=== PATIENT | male | born 1950 ===

== ENCOUNTER 2018-04-14 23:13 | Inpatient (IN) | payer MEDICARE ==
[2018-04-15] MEDS ORDERED: Sodium Chloride 0.9% 1,000 ML IV STA (00:44)
[2018-04-15 00:57] LABS: BASO # 0.1 K/uL (0.0-0.2); BASO % 0.6 % (0.0-2.0); EOS % 0.1 % (0.0-4.0); HEMOGLOBIN 12.1 g/dL (12.0-18.0); LYMPH # 2.8 K/uL (1.0-4.3); LYMPH % 25.8 % (20.0-40.0); MEAN CELL VOLUME 93.1 fl (80.0-94.0); MEAN CORPUSCULAR HEMOGLOBIN 31.6 pg (27.0-31.0); MEAN CORPUSCULAR HGB CONC 33.9 g/dL (33.0-37.0); MEAN PLATELET VOLUME 7.2 fl (7.2-11.7); MONO # 1.4 K/uL (0.0-0.8); MONO % 12.9 % (0.0-10.0); NEUT # 6.6 K/uL (1.8-7.0); NEUT % 60.6 % (50.0-75.0); NRBC % 0.1 % (0.0-0.0); RBC 3.84 Mil/uL (4.40-5.90); WHITE BLOOD COUNT 10.8 K/uL (4.8-10.8)
--- NOTE | 2018-04-15 00:58 | ED PDOC ---
HPI: General Adult Time Seen by Provider: 04/14/18 23:46 Chief Complaint (Nursing): Fever Chief Complaint (Provider): Fever History Per: Patient History/Exam Limitations: no limitations Onset/Duration Of Symptoms: Days (x2) Current Symptoms Are (Timing): Still Present Additional Complaint(s): 67 year old male presents to ED with complaints of fever, chills, and weakness x2 days and has a past medical history of HTN, BPH, and depression. Patient states he was recently admitted at [facility] for 1 week with a diagnosis of PNA. States he subsequently went to [facility] rehab facility and was discharged with an indwelling [place] catheter. Notes onset of symptoms after return home. (+) weight loss. (-) vomiting or diarrhea. Of note, patient is on a course of Bactrim currently and confirms that he is compliant with all prescribed medications. PCP: Alex Flores Past Medical History Reviewed: Historical Data, Nursing Documentation, Vital Signs Vital Signs: Last Vital Signs Temp 97.4 F L 04/15/18 03:59 Pulse 81 04/15/18 03:59 Resp 20 04/15/18 03:59 BP 104/69 04/15/18 03:59 Pulse Ox 97 04/15/18 03:59 - Medical History PMH: Anxiety, COPD, Depression, HIV, HTN, Pneumonia Denies: No Chronic Diseases - Family History Family History: States: No Known Family Hx - Living Arrangements Living Arrangements: With Family - Home Medications Home Medications: Ambulatory Orders Medication Instructions Recorded Carvedilol [Coreg] 1 tab PO DAILY 04/15/18 Clopidogrel [Plavix] 75 mg PO DAILY 04/15/18 Pantoprazole [Protonix EC Tab] 40 mg PO DAILY 04/15/18 Sertraline [Zoloft] 100 mg PO DAILY 04/15/18 Sulfamethoxazole/Trimethoprim 160 - 800 mg PO DAILY 04/15/18 [Bactrim 400-80 mg Tablet] - Allergies Allergies/Adverse Reactions: Allergies Allergy/AdvReac Type Severity Reaction Status Date / Time No Known Allergies Allergy Verified 04/14/18 23:19 Review of Systems ROS Statement: Except As Marked, All Systems Reviewed And Found Negative Constitutional: Positive for: Fever, Chills, Weakness, Weight loss Gastrointestinal: Negative for: Vomiting, Diarrhea Physical Exam - Reviewed Nursing Documentation Reviewed: Yes Vital Signs Reviewed: Yes - Physical Exam Appears: Positive for: Non-toxic, No Acute Distress (Febrile). Negative for: Well ([place] in appearance) Skin: Positive for: Normal Color, Warm, Dry ENT: Negative for: Normal ENT Inspection (dry mucous membranes) Cardiovascular/Chest: Positive for: Regular Rate, Rhythm, Tachycardia Respiratory: Positive for: Normal Breath Sounds. Negative for: Respiratory Distress Gastrointestinal/Abdominal: Positive for: Soft. Negative for: Tenderness Extremity: Positive for: Normal ROM. Negative for: Deformity Neurologic/Psych: Positive for: Alert, Oriented. Negative for: Motor/Sensory Deficits - Laboratory Results Result Diagrams: 04/15/18 00:05 04/15/18 00:05 - ECG ECG: Positive for: Interpreted By Me, Viewed By Me ECG Rhythm: Positive for: Normal QRS, Sinus Tachycardia. Negative for: Normal ST Segment (non-specific ST segments) Rate: 112 (23:40 04/14/18) O2 Sat by Pulse Oximetry: 95 (RA) Pulse Ox Interpretation: Normal Medical Decision Making Medical Decision Makin Initial impression: 67 year old with a febrile illness in setting of recent hospitalization and indwelling [place] Initial plan: * EKG * Labs * Lact acid * CXR * NS IV * Acetaminophen 650mg PO * BCx * UCs * Influenza A B * UA * Re-eval 0110 CXR: bilateral infiltrates, more prominent in the left lower lobe. * CTA CHEST * Rocephin 1gm IVPB * Azithromycin 500mg IVPB 0129 Labs reviewed: no clinically significant abnormalities with the exception of large hematuria and WBC - indicative of UTI. Discussed case with Dr. Dickinson who covers Dr. Flores and accepts patient under his service (INPATIENT MED/SURG) Condition: fair 0230 CTA CHEST FINDINGS: Lungs: Extensive interstitial and patchy consolidation in both lungs most significant in the periphery of the left lower lobe and lingula. Scattered mild bronchiectasis and tree in bud opacities. Left lower lobe calcified granuloma. Pleural space: Trace left pleural effusion. No pneumothorax. Heart: No cardiomegaly or pericardial effusion. Bones/joints: No acute osseous abnormality. Soft tissues: No soft tissue swelling. Vasculature: Cardiac motion limits assessment of the ascending aorta. The aorta is otherwise unremarkable. No central pulmonary malignancy. Lymph nodes: No adenopathy. Kidneys and ureters: Partially visualized left hydronephrosis. 4 cm left renal cyst. IMPRESSION: 1. Extensive interstitial and patchy consolidation in both lungs most significant in the periphery of the left lower lobe and lingula. Scattered mild bronchiectasis and tree in bud opacities. Leading considerations include bronchopneumonia, chronic airways disease, interstitial lung disease and pneumoconiosis. 2. Partially visualized left hydronephrosis. Correlate with dedicated renal imaging if needed. Scribe Attestation: Documented by Melissa Tate acting as a scribe for Ritesh Tamayo MD. Scribe Attestation: All medical record entries made by the Scribe were at my direction and personally dictated by me. I have reviewed the chart and agree that the record accurately reflects my personal performance of the history, physical exam, medical decision making, and the department course for this patient. I have also personally directed, reviewed, and agree with the discharge instructions and disposition. Disposition - Clinical Impression Clinical Impression: Pneumonia - Patient ED Disposition Is Patient to be Admitted: Yes - Disposition Disposition Time: 01:18 Condition: FAIR - Pt Status Changed To: Hospital Disposition Of: Inpatient (MED/SURG) - Admit Certification Admit to Inpatient:: After my assessment, the patient will require hospitalization for at least two midnights. This is because of the severity of symptoms shown, intensity of services needed, and/or the medical risk in this patient being treated as an outpatient.
[2018-04-15 01:02] LABS: URINE BACTERIA OCC (<OCC); URINE BILIRUBIN NEGATIVE (NEGATIVE); URINE BLOOD LARGE (NEGATIVE); URINE CALCIUM OXALATE CRYSTALS FEW /hpf (<OCC); URINE CLARITY CLOUDY (Clear); URINE COLOR YELLOW (YELLOW); URINE GLUCOSE (UA) NEG (Normal); URINE LEUKOCYTE ESTERASE MOD Leu/uL (Negative); URINE PROTEIN 100 mg/dL (NEGATIVE); URINE UROBILINOGEN 0.2-1.0 mg/dL (0.2-1.0)
[2018-04-15] MEDS ORDERED: Azithromycin 500 MG in Sodium Chloride 0.9% 250 ML IVPB STA (01:09)
[2018-04-15 01:13] LABS: CALCIUM 8.8 mg/dL (8.4-10.2); GFR AFRICAN-AMERICAN > 60; GFR NON-AFRICAN AMERICAN > 60
[2018-04-15 01:16] LABS: ALB/GLOB RATIO 0.7 (1.0-2.1); ALBUMIN 3.4 g/dL (3.5-5.0); ALT/SGPT 26 U/L (21-72); AST/SGOT 71 U/L (17-59); BLOOD UREA NITROGEN 28 mg/dl (9-20)
[2018-04-15] MEDS ORDERED: Sodium Chloride 0.9% 50 ML IV ONE (01:28)
[2018-04-15] MEDS ORDERED: Iohexol 300 100 ML IJ ONE (01:28)
[2018-04-15] MEDS ORDERED: cefTRIAXone (Rocephin) 1 gm Inj ONE (01:45)
[2018-04-15] MEDS ORDERED: Sodium Chloride 3% for Inhalation 4 ML VIAL.NEB IH PRN (06:38)
[2018-04-15 07:55] LABS: BASO % 0.4 % (0.0-2.0); HEMOGLOBIN 10.3 g/dL (12.0-18.0); LYMPH # 2.1 K/uL (1.0-4.3); MEAN CELL VOLUME 92.9 fl (80.0-94.0); MEAN CORPUSCULAR HEMOGLOBIN 31.7 pg (27.0-31.0); MEAN CORPUSCULAR HGB CONC 34.1 g/dL (33.0-37.0); MEAN PLATELET VOLUME 6.7 fl (7.2-11.7); MONO # 1.1 K/uL (0.0-0.8); MONO % 12.5 % (0.0-10.0); NEUT # 5.3 K/uL (1.8-7.0); NEUT % 62.1 % (50.0-75.0); RBC 3.25 Mil/uL (4.40-5.90); RED CELL DISTRIBUTION WIDTH 17.8 % (11.5-14.5); WHITE BLOOD COUNT 8.6 K/uL (4.8-10.8)
[2018-04-15 08:21] LABS: LDL CHOLESTEROL 76 mg/dL (0-129)
[2018-04-15 08:26] LABS: T4 3.73 ug/dl (5.5-11.0)
[2018-04-15 08:55] LABS: ALB/GLOB RATIO 0.7 (1.0-2.1); ALBUMIN 2.6 g/dL (3.5-5.0); ALT/SGPT 35 U/L (21-72); AST/SGOT 47 U/L (17-59); BLOOD UREA NITROGEN 23 mg/dl (9-20); CALCIUM 8.1 mg/dL (8.4-10.2); GFR AFRICAN-AMERICAN > 60; GFR NON-AFRICAN AMERICAN > 60; HDL CHOLESTEROL 19 MG/DL (30-70)
--- NOTE | 2018-04-15 09:29 | IP.NPCORE ---
Pneumonia Progress Notes - Oxygenation Assessment (REQUIRED) Documented 02: Yes O2 Saturation: 97 Oxygen Delivery Method: Room Air - Blood Cultures (REQUIRED) Culture drawn: Yes - Initial Antibiotic Initial Antibiotic given within Four Hours:: Yes - Appropriate Antibiotic Appropriate Antibiotic within 24 hours of Admission:: Yes Current Antibiotic: Rocephin/Zithromax - Pneumonia Vaccine Pneumonia Vaccine: Yes (After age 65)
[2018-04-15] MEDS ORDERED: Azithromycin 500 MG in Sodium Chloride 0.9% 250 ML IVPB SCH (09:45)
--- NOTE | 2018-04-15 09:46 | CT ---
PROCEDURE: CT Chest with contrast HISTORY: B/L infiltrates COMPARISON: None. TECHNIQUE: Contiguous axial images were obtained through the chest with intravenous contrast enhancement. Sagittal and coronal reconstructions were performed. IV contrast: 85 mL Omnipaque 300 Radiation dose (DLP): 178 mGy-cm. This CT exam was performed using one or more of the following dose reduction techniques: Automated exposure control, adjustment of the mA and/or kV according to patient size, and/or use of iterative reconstruction technique. FINDINGS: LUNGS: Bilateral hyperaeration and bilateral scattered prominent interstitial lung markings suggestive of interstitial lung disease. Scattered multi focal bilateral bronchiectasis and bilateral scattered tree in bud inflammatory like changes present. Patchy bilateral areas of consolidation blend with traction bronchiectasis most pronounced in the left mid to lower lung zone ; here the left consolidation blends with left pleural thickening. Several of the small amorphous areas of scattered bilateral lung opacities have some nodular configuration to them. This is nonspecific. Without prior studies to establish stability, follow-up CT chest with 6 months is recommended MEDIASTINUM: Unremarkable thoracic aorta. No aneurysm or dissection. Normal sized heart. Main pulmonary artery unremarkable. No vascular congestion. No lymphadenopathy. PLEURA: No pleural fluid. No pneumothorax. Pleural thickening most extensive mid to lower lung zone contiguous with the left lung consolidation and blending left traction bronchiectasis BONES: No fracture. No destructive lesion. UPPER ABDOMEN: A 3.5 cm exophytic left renal cyst is suggested. A smaller prior 1.6 cm hypodensity in the left intrarenal pelvis is noted the left kidney is not fully visualized-this may represent a left parapelvic cyst. Left hydronephrosis is not excluded. Follow-up recommended. Consider renal ultrasound to further evaluate OTHER FINDINGS: . IMPRESSION: Nonspecific bilateral patchy interstitial lung disease -with a reticular nodular component. There are small cystic emphysematous changes seen peripherally. There are left traction bronchiectasis changes that blend with coalescing left lung consolidation and also blend with left pleural reaction. These latter findings are in the left mid to lower lung zone. Mixed pathologies are suspect -for example chronic interstitial lung disease, bronchopneumonia. Underlying neoplasm not excluded. Consider follow-up CT chest with 6 months is recommended Left exophytic renal cyst. Possible left parapelvic renal cyst -left intrarenal pelviectasis not excluded. Consider renal ultrasound. Concordant results (preliminary interpretation) provided by [employer].
[2018-04-15] MEDS: Pantoprazole 40 mg EC Tab PO SCH (09:56)
--- NOTE | 2018-04-15 10:26 | RAD ---
HISTORY: Fever COMPARISON: No prior. FINDINGS: LUNGS: Lungs appear mildly hyperinflated. Coarsened interstitial the changes (reticulonodular appearance) suggest underlying interstitial fibrosis. There is patchy somewhat lobular pleural-based masslike opacity in the left lateral mid to lower lung zone with questionable associated on scarring fibrosis and possibly bronchiectasis. . PLEURA: No significant pleural effusion identified, no pneumothorax apparent. CARDIOVASCULAR: Normal. OSSEOUS STRUCTURES: No significant abnormalities. VISUALIZED UPPER ABDOMEN: Normal. OTHER FINDINGS: None. IMPRESSION: Lungs appear mildly hyperinflated. Coarsened interstitial the changes (reticulonodular appearance) suggest underlying interstitial fibrosis. There is patchy somewhat lobular pleural-based masslike opacity in the left lateral mid to lower lung zone with questionable associated on scarring fibrosis and possibly bronchiectasis. .
[2018-04-15] MEDS: Clindamycin 600mg/50ml NS 600 MG/50 ML BAG IVPB SCH ×2 (10:34→17:00)
[2018-04-15] MEDS: Enoxaparin 40 mg Syringe SC SCH (10:35)
[2018-04-15] MEDS: Piperacillin/Tazobact 3.375 GM in Sodium Chloride 0.9% 100 ML IVPB SCH ×3 (10:35→21:04)
--- NOTE | 2018-04-15 11:05 | CARD ---
APPROVED REPORT EKG Measurement Heart [id number] <Conclusion> Sinus tachycardia Anterior infarct, age undetermined Abnormal ECG
--- NOTE | 2018-04-15 12:09 | CP.PCM.HP ---
History of Present Illness - History of Present Illness History of Present Illness: CC: Fever. 67 y/o M, PMHx COPD, PNA, HIV +, HTN, [facility], while in the ER TMAx 101.2, that began 2 days [employer], increased at home to 102 F, on DOA, associated to chills, generalized weakness and dry cough with no relief. Hx of been discharged recently from [facility] with a indwelling [place] Cath after treated for PNA. Worsening symptoms: Weight loss, not eating well. Aggravated factor: movements/exercise. CT Chest showed: Nonspecific b/l patches interstitial lung disease with a reticular nodular component. There are small cystic emphysematous changes seen peripherally. There are L traction bronchiectasis changes that blend with coalescing left lung consolidation and also blend with left pleural effusion. These latter findings are in the left mid to lower lung zone. Mixed pathologies are suspect for example chronic interstitial lung disease, bronchopneumonia. Underlying neoplasm not excluded. Left exophytic renal cyst. Possible Left parapelvic renal cyst-left intrarenal pelviectasis not excluded. EKG: Sinus tachycardia. Anterior infarct age undetermined. Present on Admission - Present on Admission Any Indicators Present on Admission: No Review of Systems - Constitutional Constitutional: Chills, Fever, Weakness, Other (decreased appetite.) - EENT Eyes: Other (negative) Ears: Other (negative) Nose/Mouth/Throat: Other (negative) - Cardiovascular Cardiovascular: Rapid Heart Rate - Respiratory Respiratory: Cough (dry occasional.) - Gastrointestinal Gastrointestinal: Other (negative) - Genitourinary Genitourinary: Other (negative) - Musculoskeletal Musculoskeletal: Muscle Weakness - Integumentary Integumentary: Other (negative) - Neurological Neurological: Other (negative) - Psychiatric Psychiatric: Anxiety, Depression - Endocrine Endocrine: Change in Body Appearance - Hematologic/Lymphatic Hematologic: Other (negative) Past Patient History - Past Medical History & Family History Past Medical History?: Yes Pertinent Family History: Unknown - Past Social History Smoking Status: Former Smoker Alcohol: None Drugs: Denies Home Situation {Lives}: With Family - CARDIAC Hx Cardiac Disorders: Yes Hx Hypertension: Yes - PULMONARY Hx Respiratory Disorders: Yes Hx Chronic Obstructive Pulmonary Disease (COPD): Yes Hx Pneumonia: Yes - NEUROLOGICAL Hx Neurological Disorder: No - HEENT Hx HEENT Problems: No - RENAL Hx Chronic Kidney Disease: No - ENDOCRINE/METABOLIC Hx Endocrine Disorders: No - HEMATOLOGICAL/ONCOLOGICAL Hx Blood Disorders: Yes Hx Human Immunodeficiency Virus (HIV): Yes - INTEGUMENTARY Hx Dermatological Problems: No - MUSCULOSKELETAL/RHEUMATOLOGICAL Hx Musculoskeletal Disorders: Yes (generalized muscle weakness) Hx Falls: No - GENITOURINARY/GYNECOLOGICAL Hx Genitourinary Disorders: Yes (urinary retention) Hx Prostate Problems: Yes (Enlargement) Hx Urinary Tract Infection: Yes Other/Comment: Suprapubic cathether - PSYCHIATRIC Hx Psychophysiologic Disorder: Yes Hx Anxiety: Yes Hx Depression: Yes Hx Substance Use: No - SURGICAL HISTORY Hx Surgeries: Yes - ANESTHESIA Hx Anesthesia: Yes Hx Anesthesia Reactions: No Meds Allergies/Adverse Reactions: Allergies Allergy/AdvReac Type Severity Reaction Status Date / Time No Known Allergies Allergy Verified 04/14/18 23:19 Physical Exam - Constitutional Appears: No Acute Distress - Head Exam Head Exam: NORMAL INSPECTION - Eye Exam Eye Exam: PERRL - ENT Exam ENT Exam: Normal Exam - Neck Exam Neck exam: Positive for: Normal Inspection - Respiratory Exam Respiratory Exam: NORMAL BREATHING PATTERN - Cardiovascular Exam Cardiovascular Exam: REGULAR RHYTHM - GI/Abdominal Exam GI & Abdominal Exam: Normal Bowel Sounds, Soft Additional comments: Suprapubic catheter - Extremities Exam Extremities exam: Positive for: normal inspection - Neurological Exam Neurological exam: Alert, Oriented x3 Additional comments: Generalized weakness. No motor/sensory deficit. - Psychiatric Exam Psychiatric exam: Anxious, Depressed - Skin Skin Exam: Warm Results - Vital Signs Recent Vital Signs: Last Vital Signs Temp 97.6 F 04/15/18 08:00 Pulse 91 H 04/15/18 09:56 Resp 18 04/15/18 08:00 BP 127/77 04/15/18 09:56 Pulse Ox 97 04/15/18 09:29 reviewed Elias - Labs Result Diagrams: 04/15/18 07:49 04/15/18 07:49 Labs: Laboratory Results - last 24 hr 04/15/18 04/15/18 04/15/18 00:05 00:05 00:05 WBC 10.8 RBC 3.84 L Hgb 12.1 Hct 35.7 MCV 93.1 MCH 31.6 H MCHC 33.9 RDW 18.0 H Plt Count 564 H MPV 7.2 Neut % (Auto) 60.6 Lymph % (Auto) 25.8 [place] % (Auto) 12.9 H Eos % (Auto) 0.1 Baso % (Auto) 0.6 Neut # (Auto) 6.6 Lymph # (Auto) 2.8 [place] # (Auto) 1.4 H Eos # (Auto) 0.0 Baso # (Auto) 0.1 Sodium 132 Potassium 5.4 H Chloride 97 L Carbon Dioxide 25 Anion Gap 15 BUN 28 H Creatinine 1.2 Est GFR ( Amer) > 60 Est GFR (Non-Af Amer) > 60 Random Glucose 103 Lactic Acid 1.1 Calcium 8.8 Total Bilirubin 1.1 AST 71 H ALT 26 Alkaline Phosphatase 84 Total Protein 8.1 Albumin 3.4 L Globulin 4.7 H Albumin/Globulin Ratio 0.7 L Triglycerides Cholesterol LDL Cholesterol Direct HDL Cholesterol Thyroxine (T4) TSH 3rd Generation Urine Color Urine Clarity Urine pH Ur Specific [place] Urine Protein Urine Glucose (UA) Urine Ketones Urine Blood Urine Nitrate Urine Bilirubin Urine Urobilinogen Ur Leukocyte Esterase Urine RBC (Auto) Urine Microscopic WBC Calcium Oxalate Crystal Urine Bacteria Influenza Typ A,B (EIA) 04/15/18 04/15/18 04/15/18 00:05 00:30 07:49 WBC 8.6 RBC 3.25 L Hgb 10.3 L Hct 30.2 L MCV 92.9 MCH 31.7 H MCHC 34.1 RDW 17.8 H Plt Count 463 H D MPV 6.7 L Neut % (Auto) 62.1 Lymph % (Auto) 25.0 [place] % (Auto) 12.5 H Eos % (Auto) 0.0 Baso % (Auto) 0.4 Neut # (Auto) 5.3 Lymph # (Auto) 2.1 [place] # (Auto) 1.1 H Eos # (Auto) 0.0 Baso # (Auto) 0.0 Sodium Potassium Chloride Carbon Dioxide Anion Gap BUN Creatinine Est GFR ( Amer) Est GFR (Non-Af Amer) Random Glucose Lactic Acid Calcium Total Bilirubin AST ALT Alkaline Phosphatase Total Protein Albumin Globulin Albumin/Globulin Ratio Triglycerides Cholesterol LDL Cholesterol Direct HDL Cholesterol Thyroxine (T4) TSH 3rd Generation Urine Color Yellow Urine Clarity Cloudy Urine pH 7.0 Ur Specific [place] 1.019 Urine Protein 100 Urine Glucose (UA) Neg Urine Ketones Negative Urine Blood Large Urine Nitrate Negative Urine Bilirubin Negative Urine Urobilinogen 0.2-1.0 Ur Leukocyte Esterase Mod Urine RBC (Auto) 1234 H Urine Microscopic WBC 72 H Calcium Oxalate Crystal Few H Urine Bacteria Occ H Influenza Typ A,B (EIA) Negative for flu a/b 04/15/18 07:49 WBC RBC Hgb Hct MCV MCH MCHC RDW Plt Count MPV Neut % (Auto) Lymph % (Auto) [place] % (Auto) Eos % (Auto) Baso % (Auto) Neut # (Auto) Lymph # (Auto) [place] # (Auto) Eos # (Auto) Baso # (Auto) Sodium 134 Potassium 4.8 Chloride 99 Carbon Dioxide 27 Anion Gap 13 BUN 23 H Creatinine 1.2 Est GFR ( Amer) > 60 Est GFR (Non-Af Amer) > 60 Random Glucose 101 Lactic Acid Calcium 8.1 L Total Bilirubin 0.5 AST 47 ALT 35 Alkaline Phosphatase 74 Total Protein 6.3 Albumin 2.6 L D Globulin 3.6 Albumin/Globulin Ratio 0.7 L Triglycerides 99 Cholesterol 127 LDL Cholesterol Direct 76 HDL Cholesterol 19 L Thyroxine (T4) 3.73 L TSH 3rd Generation 3.42 Urine Color Urine Clarity Urine pH Ur Specific [place] Urine Protein Urine Glucose (UA) Urine Ketones Urine Blood Urine Nitrate Urine Bilirubin Urine Urobilinogen Ur Leukocyte Esterase Urine RBC (Auto) Urine Microscopic WBC Calcium Oxalate Crystal Urine Bacteria Influenza Typ A,B (EIA) reviewed J.P. - EKG Data EKG comments: reviewed J.P. - Imaging and Cardiology CT scan - chest Status: Report reviewed by me ([email or web address].) Chest x-ray Status: Report reviewed by me (J.P.) Assessment & Plan (1) Pneumonia Status: Acute Priority: High (2) HIV (human immunodeficiency virus infection) Status: Acute Priority: High - Assessment and Plan (Free Text) Plan: F/U Echo, Blood C-S, U C-S, Sputum C-S, Culture Legionella, Contiue Vanco, Clinda, Lovenox, Coreg, Plavix and rest of Tx. Pt may need Bronchoscopy. F/U abx coverage as per ID [employer] plm consultant. F/U ID consult. - Date & Time Date: 04/15/18 Time: 11:30
--- NOTE | 2018-04-15 15:11 | CP.PCM.PN ---
Subjective - Date & Time of Evaluation Date of Evaluation: 04/15/18 Time of Evaluation: 15:00 - Subjective Subjective: I D NOTE PATIENT EXAMINED,CHART REVIEWED ORDERS DISCUSSED,FULL CONSULT DICTATED WILL LIKELY NEED BRONCHOSCOPY Objective - Vital Signs/Intake and Output Vital Signs (last 24 hours): Temp Pulse Resp BP Pulse Ox 97.6 F 91 H 18 127/77 97 04/15/18 08:00 04/15/18 09:56 04/15/18 08:00 04/15/18 09:56 04/15/18 09:29 - Medications Medications: Current Medications Carvedilol (Coreg) 6.25 mg PO DAILY [facility] Last Admin: 04/15/18 09:56 Dose: 6.25 mg Clopidogrel Bisulfate (Plavix) 75 mg PO DAILY [facility] Last Admin: 04/15/18 09:56 Dose: 75 mg Enoxaparin Sodium (Lovenox) 40 mg SC DAILY AMINA PRN Reason: Protocol Last Admin: 04/15/18 10:35 Dose: 40 mg Piperacillin Sod/Tazobactam (Sod 3.375 gm/ Sodium Chloride) 100 mls @ 100 mls/ hr IVPB Q6 AMINA PRN Reason: Protocol Last Admin: 04/15/18 10:35 Dose: 100 mls/hr Clindamycin Phosphate (Cleocin In Normal Saline) 600 mg in 50 mls @ 50 mls/hr IVPB Q8 AMINA PRN Reason: Protocol Last Admin: 04/15/18 10:34 Dose: 50 mls/hr Ondansetron HCl (Zofran Inj) 4 mg IVP Q6 PRN PRN Reason: Nausea/Vomiting Pantoprazole Sodium (Protonix Ec Tab) 40 mg PO DAILY [facility] Last Admin: 04/15/18 09:56 Dose: 40 mg Sertraline HCl (Zoloft) 100 mg PO DAILY [facility] Last Admin: 04/15/18 09:44 Dose: 100 mg Trimethoprim/Sulfamethoxazole (Bactrim Ds Tab) 1 tab PO Q12 AMINA PRN Reason: Protocol - Labs Labs: 04/15/18 07:49 04/15/18 07:49
--- NOTE | 2018-04-15 15:53 | CARD ---
APPROVED REPORT EXAM: Two-dimensional and M-mode echocardiogram with Doppler and color Doppler. Other Information Quality : AverageRhythm : INDICATION PNA 2D DIMENSIONS IVSd1.13 (0.7-1.1cm)LVDd4.61 (3.9-5.9cm) LVOT Diameter1.99 (1.8-2.4cm)PWd1.04 (0.7-1.1cm) IVSs1.57 (0.8-1.2cm)LVDs3.64 (2.5-4.0cm) FS (%) 21.1 %PWs1.14 (0.8-1.2cm) M-Mode DIMENSIONS Left Atrium (MM)2.87 (2.5-4.0cm)Aortic Root3.50 (2.2-3.7cm) Aortic Cusp Exc.1.38 (1.5-2.0cm) Mitral Valve MV E Hxgvujip28.3cm/sMV DECEL [id number] A Lhywnrri39.4cm/s MV [id number]/A ratio1.0MVA (PHT)4.82cm2 TDI Lateral E' Peak V10.76cm/sMedial E' Peak V7.58cm/sE/Lateral E'5.8 E/Medial E'8.2 Pulmonary Valve PV Peak Gqdpciqr288.5cm/s LEFT VENTRICLE The left ventricle is normal size. The left ventricular function is normal. The left ventricular ejection fraction is within the normal range. The Ejection Fraction is 55-60%. There is normal LV segmental wall motion. The left ventricular diastolic function is normal. RIGHT VENTRICLE The right ventricle is normal size. The right ventricular systolic function is normal. ATRIA The left atrium size is normal. The right atrium size is normal. AORTIC VALVE The aortic valve is normal in structure. No aortic regurgitation is present. There is no aortic valvular stenosis. MITRAL VALVE The mitral valve is normal in structure. There is no mitral valve stenosis. There is no mitral valve regurgitation noted. TRICUSPID VALVE The tricuspid valve is normal in structure. There is no tricuspid valve regurgitation noted. PULMONIC VALVE The pulmonary valve is normal in structure. There is no pulmonic valvular regurgitation. GREAT VESSELS The aortic root is normal in size. The IVC is normal in size and collapses >50% with inspiration. PERICARDIAL EFFUSION The pericardium appears normal. <Conclusion> The left ventricle is normal size. The left ventricular function is normal. The left ventricular ejection fraction is within the normal range. The Ejection Fraction is 55-60%.
[2018-04-15] MEDS: Tmp-Smz 800 mg-160 mg DS Tab PO SCH ×2 (16:45→21:04)
[2018-04-15 20:42] LABS: HEPATITIS B SURFACE AG Negative (NEGATIVE)
[2018-04-15 20:48] LABS: HEPATITIS A IGM NEGATIVE (NEGATIVE); HEPATITIS B CORE AB NEGATIVE (NEGATIVE)
[2018-04-15 21:00] LABS: HEPATITIS C ANTIBODY NEGATIVE (NEGATIVE)
[2018-04-16] MEDS: Clindamycin 600mg/50ml NS 600 MG/50 ML BAG IVPB SCH ×3 (01:07→16:19)
--- NOTE | 2018-04-16 01:41 | CON ---
DATE: 04/15/2018 INFECTIOUS DISEASE CONSULT HISTORY OF PRESENT ILLNESS: Quite an unusual clinical situation. Apparently according to the patient, recently diagnosed with HIV disease at [facility]. I am not sure of the time hospitalized, but he also was at [facility] which is a [facility] and subacute rehab, unsure of that situation. He came to the [facility] apparently one day after being discharged and is quite cachectic and the CT scan has a significant bilateral pneumonia .He is clinically dehydrated. The patient states that he has fever and chills and has nonproductive cough. We were unable to obtain any HIV labs other than the verbal report.His white count is 8.6, hemoglobin 10.3. His platelet count is 463. He has 62% polys. His BUN is 28 on admission, today is 23; creatinine 1.2. GFR is greater than 60. AST is 71 and ALT is 26. His HDL cholesterol was 19, LDL was 76, and his cholesterol was 126. His chest x-ray show lungs appear mildly hyperinflated, coarsened interstitial changes, reticulonodular appearance suggesting underlying interstitial fibrosis. There is a patchy somewhat lobular pleural based mass like opacity in the left mid to low lung zone with questionable associated scarring fibrosis and possible bronchiectasis. CT scan of the chest was reviewed and has some marked changes bilaterally. PHYSICAL EXAMINATION: GENERAL: The patient is alert, but when speaking with him has the feel of an early dementia although he can say where he was last week and knows a lot of issues. HEENT: The patient is quite cachectic. He has significant facial wasting. NECK: Supple. LUNGS: Has decreased breath sounds actually bilaterally in all lung neumann and scattered coarse rhonchi. HEART: Regular sinus rhythm. ABDOMEN: Soft, has hepatomegaly. EXTREMITIES: No CCE, but there is actually peripheral wasting. At present time, awaiting his HIV labs. Apparently, he is not on any antiretrovirals. I have discussed with nurse practitioner early in the day. At present time, we will treat him with clindamycin which will give some PCP coverage, Zosyn and also with p.o. Bactrim. Again awaiting of the labs to decide what antiretroviral to place him on. Mark Anthony Vital MD MTDD
[2018-04-16] MEDS: Piperacillin/Tazobact 3.375 GM in Sodium Chloride 0.9% 100 ML IVPB SCH ×4 (03:20→21:16)
[2018-04-16] MEDS ORDERED: Azithromycin 500 MG in Sodium Chloride 0.9% 250 ML IVPB SCH (06:00)
[2018-04-16] MEDS: Tmp-Smz 800 mg-160 mg DS Tab PO SCH ×2 (09:49→21:04)
[2018-04-16] MEDS: Pantoprazole 40 mg EC Tab PO SCH (09:50)
[2018-04-16] MEDS: Enoxaparin 40 mg Syringe SC SCH (09:50)
--- NOTE | 2018-04-16 10:04 | CT ---
PROCEDURE: CT Abdomen and Pelvis without intravenous contrast HISTORY: Hydronephrosis COMPARISON: None. TECHNIQUE: Contiguous helical/transaxial sections of the abdomen pelvis performed before and following intravenous injection of contrast material Contrast dose: Radiation dose: Total exam DLP = 221.06 mGy-cm. This CT exam was performed using one or more of the following dose reduction techniques: Automated exposure control, adjustment of the mA and/or kV according to patient size, and/or use of iterative reconstruction technique. FINDINGS: LOWER THORAX: Chronic interstitial changes and areas of scarring both lung bases. LIVER: Liver is enlarged measuring just over 20 cm in CC dimension. No obvious hepatic mass or collection seen on this limited noncontrast exam. GALLBLADDER AND BILE DUCTS: Unremarkable. PANCREAS: Unremarkable. No gross lesion or ductal dilatation. SPLEEN: . Unremarkable. ADRENALS: No adrenal lesions. KIDNEYS AND URETERS: Delayed pyelogram related to injection of contrast material during CT scan chest earlier same day. Moderate left-sided hydronephrosis. No evidence of obstructing calculi Bilateral renal cysts. . There is mild columnization of the right ureter. VASCULATURE: Unremarkable. No aortic aneurysm. BOWEL: Evaluation of the bowel is limited due to lack of oral contrast material. The stomach is collapsed. Visualized loops of small bowel exhibit normal contour and caliber. No evidence acute mechanical small bowel obstruction. There is a large amount of stool seen throughout the colon consistent with fecal retention/ constipation. APPENDIX: Appendix is not seen with complete certainty however no evidence of appendicitis. PERITONEUM: There is a small amount of free fluid seen within the pelvis of uncertain etiology. . Mild infiltration changes within the mesenteries also noted nonspecific. LYMPH NODES: Unremarkable. No enlarged lymph nodes. BLADDER: In situ Fulton catheter within the suprapubic cystostomy. Small amount of air is present within the urinary bladder likely due to the presence of a Fulton catheter itself. . REPRODUCTIVE: Enlarged prostate gland. Note made of a small amount of air within the penis of uncertain etiology BONES: Mild multilevel degenerative spondylosis of the thoracic and lumbar spine. OTHER FINDINGS: None. IMPRESSION: Hepatomegaly. Delayed pyelogram with mild left-sided hydronephrosis as above. In situ Fulton catheter within a suprapubic cystostomy. Small amount of air is present within the urinary bladder likely due to the presence of the Fulton catheter itself. Enlarged prostate gland. Small bubble of air seen within the penis of uncertain etiology. Small amount of pelvic fluid of uncertain etiology.
--- NOTE | 2018-04-16 11:40 | CP.PCM.PN ---
Subjective - Date & Time of Evaluation Date of Evaluation: 04/16/18 Time of Evaluation: 09:15 - Subjective Subjective: F/U PNA no SOB , no RODRIGUEZ, no cough Objective - Vital Signs/Intake and Output Vital Signs (last 24 hours): Temp Pulse Resp BP Pulse Ox 98.2 F 84 18 120/71 95 04/16/18 07:44 04/16/18 09:50 04/16/18 07:44 04/16/18 09:50 04/16/18 07:44 - Medications Medications: Current Medications Carvedilol (Coreg) 6.25 mg PO DAILY [facility] Last Admin: 04/16/18 09:50 Dose: 6.25 mg Clopidogrel Bisulfate (Plavix) 75 mg PO DAILY [facility] Last Admin: 04/16/18 09:50 Dose: 75 mg Enoxaparin Sodium (Lovenox) 40 mg SC DAILY [facility] PRN Reason: Protocol Last Admin: 04/16/18 09:50 Dose: 40 mg Piperacillin Sod/Tazobactam (Sod 3.375 gm/ Sodium Chloride) 100 mls @ 100 mls/ hr IVPB Q6 [facility] PRN Reason: Protocol Last Admin: 04/16/18 09:51 Dose: 100 mls/hr Clindamycin Phosphate (Cleocin In Normal Saline) 600 mg in 50 mls @ 50 mls/hr IVPB Q8 [facility] PRN Reason: Protocol Last Admin: 04/16/18 09:49 Dose: 50 mls/hr Ondansetron HCl (Zofran Inj) 4 mg IVP Q6 [facility] PRN Reason: Nausea/Vomiting Pantoprazole Sodium (Protonix Ec Tab) 40 mg PO DAILY [facility] Last Admin: 04/16/18 09:50 Dose: 40 mg Sertraline HCl (Zoloft) 100 mg PO DAILY [facility] Last Admin: 04/16/18 09:50 Dose: 100 mg Trimethoprim/Sulfamethoxazole (Bactrim Ds Tab) 1 tab PO Q12 [facility] PRN Reason: Protocol Last Admin: 04/16/18 09:49 Dose: 1 tab - Labs Labs: 04/15/18 07:49 04/15/18 07:49 - Constitutional Appears: Chronically Ill - Head Exam Head Exam: NORMAL INSPECTION - Eye Exam Eye Exam: PERRL - ENT Exam ENT Exam: Normal Exam - Neck Exam Neck Exam: Normal Inspection - Respiratory Exam Respiratory Exam: Clear to Ausculation Bilateral - Cardiovascular Exam Cardiovascular Exam: REGULAR RHYTHM - GI/Abdominal Exam GI & Abdominal Exam: Hyperactive Bowel Sounds, Normal Bowel Sounds - Exam Additional comments: suprapubic catheter - Extremities Exam Extremities Exam: Normal Inspection - Back Exam Back Exam: NORMAL INSPECTION - Neurological Exam Neurological Exam: Alert, Oriented x3 Additional comments: no focal motor/sensory deficit - Psychiatric Exam Psychiatric exam: Anxious - Skin Skin Exam: Warm Assessment and Plan (1) Pneumonia Status: Acute (2) HIV (human immunodeficiency virus infection) Status: Chronic - Assessment and Plan (Free Text) Plan: Atb treatment as per ID, f/u Urology consult , U C-S yeast , f/u ID
[2018-04-16] MEDS: Nystatin 100,000 Units/ml Oral Susp 5 ml UD PO SCH (21:04)
[2018-04-17] MEDS: Clindamycin 600mg/50ml NS 600 MG/50 ML BAG IVPB SCH ×3 (01:00→17:52)
[2018-04-17] MEDS: Piperacillin/Tazobact 3.375 GM in Sodium Chloride 0.9% 100 ML IVPB SCH ×4 (04:53→21:51)
[2018-04-17 07:18] LABS: % CD4 (T HELPER CELL) 12 Percent (30-61); % CD8 (SUPPRESSOR T CELL) 63 Percent (12-42); ABSOLUTE CD4 CELLS 184 Cells/mcL (490-1740); ABSOLUTE CD8 CELLS 933 Cells/mcL (180-1170); ABSOLUTE LYMPHOCYTES 1481 Cells/mcL (850-3900)
--- NOTE | 2018-04-17 09:06 | CP.PCM.PN ---
Subjective - Date & Time of Evaluation Date of Evaluation: 04/17/18 Time of Evaluation: 09:00 - Subjective Subjective: I D NOTE POSITIVE BLOOD CULTURE FOR YEAST HAVE ORDERED SERUM CRYPTANTIGEN START DIFLUCAN 400MG IVPB Q24H REMOVE ANY PRESENT CATHETERS CD4 IS 12,VL IS PENDING START TRUVADA AND ISENTRESS 400MG PO BID CHECK [id number] ,GENOYYPE CT OF HEAD ORDERED ALSO Objective - Vital Signs/Intake and Output Vital Signs (last 24 hours): Temp Pulse Resp BP Pulse Ox 98.4 F 97 H 20 136/81 97 04/16/18 23:59 04/16/18 23:59 04/16/18 23:59 04/16/18 23:59 04/16/18 23:59 Intake and Output: 04/17/18 04/17/18 06:59 18:59 Intake Total 250 Output Total 500 Balance -250 - Medications Medications: Current Medications Carvedilol (Coreg) 6.25 mg PO DAILY [facility] Last Admin: 04/16/18 09:50 Dose: 6.25 mg Clopidogrel Bisulfate (Plavix) 75 mg PO DAILY [facility] Last Admin: 04/16/18 09:50 Dose: 75 mg Enoxaparin Sodium (Lovenox) 40 mg SC DAILY [facility] PRN Reason: Protocol Last Admin: 04/16/18 09:50 Dose: 40 mg Piperacillin Sod/Tazobactam (Sod 3.375 gm/ Sodium Chloride) 100 mls @ 100 mls/ hr IVPB Q6 [facility] PRN Reason: Protocol Last Admin: 04/17/18 04:53 Dose: 100 mls/hr Clindamycin Phosphate (Cleocin In Normal Saline) 600 mg in 50 mls @ 50 mls/hr IVPB Q8 [facility] PRN Reason: Protocol Last Admin: 04/17/18 01:00 Dose: 50 mls/hr Fluconazole (Diflucan Iv 400mg/200ml Ns) 200 mls @ 100 mls/hr IVPB DAILY [facility] PRN Reason: Protocol Nystatin (Nystatin Oral Susp) 5 ml PO QID [facility] Last Admin: 04/16/18 21:04 Dose: 5 ml Pantoprazole Sodium (Protonix Ec Tab) 40 mg PO DAILY [facility] Last Admin: 04/16/18 09:50 Dose: 40 mg Sertraline HCl (Zoloft) 100 mg PO DAILY [facility] Last Admin: 04/16/18 09:50 Dose: 100 mg Trimethoprim/Sulfamethoxazole (Bactrim Ds Tab) 1 tab PO Q12 [facility] PRN Reason: Protocol Last Admin: 04/16/18 21:04 Dose: 1 tab - Labs Labs: 04/15/18 07:49 04/15/18 07:49
[2018-04-17] MEDS: Pantoprazole 40 mg EC Tab PO SCH (09:08)
[2018-04-17] MEDS: Enoxaparin 40 mg Syringe SC SCH (09:08)
[2018-04-17] MEDS: Tmp-Smz 800 mg-160 mg DS Tab PO SCH ×2 (09:08→21:51)
[2018-04-17] MEDS: Nystatin 100,000 Units/ml Oral Susp 5 ml UD PO SCH ×4 (09:09→21:51)
[2018-04-17 10:15] LABS: HEMOGLOBIN 10.1 g/dL (12.0-18.0); MEAN CORPUSCULAR HEMOGLOBIN 30.8 pg (27.0-31.0); MEAN CORPUSCULAR HGB CONC 33.1 g/dL (33.0-37.0); RBC 3.27 Mil/uL (4.40-5.90); RED CELL DISTRIBUTION WIDTH 17.5 % (11.5-14.5); WHITE BLOOD COUNT 7.3 K/uL (4.8-10.8)
[2018-04-17 11:08] LABS: ALB/GLOB RATIO 0.8 (1.0-2.1); ALBUMIN 2.5 g/dL (3.5-5.0); ALT/SGPT 34 U/L (21-72); AST/SGOT 35 U/L (17-59); BLOOD UREA NITROGEN 17 mg/dl (9-20); CALCIUM 7.8 mg/dL (8.4-10.2); GFR AFRICAN-AMERICAN > 60; GFR NON-AFRICAN AMERICAN > 60
[2018-04-17] MEDS: Emtricitabine-Tenofovir 200 mg-300 mg Tab PO SCH (11:14)
--- NOTE | 2018-04-17 11:23 | CT ---
PROCEDURE: CT HEAD WITHOUT CONTRAST. HISTORY: r/o encephalopathy COMPARISON: None available. TECHNIQUE: Axial computed tomography images were obtained through the head/brain without intravenous contrast. Radiation dose: Total exam DLP = 871.87 mGy-cm. This CT exam was performed using one or more of the following dose reduction techniques: Automated exposure control, adjustment of the mA and/or kV according to patient size, and/or use of iterative reconstruction technique. FINDINGS: HEMORRHAGE: No intracranial hemorrhage. BRAIN: There are mild chronic microangiopathic changes. There is no mass, mass effect or abnormal extra-axial fluid collection. VENTRICLES: There is moderate age-related global parenchymal volume loss and proportionate enlargement of the ventricles and cortical sulci. CALVARIUM: The skull base and calvarium are normal. PARANASAL SINUSES: Predominantly clear. MASTOID AIR CELLS: Predominantly clear. OTHER FINDINGS: None. IMPRESSION: No acute intracranial abnormality. Mild age-related involutional changes. Mild chronic microangiopathic changes and moderate age-related global parenchymal volume loss.
[2018-04-17] MEDS: Fluconazole IV 400mg/200ml NS 200 ML IVPB SCH (12:53)
--- NOTE | 2018-04-17 13:37 | CP.PCM.PN ---
Subjective - Date & Time of Evaluation Date of Evaluation: 04/17/18 Time of Evaluation: 12:40 - Subjective Subjective: F/U PNA no SOB , no cough , no RODRIGUEZ Objective - Vital Signs/Intake and Output Vital Signs (last 24 hours): Temp Pulse Resp BP Pulse Ox 97.7 F 97 H 18 136/81 93 L 04/17/18 09:00 04/17/18 09:08 04/17/18 09:00 04/17/18 09:08 04/17/18 09:00 Intake and Output: 04/17/18 04/17/18 06:59 18:59 Intake Total 250 Output Total 500 Balance -250 - Medications Medications: Current Medications Carvedilol (Coreg) 6.25 mg PO DAILY [facility] Last Admin: 04/17/18 09:08 Dose: 6.25 mg Clopidogrel Bisulfate (Plavix) 75 mg PO DAILY [facility] Last Admin: 04/17/18 09:08 Dose: 75 mg Emtricitabine/Tenofovir (Truvada 200 Mg-300 Mg) 1 tab PO 1000 [facility] Last Admin: 04/17/18 11:14 Dose: 1 tab Enoxaparin Sodium (Lovenox) 40 mg SC DAILY [facility] PRN Reason: Protocol Last Admin: 04/17/18 09:08 Dose: 40 mg Piperacillin Sod/Tazobactam (Sod 3.375 gm/ Sodium Chloride) 100 mls @ 100 mls/ hr IVPB Q6 [facility] PRN Reason: Protocol Last Admin: 04/17/18 11:13 Dose: 100 mls/hr Clindamycin Phosphate (Cleocin In Normal Saline) 600 mg in 50 mls @ 50 mls/hr IVPB Q8 [facility] PRN Reason: Protocol Last Admin: 04/17/18 09:07 Dose: 50 mls/hr Fluconazole (Diflucan Iv 400mg/200ml Ns) 200 mls @ 100 mls/hr IVPB DAILY [facility] PRN Reason: Protocol Last Admin: 04/17/18 12:53 Dose: 100 mls/hr Lactobacillus Acidophilus (Bacid Acidophilus) 1 cap PO BID [facility] Nystatin (Nystatin Oral Susp) 5 ml PO QID [facility] Last Admin: 04/17/18 12:56 Dose: 5 ml Pantoprazole Sodium (Protonix Ec Tab) 40 mg PO DAILY [facility] Last Admin: 04/17/18 09:08 Dose: 40 mg Raltegravir (Isentress) 400 mg PO 1000,1800 [facility] Last Admin: 04/17/18 11:14 Dose: 400 mg Sertraline HCl (Zoloft) 100 mg PO DAILY [facility] Last Admin: 04/17/18 09:08 Dose: 100 mg Trimethoprim/Sulfamethoxazole (Bactrim Ds Tab) 1 tab PO Q12 [facility] PRN Reason: Protocol Last Admin: 04/17/18 09:08 Dose: 1 tab - Labs Labs: 04/17/18 10:07 04/17/18 10:07 - Constitutional Appears: Chronically Ill - Head Exam Head Exam: NORMAL INSPECTION - Eye Exam Eye Exam: PERRL - ENT Exam ENT Exam: Normal Exam - Neck Exam Neck Exam: Normal Inspection - Respiratory Exam Respiratory Exam: Clear to Ausculation Bilateral - Cardiovascular Exam Cardiovascular Exam: REGULAR RHYTHM - GI/Abdominal Exam GI & Abdominal Exam: Soft, Normal Bowel Sounds - Exam Additional comments: suprapubic catheter - Extremities Exam Extremities Exam: Normal Inspection - Back Exam Back Exam: NORMAL INSPECTION - Neurological Exam Neurological Exam: Alert, Oriented x3 Additional comments: no focal motor/sensory deficit - Psychiatric Exam Psychiatric exam: Anxious - Skin Skin Exam: Warm Assessment and Plan (1) Pneumonia Status: Acute (2) HIV (human immunodeficiency virus infection) Status: Chronic - Assessment and Plan (Free Text) Plan: continue Atb as per Robbie GUEVARA added ,f/u Urology consult
[2018-04-17] MEDS: Lactobacillus Acidophilus 500 MU Cap PO SCH (16:52)
[2018-04-18] MEDS: Clindamycin 600mg/50ml NS 600 MG/50 ML BAG IVPB SCH ×3 (00:27→16:25)
[2018-04-18] MEDS: Piperacillin/Tazobact 3.375 GM in Sodium Chloride 0.9% 100 ML IVPB SCH ×2 (04:35→09:09)
[2018-04-18 07:53] LABS: HEMOGLOBIN 10.1 g/dL (12.0-18.0); MEAN CELL VOLUME 92.7 fl (80.0-94.0); MEAN CORPUSCULAR HEMOGLOBIN 31.2 pg (27.0-31.0); MEAN CORPUSCULAR HGB CONC 33.7 g/dL (33.0-37.0); RBC 3.22 Mil/uL (4.40-5.90); RED CELL DISTRIBUTION WIDTH 17.3 % (11.5-14.5); WHITE BLOOD COUNT 7.5 K/uL (4.8-10.8)
[2018-04-18 08:09] LABS: BLOOD UREA NITROGEN 14 mg/dl (9-20); CALCIUM 7.8 mg/dL (8.4-10.2); GFR AFRICAN-AMERICAN > 60; GFR NON-AFRICAN AMERICAN > 60
[2018-04-18] MEDS: Lactobacillus Acidophilus 500 MU Cap PO SCH ×2 (09:05→16:20)
[2018-04-18] MEDS: Nystatin 100,000 Units/ml Oral Susp 5 ml UD PO SCH ×4 (09:05→21:17)
[2018-04-18] MEDS: Tmp-Smz 800 mg-160 mg DS Tab PO SCH (09:05)
[2018-04-18] MEDS: Emtricitabine-Tenofovir 200 mg-300 mg Tab PO SCH (09:05)
[2018-04-18] MEDS: Pantoprazole 40 mg EC Tab PO SCH (09:06)
[2018-04-18] MEDS: Enoxaparin 40 mg Syringe SC SCH (09:07)
[2018-04-18] MEDS: Fluconazole IV 400mg/200ml NS 200 ML IVPB SCH ×2 (09:07→09:12)
[2018-04-18] MEDS ORDERED: Chlorhexidine Gluconate 1 APPL/PKT TP ONE (14:51)
--- NOTE | 2018-04-18 17:36 | CP.PCM.PN ---
Subjective - Date & Time of Evaluation Date of Evaluation: 04/18/18 Time of Evaluation: 11:00 - Subjective Subjective: F/U PNA no AD ,smiling , no SOB , no RODRIGUEZ Objective - Vital Signs/Intake and Output Vital Signs (last 24 hours): Temp Pulse Resp BP Pulse Ox 98.4 F 88 20 121/69 95 04/18/18 16:03 04/18/18 16:03 04/18/18 16:03 04/18/18 16:03 04/18/18 16:03 Intake and Output: 04/18/18 04/18/18 06:59 18:59 Intake Total 530 Output Total 750 Balance -220 - Medications Medications: Current Medications Carvedilol (Coreg) 6.25 mg PO DAILY [facility] Last Admin: 04/18/18 09:06 Dose: 6.25 mg Clopidogrel Bisulfate (Plavix) 75 mg PO DAILY [facility] Last Admin: 04/18/18 09:05 Dose: 75 mg Emtricitabine/Tenofovir (Truvada 200 Mg-300 Mg) 1 tab PO 1000 [facility] Last Admin: 04/18/18 09:05 Dose: 1 tab Clindamycin Phosphate (Cleocin In Normal Saline) 600 mg in 50 mls @ 50 mls/hr IVPB Q8 [facility] PRN Reason: Protocol Last Admin: 04/18/18 16:25 Dose: 50 mls/hr Fluconazole (Diflucan Iv 400mg/200ml Ns) 200 mls @ 100 mls/hr IVPB DAILY [facility] PRN Reason: Protocol Last Admin: 04/18/18 09:12 Dose: 100 mls/hr Lactobacillus Acidophilus (Bacid Acidophilus) 1 cap PO BID [facility] Last Admin: 04/18/18 16:20 Dose: 1 cap Nystatin (Nystatin Oral Susp) 5 ml PO QID [facility] Last Admin: 04/18/18 16:20 Dose: 5 ml Pantoprazole Sodium (Protonix Ec Tab) 40 mg PO DAILY [facility] Last Admin: 04/18/18 09:06 Dose: 40 mg Raltegravir (Isentress) 400 mg PO 1000,1800 [facility] Last Admin: 04/18/18 09:05 Dose: 400 mg Sertraline HCl (Zoloft) 100 mg PO DAILY [facility] Last Admin: 04/18/18 09:06 Dose: 100 mg - Labs Labs: 04/18/18 05:30 04/18/18 05:30 - Constitutional Appears: Chronically Ill - Head Exam Head Exam: NORMAL INSPECTION - Eye Exam Eye Exam: PERRL - ENT Exam ENT Exam: Normal Exam - Neck Exam Neck Exam: Normal Inspection - Respiratory Exam Respiratory Exam: Clear to Ausculation Bilateral - Cardiovascular Exam Cardiovascular Exam: REGULAR RHYTHM - GI/Abdominal Exam GI & Abdominal Exam: Soft, Normal Bowel Sounds - Exam Additional comments: suprapubic catheter - Extremities Exam Extremities Exam: Normal Inspection - Back Exam Back Exam: NORMAL INSPECTION - Neurological Exam Neurological Exam: Alert, Oriented x3 Additional comments: no focal motor/sensory deficit - Psychiatric Exam Psychiatric exam: Anxious Assessment and Plan (1) Pneumonia Status: Acute (2) HIV (human immunodeficiency virus infection) Status: Chronic (3) BPH (benign prostatic hyperplasia) Status: Chronic (4) Urinary retention Status: Chronic (5) Suprapubic catheter Status: Chronic (6) Yeast UTI Status: Acute - Assessment and Plan (Free Text) Plan: AIDS,PNA , UTI Tx as per ID , Franciaan added , Urology consult appreciated
[2018-04-19] MEDS: Clindamycin 600mg/50ml NS 600 MG/50 ML BAG IVPB SCH ×3 (00:33→16:32)
--- NOTE | 2018-04-19 02:23 | CON ---
DATE: 04/18/2018 COMPREHENSIVE UROLOGIC CONSULTATION TIME OF CONSULTATION: 3:20 p.m. BRIEF HISTORY: The patient is a 67-year-old male from [place] with a recent history of acute urinary retention, requiring Fulton catheter which was eventually changed to a suprapubic tube which was placed by Dr. Gera Duval at [facility] approximately one month ago. The patient describes a prior history of an enlarged prostate. The patient also had a prostate needle biopsy done by Dr. Duval in the office also around one month ago which was reported to the patient as negative for prostate malignancy. The patient very recently over the last few days developed a high fever of 102 and was brought to [facility] ER and was found to have a pneumonia and was admitted for treatment. The patient recently started complaining of some leakage of urine from the penis, and the suprapubic tube was draining well, and the dressing is dry and intact at this hour. The patient also says over the last day or two he sees some improvement in the leakage of urine from his penis possibly indicating improved drainage of the suprapubic tube which is now draining well. The patient's urine culture was positive for yeast. The patient denies any other surgical history. He does have a past history of COPD, pneumonia, hypertension and is HIV positive. SOCIAL HISTORY: He stopped smoking eight years ago. He does not consume any alcohol at this time. ALLERGIES: HE HAS NO KNOWN ALLERGIES TO ANY MEDICATIONS. The patient is currently being treated for his pneumonia. PHYSICAL EXAMINATION: GENERAL: The patient is a well-developed, well-nourished male. He is alert. He is oriented. HEENT: Grossly within normal limits. NECK: Supple. Thyroid nonpalpable. ABDOMEN: Soft, nondistended, nontender. No CVA tenderness and no suprapubic tenderness. Suprapubic tube is draining chau urine well. GENITALIA: He is not circumcised with a normal glanular meatus without any rashes or lesions visualized. Testes are down bilaterally, nontender without any masses. RECTAL EXAMINATION: Shows enlarged prostate, smooth, symmetrical, nontender without any nodules or indurations with an absent median sulcus. EXTREMITIES: The patient seems to have full range of motion of his upper and lower extremities. He has no leg edema or calf tenderness. LABORATORY DATA: Laboratory evaluation on 04/18/2018 shows a WBC count of 7.5, hemoglobin of 10.1, hematocrit of 29.9 and a platelet count of 344,000. His sodium was 128 which is low, potassium 3.7, chloride 94, CO2 of 24, BUN and creatinine 14 and 1 with a GFR of greater than 60. Random glucose was 81. Calcium 7.8. His liver profile on 04/17/2018 was normal. The patient is currently on lactobacillus one cap b.i.d. and clindamycin IV. He is also on fluconazole. DIAGNOSTIC IMPRESSION: 1. Urinary retention. 2. Benign prostatic hypertrophy. PLAN: Maintain the patient on suprapubic catheter drainage. His suprapubic tube should be changed within the next two weeks. This case will be discussed with Dr. Gera Duval, his urologist. The patient did want a second opinion regarding his condition. Ryan Lockett MD MTDD
[2018-04-19] MEDS: Emtricitabine-Tenofovir 200 mg-300 mg Tab PO SCH (09:47)
[2018-04-19] MEDS: Lactobacillus Acidophilus 500 MU Cap PO SCH ×2 (09:47→16:31)
[2018-04-19] MEDS: Pantoprazole 40 mg EC Tab PO SCH (09:48)
[2018-04-19] MEDS: Fluconazole IV 400mg/200ml NS 200 ML IVPB SCH (09:49)
[2018-04-19] MEDS: Nystatin 100,000 Units/ml Oral Susp 5 ml UD PO SCH ×4 (09:50→21:27)
--- NOTE | 2018-04-19 15:31 | CP.PCM.PN ---
Subjective - Date & Time of Evaluation Date of Evaluation: 04/19/18 Time of Evaluation: 16:30 - Subjective Subjective: F/U PNA No cough, no SOB Objective - Vital Signs/Intake and Output Vital Signs (last 24 hours): Temp Pulse Resp BP Pulse Ox 98 F 74 18 129/77 96 04/19/18 08:19 04/19/18 08:19 04/19/18 08:19 04/19/18 09:48 04/19/18 08:19 - Medications Medications: Current Medications Carvedilol (Coreg) 6.25 mg PO DAILY [facility] Last Admin: 04/19/18 09:48 Dose: 6.25 mg Clopidogrel Bisulfate (Plavix) 75 mg PO DAILY [facility] Last Admin: 04/19/18 09:48 Dose: 75 mg Emtricitabine/Tenofovir (Truvada 200 Mg-300 Mg) 1 tab PO 1000 [facility] Last Admin: 04/19/18 09:47 Dose: 1 tab Clindamycin Phosphate (Cleocin In Normal Saline) 600 mg in 50 mls @ 50 mls/hr IVPB Q8 [facility] PRN Reason: Protocol Last Admin: 04/19/18 09:49 Dose: 50 mls/hr Fluconazole (Diflucan Iv 400mg/200ml Ns) 200 mls @ 100 mls/hr IVPB DAILY [facility] PRN Reason: Protocol Last Admin: 04/19/18 09:49 Dose: 100 mls/hr Lactobacillus Acidophilus (Bacid Acidophilus) 1 cap PO BID [facility] Last Admin: 04/19/18 09:47 Dose: 1 cap Nystatin (Nystatin Oral Susp) 5 ml PO QID [facility] Last Admin: 04/19/18 12:42 Dose: 5 ml Pantoprazole Sodium (Protonix Ec Tab) 40 mg PO DAILY [facility] Last Admin: 04/19/18 09:48 Dose: 40 mg Raltegravir (Isentress) 400 mg PO 1000,1800 [facility] Last Admin: 04/19/18 09:47 Dose: 400 mg Sertraline HCl (Zoloft) 100 mg PO DAILY [facility] Last Admin: 04/19/18 09:48 Dose: 100 mg - Labs Labs: 04/18/18 05:30 04/18/18 05:30 - Constitutional Appears: Chronically Ill - Head Exam Head Exam: NORMAL INSPECTION - Eye Exam Eye Exam: PERRL - ENT Exam ENT Exam: Normal Exam - Neck Exam Neck Exam: Normal Inspection - Respiratory Exam Respiratory Exam: Clear to Ausculation Bilateral - Cardiovascular Exam Cardiovascular Exam: REGULAR RHYTHM - GI/Abdominal Exam GI & Abdominal Exam: Soft, Normal Bowel Sounds - Exam Additional comments: Suprapubic Catheter - Extremities Exam Extremities Exam: Normal Inspection - Back Exam Back Exam: NORMAL INSPECTION - Neurological Exam Neurological Exam: Alert, Oriented x3 Additional comments: No focal motor/sensory deficit. - Psychiatric Exam Psychiatric exam: Anxious - Skin Skin Exam: Warm Assessment and Plan (1) Pneumonia Status: Acute (2) HIV (human immunodeficiency virus infection) Status: Chronic (3) BPH (benign prostatic hyperplasia) Status: Chronic (4) Urinary retention Status: Chronic (5) Suprapubic catheter Status: Chronic (6) Yeast UTI Status: Acute - Assessment and Plan (Free Text) Plan: F/U CT Chest in AM , Atb cooverage and AIDS Tx as per ID, Bronchoscopy discussed with ID
--- NOTE | 2018-04-19 16:07 | CP.PCM.PN ---
Subjective - Date & Time of Evaluation Date of Evaluation: 04/19/18 Time of Evaluation: 16:07 - Subjective Subjective: I D NOTE AFEBRILE, SERUM CRYPTANTIGEN IS NEGATIVE CD4 is 184(% is 12%) possible bronchoscopy is planned no change in antibiotics or ARVs Objective - Vital Signs/Intake and Output Vital Signs (last 24 hours): Temp Pulse Resp BP Pulse Ox 98 F 74 18 129/77 96 04/19/18 08:19 04/19/18 08:19 04/19/18 08:19 04/19/18 09:48 04/19/18 08:19 - Medications Medications: Current Medications Carvedilol (Coreg) 6.25 mg PO DAILY [facility] [place] Last Admin: 04/19/18 09:48 Dose: 6.25 mg Clopidogrel Bisulfate (Plavix) 75 mg PO DAILY [facility] [place] Last Admin: 04/19/18 09:48 Dose: 75 mg Emtricitabine/Tenofovir (Truvada 200 Mg-300 Mg) 1 tab PO 1000 [facility] Last Admin: 04/19/18 09:47 Dose: 1 tab Clindamycin Phosphate (Cleocin In Normal Saline) 600 mg in 50 mls @ 50 mls/hr IVPB Q8 [facility] PRN Reason: Protocol Last Admin: 04/19/18 09:49 Dose: 50 mls/hr Fluconazole (Diflucan Iv 400mg/200ml Ns) 200 mls @ 100 mls/hr IVPB DAILY [facility] PRN Reason: Protocol Last Admin: 04/19/18 09:49 Dose: 100 mls/hr Lactobacillus Acidophilus (Bacid Acidophilus) 1 cap PO BID [facility] [place] Last Admin: 04/19/18 09:47 Dose: 1 cap Nystatin (Nystatin Oral Susp) 5 ml PO QID [facility] Last Admin: 04/19/18 12:42 Dose: 5 ml Pantoprazole Sodium (Protonix Ec Tab) 40 mg PO DAILY [facility] [place] Last Admin: 04/19/18 09:48 Dose: 40 mg Raltegravir (Isentress) 400 mg PO 1000,1800 [facility] Last Admin: 04/19/18 09:47 Dose: 400 mg Sertraline HCl (Zoloft) 100 mg PO DAILY [facility] Last Admin: 04/19/18 09:48 Dose: 100 mg - Labs Labs: 04/18/18 05:30 04/18/18 05:30
[2018-04-20] MEDS: Clindamycin 600mg/50ml NS 600 MG/50 ML BAG IVPB SCH ×2 (00:31→09:34)
[2018-04-20] MEDS: Lactobacillus Acidophilus 500 MU Cap PO SCH ×2 (09:34→17:06)
[2018-04-20] MEDS: Nystatin 100,000 Units/ml Oral Susp 5 ml UD PO SCH ×4 (09:35→21:29)
[2018-04-20] MEDS: Pantoprazole 40 mg EC Tab PO SCH (09:35)
[2018-04-20] MEDS: Emtricitabine-Tenofovir 200 mg-300 mg Tab PO SCH (09:36)
[2018-04-20] MEDS: Fluconazole IV 400mg/200ml NS 200 ML IVPB SCH (11:01)
--- NOTE | 2018-04-20 12:58 | CT ---
PROCEDURE: CT Chest without contrast HISTORY: PNA , HIV COMPARISON: None. TECHNIQUE: Contiguous axial images were obtained through the chest without intravenous contrast enhancement. Sagittal and coronal reconstructions were performed. Radiation dose (DLP): 235.05 mGy-cm. This CT exam was performed using one or more of the following dose reduction techniques: Automated exposure control, adjustment of the mA and/or kV according to patient size, and/or use of iterative reconstruction technique. FINDINGS: LUNGS: Bilateral scattered ill-defined opacities bilaterally with vaguely nodular components. This is unchanged in appearance compared to in the prior examination. Minimal centrilobular pulmonary emphysema noted. There is a mass -like opacity, pleural-based, in the lingular segment of the left upper lobe, seen on series 3, image 65. This measures approximately 1.6 x 2.9 cm and is unchanged from the prior examination. This is associated with bandlike opacity, possibly chronic scarring. There is thick bandlike opacity the which also terminates along the major fissure in a pleural-based nodular opacity on series 3, image 79. This measures 1.7 x 2.7 cm. Again, this is unchanged from prior examination. Probable focal small airways disease seen in the right middle lobe, anterior segment right upper lobe, lingular segment left upper lobe. This is unchanged. There is a nonspecific finding. There is a calcified granuloma in left lower lobe, unchanged. . MEDIASTINUM: Unremarkable thoracic aorta. No aneurysm. Normal heart size. Coronary arterial calcification. Main pulmonary artery unremarkable. No vascular congestion. No lymphadenopathy. PLEURA: Very small bilateral pleural effusion. No pneumothorax. BONES: No fracture. No destructive lesion. UPPER ABDOMEN: Grossly unremarkable. OTHER FINDINGS: None. IMPRESSION: Stable appearance of scattered bilateral ill-defined vaguely nodular opacities compared to 04/08. There is band like opacity in the left lower lobe and lingula possibly representing fibrous scar. There are masslike areas associated with this opacity, as described, without interval change since 04/15/2018. Because of these mass -like regions, followup is advised with short interval CT to assess for the possibility of a pulmonary neoplasm. Small bilateral pleural effusion. No acute infiltrate. Nonspecific small airways disease, multifocal, as described.
[2018-04-20 13:25] LABS: BLOOD UREA NITROGEN 17 mg/dl (9-20); GFR AFRICAN-AMERICAN > 60; GFR NON-AFRICAN AMERICAN > 60
[2018-04-20 13:36] LABS: HEMOGLOBIN 10.9 g/dL (12.0-18.0); MEAN CELL VOLUME 92.7 fl (80.0-94.0); MEAN CORPUSCULAR HEMOGLOBIN 31.1 pg (27.0-31.0); MEAN CORPUSCULAR HGB CONC 33.6 g/dL (33.0-37.0); RBC 3.51 Mil/uL (4.40-5.90); RED CELL DISTRIBUTION WIDTH 17.6 % (11.5-14.5); WHITE BLOOD COUNT 7.6 K/uL (4.8-10.8)
[2018-04-20] MEDS ORDERED: Potassium Chloride 20 mEq ER Tab PO ONE (15:00)
[2018-04-20] MEDS: Tmp-Smz 800 mg-160 mg DS Tab PO SCH ×2 (17:07→21:29)
[2018-04-20] MEDS: Piperacillin/Tazobact 3.375 GM in Sodium Chloride 0.9% 100 ML IVPB SCH ×2 (17:07→21:29)
[2018-04-20] MEDS: Clindamycin 600mg/50ml D5W 600 MG/50 ML VIAL IVPB SCH (17:07)
--- NOTE | 2018-04-20 18:13 | CP.PCM.PN ---
Subjective - Date & Time of Evaluation Date of Evaluation: 04/20/18 Time of Evaluation: 18:09 - Subjective Subjective: i I D NOTE BLOOD CULTURE POSITIVE FOR RIVER AURIS (04/15/18) FOLLOWUP CULTURES(04/17/18) NEGATIVE SO FAR,REPEAT CULTURE DONE TODAY, URINE CULTURE SHOWING YEAST( NO ID YET) SHOULD CONSIDER CHANGING SUPRAPUBIC CATHETER PENDING F/U CULTURES CT OF CHEST REVIEWED WILL EVENTUALLY NEED BRONCHOSCOPY C ID PRECAUTIONS DISCUSSED c Objective - Vital Signs/Intake and Output Vital Signs (last 24 hours): Temp Pulse Resp BP Pulse Ox 98.7 F 86 20 115/73 95 04/20/18 17:07 04/20/18 17:07 04/20/18 17:07 04/20/18 17:07 04/20/18 17:07 - Medications Medications: Current Medications Carvedilol (Coreg) 6.25 mg PO DAILY [facility] Last Admin: 04/20/18 09:35 Dose: 6.25 mg Emtricitabine/Tenofovir (Truvada 200 Mg-300 Mg) 1 tab PO 1000 [facility] Last Admin: 04/20/18 09:36 Dose: 1 tab Fluconazole (Diflucan Iv 400mg/200ml Ns) 200 mls @ 100 mls/hr IVPB DAILY [facility] PRN Reason: Protocol Last Admin: 04/20/18 11:01 Dose: 100 mls/hr Clindamycin Phosphate (Cleocin) 600 mg in 50 mls @ 50 mls/hr IVPB Q8 [facility] PRN Reason: Protocol Last Admin: 04/20/18 17:07 Dose: 50 mls/hr Piperacillin Sod/Tazobactam (Sod 3.375 gm/ Sodium Chloride) 100 mls @ 100 mls/ hr IVPB Q6 [facility] PRN Reason: Protocol Last Admin: 04/20/18 17:07 Dose: 100 mls/hr Lactobacillus Acidophilus (Bacid Acidophilus) 1 cap PO BID [facility] Last Admin: 04/20/18 17:06 Dose: 1 cap Nystatin (Nystatin Oral Susp) 5 ml PO QID [facility] Last Admin: 04/20/18 17:07 Dose: 5 ml Pantoprazole Sodium (Protonix Ec Tab) 40 mg PO DAILY [facility] Last Admin: 04/20/18 09:35 Dose: 40 mg Raltegravir (Isentress) 400 mg PO 1000,1800 [facility] Last Admin: 04/20/18 17:07 Dose: 400 mg Sertraline HCl (Zoloft) 100 mg PO DAILY [facility] Last Admin: 04/20/18 09:36 Dose: 100 mg Trimethoprim/Sulfamethoxazole (Bactrim Ds Tab) 1 tab PO Q12 [facility] PRN Reason: Protocol Last Admin: 04/20/18 17:07 Dose: 1 tab - Labs Labs: 04/20/18 13:05 04/20/18 13:05
--- NOTE | 2018-04-20 20:12 | CP.PCM.PN ---
Subjective - Date & Time of Evaluation Date of Evaluation: 04/20/18 Time of Evaluation: 12:30 - Subjective Subjective: F/U PNA No cough, no SOB, no RODRIGUEZ Objective - Vital Signs/Intake and Output Vital Signs (last 24 hours): Temp Pulse Resp BP Pulse Ox 98.7 F 86 20 115/73 95 04/20/18 17:07 04/20/18 17:07 04/20/18 17:07 04/20/18 17:07 04/20/18 17:07 - Medications Medications: Current Medications Carvedilol (Coreg) 6.25 mg PO DAILY [facility] Last Admin: 04/20/18 09:35 Dose: 6.25 mg Emtricitabine/Tenofovir (Truvada 200 Mg-300 Mg) 1 tab PO 1000 [facility] Last Admin: 04/20/18 09:36 Dose: 1 tab Fluconazole (Diflucan Iv 400mg/200ml Ns) 200 mls @ 100 mls/hr IVPB DAILY [facility] PRN Reason: Protocol Last Admin: 04/20/18 11:01 Dose: 100 mls/hr Clindamycin Phosphate (Cleocin) 600 mg in 50 mls @ 50 mls/hr IVPB Q8 [facility] PRN Reason: Protocol Last Admin: 04/20/18 17:07 Dose: 50 mls/hr Piperacillin Sod/Tazobactam (Sod 3.375 gm/ Sodium Chloride) 100 mls @ 100 mls/ hr IVPB Q6 [facility] PRN Reason: Protocol Last Admin: 04/20/18 17:07 Dose: 100 mls/hr Lactobacillus Acidophilus (Bacid Acidophilus) 1 cap PO BID [facility] Last Admin: 04/20/18 17:06 Dose: 1 cap Nystatin (Nystatin Oral Susp) 5 ml PO QID [facility] Last Admin: 04/20/18 17:07 Dose: 5 ml Pantoprazole Sodium (Protonix Ec Tab) 40 mg PO DAILY [facility] Last Admin: 04/20/18 09:35 Dose: 40 mg Raltegravir (Isentress) 400 mg PO 1000,1800 [facility] Last Admin: 04/20/18 17:07 Dose: 400 mg Sertraline HCl (Zoloft) 100 mg PO DAILY [facility] Last Admin: 04/20/18 09:36 Dose: 100 mg Trimethoprim/Sulfamethoxazole (Bactrim Ds Tab) 1 tab PO Q12 [facility] PRN Reason: Protocol Last Admin: 04/20/18 17:07 Dose: 1 tab - Labs Labs: 04/20/18 13:05 04/20/18 13:05 - Constitutional Appears: Chronically Ill - Head Exam Head Exam: NORMAL INSPECTION - Eye Exam Eye Exam: PERRL - ENT Exam ENT Exam: Normal Exam - Neck Exam Neck Exam: Normal Inspection - Respiratory Exam Respiratory Exam: Clear to Ausculation Bilateral - Cardiovascular Exam Cardiovascular Exam: REGULAR RHYTHM - GI/Abdominal Exam GI & Abdominal Exam: Soft, Normal Bowel Sounds - Extremities Exam Extremities Exam: Normal Inspection - Back Exam Back Exam: NORMAL INSPECTION - Neurological Exam Neurological Exam: Alert, Oriented x3 Additional comments: No focal motor/sensory deficit. - Psychiatric Exam Psychiatric exam: Anxious - Skin Skin Exam: Warm Assessment and Plan (1) Pneumonia Status: Acute (2) HIV (human immunodeficiency virus infection) Status: Chronic - Assessment and Plan (Free Text) Plan: CT Chest:B/L infiltrate masses as described by CT, to be off Plavix, to have Bronchoscopy.
[2018-04-21] MEDS: Clindamycin 600mg/50ml D5W 600 MG/50 ML VIAL IVPB SCH ×3 (00:20→17:02)
[2018-04-21] MEDS: Piperacillin/Tazobact 3.375 GM in Sodium Chloride 0.9% 100 ML IVPB SCH ×4 (04:55→22:31)
[2018-04-21 06:32] LABS: HEMOGLOBIN 10.7 g/dL (12.0-18.0); MEAN CORPUSCULAR HEMOGLOBIN 30.9 pg (27.0-31.0); MEAN CORPUSCULAR HGB CONC 33.2 g/dL (33.0-37.0); RBC 3.45 Mil/uL (4.40-5.90); RED CELL DISTRIBUTION WIDTH 17.2 % (11.5-14.5); WHITE BLOOD COUNT 8.1 K/uL (4.8-10.8)
[2018-04-21 06:37] LABS: INR 1.1 (0.9-1.2); PROTHROMBIN TIME 11.8 Seconds (9.8-13.1)
[2018-04-21 07:12] LABS: ALB/GLOB RATIO 0.7 (1.0-2.1); ALBUMIN 2.8 g/dL (3.5-5.0); ALT/SGPT 57 U/L (21-72); AST/SGOT 42 U/L (17-59); BLOOD UREA NITROGEN 18 mg/dl (9-20); CALCIUM 8.1 mg/dL (8.4-10.2); GFR AFRICAN-AMERICAN > 60; GFR NON-AFRICAN AMERICAN > 60
[2018-04-21] MEDS: Tmp-Smz 800 mg-160 mg DS Tab PO SCH ×2 (09:50→22:30)
[2018-04-21] MEDS: Lactobacillus Acidophilus 500 MU Cap PO SCH ×2 (09:50→17:02)
[2018-04-21] MEDS: Pantoprazole 40 mg EC Tab PO SCH (09:52)
[2018-04-21] MEDS: Nystatin 100,000 Units/ml Oral Susp 5 ml UD PO SCH ×4 (09:52→22:30)
[2018-04-21] MEDS: Emtricitabine-Tenofovir 200 mg-300 mg Tab PO SCH (09:52)
[2018-04-21] MEDS: Fluconazole IV 400mg/200ml NS 200 ML IVPB SCH (11:34)
--- NOTE | 2018-04-21 14:22 | CP.PCM.PN ---
Subjective - Date & Time of Evaluation Date of Evaluation: 04/21/18 Time of Evaluation: 12:45 - Subjective Subjective: F/U PNA No cough, no SOB. Objective - Vital Signs/Intake and Output Vital Signs (last 24 hours): Temp Pulse Resp BP Pulse Ox 97.2 F L 80 20 129/92 H 98 04/21/18 09:00 04/21/18 09:51 04/21/18 09:00 04/21/18 09:51 04/21/18 09:00 - Medications Medications: Current Medications Carvedilol (Coreg) 6.25 mg PO DAILY [facility] Last Admin: 04/21/18 09:51 Dose: 6.25 mg Emtricitabine/Tenofovir (Truvada 200 Mg-300 Mg) 1 tab PO 1000 [facility] Last Admin: 04/21/18 09:52 Dose: 1 tab Fluconazole (Diflucan Iv 400mg/200ml Ns) 200 mls @ 100 mls/hr IVPB DAILY [facility] PRN Reason: Protocol Last Admin: 04/21/18 11:34 Dose: 100 mls/hr Clindamycin Phosphate (Cleocin) 600 mg in 50 mls @ 50 mls/hr IVPB Q8 [facility] PRN Reason: Protocol Last Admin: 04/21/18 09:51 Dose: 50 mls/hr Piperacillin Sod/Tazobactam (Sod 3.375 gm/ Sodium Chloride) 100 mls @ 100 mls/ hr IVPB Q6 [facility] PRN Reason: Protocol Last Admin: 04/21/18 11:34 Dose: 100 mls/hr Lactobacillus Acidophilus (Bacid Acidophilus) 1 cap PO BID [facility] Last Admin: 04/21/18 09:50 Dose: 1 cap Nystatin (Nystatin Oral Susp) 5 ml PO QID [facility] Last Admin: 04/21/18 13:22 Dose: 5 ml Pantoprazole Sodium (Protonix Ec Tab) 40 mg PO DAILY [facility] Last Admin: 04/21/18 09:52 Dose: 40 mg Raltegravir (Isentress) 400 mg PO 1000,1800 [facility] Last Admin: 04/21/18 09:51 Dose: 400 mg Sertraline HCl (Zoloft) 100 mg PO DAILY [facility] Last Admin: 04/21/18 09:56 Dose: 100 mg Trimethoprim/Sulfamethoxazole (Bactrim Ds Tab) 1 tab PO Q12 [facility] PRN Reason: Protocol Last Admin: 04/21/18 09:50 Dose: 1 tab - Labs Labs: 04/21/18 05:35 04/21/18 05:35 PT 11.8 Seconds (9.8-13.1) 04/21/18 05:35 INR 1.1 (0.9-1.2) 04/21/18 05:35 - Constitutional Appears: Chronically Ill - Head Exam Head Exam: NORMAL INSPECTION - Eye Exam Eye Exam: PERRL - ENT Exam ENT Exam: Normal Exam - Neck Exam Neck Exam: Normal Inspection - Respiratory Exam Respiratory Exam: Clear to Ausculation Bilateral - Cardiovascular Exam Cardiovascular Exam: REGULAR RHYTHM - GI/Abdominal Exam GI & Abdominal Exam: Soft, Normal Bowel Sounds - Extremities Exam Extremities Exam: Normal Inspection - Back Exam Back Exam: NORMAL INSPECTION - Neurological Exam Neurological Exam: Alert, Awake, Oriented x3 Additional comments: No focal motor/sensory deficit. - Psychiatric Exam Psychiatric exam: Anxious - Skin Skin Exam: Warm Assessment and Plan (1) Pneumonia Status: Acute (2) HIV (human immunodeficiency virus infection) Status: Chronic - Assessment and Plan (Free Text) Plan: Blood C-S showed: Maggie Auris. U C-S: Yeast Species. ID f/u. Bronchoscopy pending, Pt off Plavix.
--- NOTE | 2018-04-22 00:38 | PN ---
DATE: 04/21/2018 FOLLOWUP NOTE SUBJECTIVE: Called to see this patient with a nonfunctioning suprapubic tube. The patient is voiding 200 to 300 mL of urine per void from his penis with no pain. Attempts to irrigate the existing 3-way 24-Thai suprapubic tube met with some resistance and did not irrigate well. This suprapubic tube was then removed after the area was prepped and replaced with a #24-Thai regular Fulton catheter, which has a slightly wider lumen. This was inserted into the bladder, and the balloon was inflated to 10 mL. The catheter immediately drained chau urine well. PHYSICAL EXAMINATION: GENERAL: The patient was in no acute distress prior to the procedure and post procedure. ABDOMEN: Flat, soft, not distended or tender. Pre and post change of the suprapubic catheter. LABORATORY DATA: His laboratory evaluation on 04/21/2018 showed a WBC count of 8.1, hemoglobin of 10.7, and hematocrit of 32.1. Platelet count was 371,000. His PT and INR were 11.8 and 1.1 respectively. His chem profile showed a sodium of 134, potassium 4.3, chloride 102, CO2 of 26, BUN and creatinine of 18 and 1.1 respectively with a GFR greater than 60. Random glucose was 86. Calcium 8.1. Otherwise a normal comprehensive metabolic profile. DIAGNOSTIC IMPRESSION: For this patient is acute urinary retention. The patient seems to void at least 200 to 300 mL of chau urine through the penis. We will discuss this case with Dr. Gera Duval again regarding plugging the suprapubic tube at a later date for a voiding trial. Ryan Lockett MD [id number]
[2018-04-22] MEDS: Clindamycin 600mg/50ml D5W 600 MG/50 ML VIAL IVPB SCH ×3 (01:41→17:47)
[2018-04-22] MEDS: Piperacillin/Tazobact 3.375 GM in Sodium Chloride 0.9% 100 ML IVPB SCH ×4 (04:50→22:50)
[2018-04-22] MEDS: Pantoprazole 40 mg EC Tab PO SCH (11:03)
[2018-04-22] MEDS: Nystatin 100,000 Units/ml Oral Susp 5 ml UD PO SCH ×4 (11:03→22:49)
[2018-04-22] MEDS: Tmp-Smz 800 mg-160 mg DS Tab PO SCH (11:04)
[2018-04-22] MEDS: Emtricitabine-Tenofovir 200 mg-300 mg Tab PO SCH (11:05)
[2018-04-22] MEDS: Fluconazole IV 400mg/200ml NS 200 ML IVPB SCH (11:06)
[2018-04-22] MEDS: Lactobacillus Acidophilus 500 MU Cap PO SCH ×2 (11:24→17:34)
--- NOTE | 2018-04-22 14:53 | CP.PCM.PN ---
Subjective - Date & Time of Evaluation Date of Evaluation: 04/22/18 Time of Evaluation: 11:20 - Subjective Subjective: F/U PNA no AD , no cough, no SOB , no Chest congestion Objective - Vital Signs/Intake and Output Vital Signs (last 24 hours): Temp Pulse Resp BP Pulse Ox 97.8 F 75 20 146/84 97 04/22/18 08:34 04/22/18 11:04 04/22/18 08:34 04/22/18 11:04 04/22/18 08:34 Intake and Output: 04/22/18 04/22/18 06:59 18:59 Output Total 1200 Balance -1200 - Medications Medications: Current Medications Carvedilol (Coreg) 6.25 mg PO DAILY [facility] Last Admin: 04/22/18 11:04 Dose: 6.25 mg Emtricitabine/Tenofovir (Truvada 200 Mg-300 Mg) 1 tab PO 1000 [facility] Last Admin: 04/22/18 11:05 Dose: 1 tab Fluconazole (Diflucan Iv 400mg/200ml Ns) 200 mls @ 100 mls/hr IVPB DAILY [facility] PRN Reason: Protocol Last Admin: 04/22/18 11:06 Dose: 100 mls/hr Clindamycin Phosphate (Cleocin) 600 mg in 50 mls @ 50 mls/hr IVPB Q8 [facility] PRN Reason: Protocol Last Admin: 04/22/18 09:44 Dose: 50 mls/hr Piperacillin Sod/Tazobactam (Sod 3.375 gm/ Sodium Chloride) 100 mls @ 100 mls/ hr IVPB Q6 [facility] PRN Reason: Protocol Last Admin: 04/22/18 11:05 Dose: 100 mls/hr Lactobacillus Acidophilus (Bacid Acidophilus) 1 cap PO BID [facility] Last Admin: 04/22/18 11:24 Dose: 1 cap Nystatin (Nystatin Oral Susp) 5 ml PO QID [facility] Last Admin: 04/22/18 12:46 Dose: 5 ml Pantoprazole Sodium (Protonix Ec Tab) 40 mg PO DAILY [facility] Last Admin: 04/22/18 11:03 Dose: 40 mg Raltegravir (Isentress) 400 mg PO 1000,1800 [facility] Last Admin: 04/22/18 11:04 Dose: 400 mg Sertraline HCl (Zoloft) 100 mg PO DAILY [facility] Last Admin: 04/22/18 11:04 Dose: 100 mg - Labs Labs: 04/21/18 05:35 04/21/18 05:35 PT 11.8 Seconds (9.8-13.1) 04/21/18 05:35 INR 1.1 (0.9-1.2) 04/21/18 05:35 - Constitutional Appears: Chronically Ill - Head Exam Head Exam: NORMAL INSPECTION - Eye Exam Eye Exam: PERRL - ENT Exam ENT Exam: Normal Exam - Neck Exam Neck Exam: Normal Inspection - Respiratory Exam Respiratory Exam: Clear to Ausculation Bilateral - Cardiovascular Exam Cardiovascular Exam: REGULAR RHYTHM - GI/Abdominal Exam GI & Abdominal Exam: Soft, Normal Bowel Sounds - Extremities Exam Extremities Exam: Normal Inspection - Back Exam Back Exam: NORMAL INSPECTION - Neurological Exam Neurological Exam: Alert, Oriented x3 Additional comments: No focal motor/sensory deficit - Psychiatric Exam Psychiatric exam: Anxious - Skin Skin Exam: Warm Assessment and Plan (1) Pneumonia Status: Acute (2) HIV (human immunodeficiency virus infection) Status: Chronic - Assessment and Plan (Free Text) Plan: continue Clinda, Diflucan, Zosyn, off Plavix for FOB on Friday
[2018-04-23] MEDS: Clindamycin 600mg/50ml D5W 600 MG/50 ML VIAL IVPB SCH ×3 (00:46→17:43)
[2018-04-23] MEDS: Piperacillin/Tazobact 3.375 GM in Sodium Chloride 0.9% 100 ML IVPB SCH ×4 (04:24→22:03)
[2018-04-23] MEDS: Fluconazole IV 400mg/200ml NS 200 ML IVPB SCH (09:32)
[2018-04-23] MEDS: Lactobacillus Acidophilus 500 MU Cap PO SCH ×2 (09:32→17:42)
[2018-04-23] MEDS: Emtricitabine-Tenofovir 200 mg-300 mg Tab PO SCH (09:34)
[2018-04-23] MEDS: Nystatin 100,000 Units/ml Oral Susp 5 ml UD PO SCH ×4 (09:34→22:03)
[2018-04-23] MEDS: Pantoprazole 40 mg EC Tab PO SCH (09:34)
--- NOTE | 2018-04-23 17:38 | CP.PCM.PN ---
Subjective - Date & Time of Evaluation Date of Evaluation: 04/23/18 Time of Evaluation: 13:45 - Subjective Subjective: F/U PNA no AD, no SOB, no RODRIGUEZ , no cough Objective - Vital Signs/Intake and Output Vital Signs (last 24 hours): Temp Pulse Resp BP Pulse Ox 97.9 F 78 18 117/75 98 04/23/18 16:33 04/23/18 16:33 04/23/18 16:33 04/23/18 16:33 04/23/18 16:33 Intake and Output: 04/23/18 04/23/18 06:59 18:59 Output Total 600 Balance -600 - Medications Medications: Current Medications Carvedilol (Coreg) 6.25 mg PO DAILY [facility] Last Admin: 04/23/18 09:34 Dose: 6.25 mg Emtricitabine/Tenofovir (Truvada 200 Mg-300 Mg) 1 tab PO 1000 [facility] Last Admin: 04/23/18 09:34 Dose: 1 tab Fluconazole (Diflucan Iv 400mg/200ml Ns) 200 mls @ 100 mls/hr IVPB DAILY [facility] PRN Reason: Protocol Last Admin: 04/23/18 09:32 Dose: 100 mls/hr Clindamycin Phosphate (Cleocin) 600 mg in 50 mls @ 50 mls/hr IVPB Q8 [facility] PRN Reason: Protocol Last Admin: 04/23/18 09:33 Dose: 50 mls/hr Piperacillin Sod/Tazobactam (Sod 3.375 gm/ Sodium Chloride) 100 mls @ 100 mls/ hr IVPB Q6 [facility] PRN Reason: Protocol Last Admin: 04/23/18 09:32 Dose: 100 mls/hr Lactobacillus Acidophilus (Bacid Acidophilus) 1 cap PO BID [facility] Last Admin: 04/23/18 09:32 Dose: 1 cap Nystatin (Nystatin Oral Susp) 5 ml PO QID [facility] Last Admin: 04/23/18 12:44 Dose: 5 ml Pantoprazole Sodium (Protonix Ec Tab) 40 mg PO DAILY [facility] Last Admin: 04/23/18 09:34 Dose: 40 mg Raltegravir (Isentress) 400 mg PO 1000,1800 [facility] Last Admin: 04/23/18 09:34 Dose: 400 mg Sertraline HCl (Zoloft) 100 mg PO DAILY [facility] Last Admin: 04/23/18 09:34 Dose: 100 mg Trimethoprim/Sulfamethoxazole (Bactrim Ds Tab) 1 tab PO Q12 [facility] PRN Reason: Protocol - Labs Labs: 04/21/18 05:35 04/21/18 05:35 PT 11.8 Seconds (9.8-13.1) 04/21/18 05:35 INR 1.1 (0.9-1.2) 04/21/18 05:35 - Constitutional Appears: Chronically Ill - Head Exam Head Exam: NORMAL INSPECTION - Eye Exam Eye Exam: PERRL - ENT Exam ENT Exam: Normal Exam - Neck Exam Neck Exam: Normal Inspection - Respiratory Exam Respiratory Exam: Clear to Ausculation Bilateral - Cardiovascular Exam Cardiovascular Exam: REGULAR RHYTHM - GI/Abdominal Exam GI & Abdominal Exam: Soft, Normal Bowel Sounds - Exam Additional comments: suprapubic catheter - Extremities Exam Extremities Exam: Normal Inspection - Back Exam Back Exam: NORMAL INSPECTION - Neurological Exam Neurological Exam: Alert, Oriented x3 Additional comments: No focal motor/sensory deficit. - Psychiatric Exam Psychiatric exam: Anxious - Skin Skin Exam: Warm Assessment and Plan (1) Pneumonia Status: Acute (2) HIV (human immunodeficiency virus infection) Status: Chronic - Assessment and Plan (Free Text) Plan: Bactrim, Cleocin, Diflucan, Zosyn, Planning FOB Bx on Friday , Pt off Plavix
[2018-04-23] MEDS: Tmp-Smz 800 mg-160 mg DS Tab PO SCH (22:04)
--- NOTE | 2018-04-23 22:48 | PN ---
DATE: 04/23/2018 SUBJECTIVE: The patient's suprapubic tube is draining chau urine well. He does have some minimal amount of leakage from the suprapubic dressing site. Right now, he claims he is not leaking any urine from the penis at this hour. PHYSICAL EXAMINATION: ABDOMEN: Soft, nondistended, nontender. No CVA tenderness and no suprapubic tenderness. ASSESSMENT AND PLAN: Plan for this patient is just to observe the patient at this time, maintain a new suprapubic Fulton catheter, which is a 24-Congolese. The patient was advised to follow up with Dr. Gera Duval regarding any further procedures on this patient. Suprapubic tube should be changed roughly around every six weeks. Ryan Lockett MD
[2018-04-24] MEDS: Clindamycin 600mg/50ml D5W 600 MG/50 ML VIAL IVPB SCH ×2 (01:32→09:29)
[2018-04-24] MEDS: Piperacillin/Tazobact 3.375 GM in Sodium Chloride 0.9% 100 ML IVPB SCH ×2 (04:11→09:30)
[2018-04-24 06:32] LABS: BASO % 0.8 % (0.0-2.0); EOS # 0.2 K/uL (0.0-0.7); EOS % 3.8 % (0.0-4.0); HEMOGLOBIN 10.3 g/dL (12.0-18.0); LYMPH # 2.1 K/uL (1.0-4.3); LYMPH % 35.6 % (20.0-40.0); MEAN CELL VOLUME 92.8 fl (80.0-94.0); MEAN CORPUSCULAR HEMOGLOBIN 30.8 pg (27.0-31.0); MEAN CORPUSCULAR HGB CONC 33.2 g/dL (33.0-37.0); MEAN PLATELET VOLUME 7.2 fl (7.2-11.7); MONO # 0.7 K/uL (0.0-0.8); NEUT # 2.9 K/uL (1.8-7.0); NEUT % 48.8 % (50.0-75.0); NRBC % 0.1 % (0.0-0.0); RBC 3.35 Mil/uL (4.40-5.90); RED CELL DISTRIBUTION WIDTH 17.5 % (11.5-14.5)
[2018-04-24 06:38] LABS: BLOOD UREA NITROGEN 17 mg/dl (9-20); CALCIUM 8.4 mg/dL (8.4-10.2)
[2018-04-24 07:49] LABS: ALB/GLOB RATIO 0.8 (1.0-2.1); ALT/SGPT 40 U/L (21-72); AST/SGOT 36 U/L (17-59); GFR AFRICAN-AMERICAN > 60; GFR NON-AFRICAN AMERICAN 55
[2018-04-24] MEDS: Lactobacillus Acidophilus 500 MU Cap PO SCH ×2 (09:28→17:05)
[2018-04-24] MEDS: Emtricitabine-Tenofovir 200 mg-300 mg Tab PO SCH (09:28)
[2018-04-24] MEDS: Tmp-Smz 800 mg-160 mg DS Tab PO SCH ×2 (09:28→21:47)
[2018-04-24] MEDS: Nystatin 100,000 Units/ml Oral Susp 5 ml UD PO SCH ×4 (09:28→21:47)
[2018-04-24] MEDS: Fluconazole IV 400mg/200ml NS 200 ML IVPB SCH (09:29)
[2018-04-24] MEDS: Pantoprazole 40 mg EC Tab PO SCH (09:29)
--- NOTE | 2018-04-24 23:42 | CP.PCM.PN ---
Subjective - Date & Time of Evaluation Date of Evaluation: 04/24/18 Time of Evaluation: 14:30 - Subjective Subjective: F/U PNA N/C, no SOB,no RODRIGUEZ, no cough Objective - Vital Signs/Intake and Output Vital Signs (last 24 hours): Temp Pulse Resp BP Pulse Ox 98 F 82 18 112/79 100 04/24/18 16:32 04/24/18 16:32 04/24/18 16:32 04/24/18 16:32 04/24/18 16:32 Intake and Output: 04/24/18 04/25/18 18:59 06:59 Intake Total 40 Output Total 400 440 Balance -400 -400 - Medications Medications: Current Medications Carvedilol (Coreg) 6.25 mg PO DAILY [facility] Last Admin: 04/24/18 09:29 Dose: 6.25 mg Emtricitabine/Tenofovir (Truvada 200 Mg-300 Mg) 1 tab PO 1000 [facility] Last Admin: 04/24/18 09:28 Dose: 1 tab FLUCONAZOLE IN DEXTROSE (Fluconazole-Dext 200 Mg/100 Ml) 200 mg in 100 mls @ 100 mls/hr IVPB DAILY [facility] Piperacillin Sod/Tazobactam (Sod 2.25 gm/ Sodium Chloride) 100 mls @ 100 mls/ hr IVPB Q6 [facility] PRN Reason: Protocol Last Admin: 04/24/18 21:47 Dose: 100 mls/hr Lactobacillus Acidophilus (Bacid Acidophilus) 1 cap PO BID [facility] Last Admin: 04/24/18 17:05 Dose: 1 cap Nystatin (Nystatin Oral Susp) 5 ml PO QID [facility] Last Admin: 04/24/18 21:47 Dose: 5 ml Pantoprazole Sodium (Protonix Ec Tab) 40 mg PO DAILY [facility] Last Admin: 04/24/18 09:29 Dose: 40 mg Raltegravir (Isentress) 400 mg PO 1000,1800 [facility] Last Admin: 04/24/18 17:06 Dose: 400 mg Sertraline HCl (Zoloft) 100 mg PO DAILY [facility] Last Admin: 04/24/18 09:28 Dose: 100 mg Trimethoprim/Sulfamethoxazole (Bactrim Ds Tab) 1 tab PO Q12 [facility] PRN Reason: Protocol Last Admin: 04/24/18 21:47 Dose: 1 tab - Labs Labs: 04/24/18 05:45 04/24/18 05:45 PT 11.8 Seconds (9.8-13.1) 04/21/18 05:35 INR 1.1 (0.9-1.2) 04/21/18 05:35 - Constitutional Appears: Chronically Ill - Head Exam Head Exam: NORMAL INSPECTION - Eye Exam Eye Exam: PERRL - ENT Exam ENT Exam: Normal Exam - Neck Exam Neck Exam: Normal Inspection - Respiratory Exam Respiratory Exam: Clear to Ausculation Bilateral - Cardiovascular Exam Cardiovascular Exam: REGULAR RHYTHM - GI/Abdominal Exam GI & Abdominal Exam: Soft, Normal Bowel Sounds - Extremities Exam Extremities Exam: Normal Inspection - Back Exam Back Exam: NORMAL INSPECTION - Neurological Exam Neurological Exam: Alert, Oriented x3 Additional comments: No focal motor/sensory deficit - Psychiatric Exam Psychiatric exam: Anxious - Skin Skin Exam: Warm - Additional Findings Additional findings: continue Diflucan, Zosyn, Bactrim and HIV meds, Patient is off Eliquis , for FOB Bx on Friday Assessment and Plan (1) Pneumonia Status: Acute (2) HIV (human immunodeficiency virus infection) Status: Chronic
[2018-04-25 04:36] LABS: HIV-1 GENOTYPE DETECTED
[2018-04-25] MEDS: Tmp-Smz 800 mg-160 mg DS Tab PO SCH ×2 (11:36→22:00)
[2018-04-25] MEDS: Pantoprazole 40 mg EC Tab PO SCH (11:38)
[2018-04-25] MEDS: Nystatin 100,000 Units/ml Oral Susp 5 ml UD PO SCH ×4 (11:38→23:21)
[2018-04-25] MEDS: Emtricitabine-Tenofovir 200 mg-300 mg Tab PO SCH (11:39)
[2018-04-25] MEDS: FLUCONAZOLE IN DEXTROSE 200 MG/100 ML PIGGYBACK IVPB SCH (11:52)
[2018-04-25] MEDS: Lactobacillus Acidophilus 500 MU Cap PO SCH ×2 (11:52→17:33)
--- NOTE | 2018-04-25 14:39 | CP.PCM.PN ---
Subjective - Date & Time of Evaluation Date of Evaluation: 04/25/18 Time of Evaluation: 11:40 - Subjective Subjective: F/U PNA no SOB, no RODRIGUEZ, no cough Objective - Vital Signs/Intake and Output Vital Signs (last 24 hours): Temp Pulse Resp BP Pulse Ox 97.4 F L 78 20 154/87 H 100 04/25/18 08:22 04/25/18 11:36 04/25/18 08:22 04/25/18 11:36 04/25/18 08:22 Intake and Output: 04/25/18 04/25/18 06:59 18:59 Intake Total 40 Output Total 440 Balance -400 - Medications Medications: Current Medications Carvedilol (Coreg) 6.25 mg PO DAILY [facility] Last Admin: 04/25/18 11:36 Dose: 6.25 mg Emtricitabine/Tenofovir (Truvada 200 Mg-300 Mg) 1 tab PO 1000 [facility] Last Admin: 04/25/18 11:39 Dose: 1 tab FLUCONAZOLE IN DEXTROSE (Fluconazole-Dext 200 Mg/100 Ml) 200 mg in 100 mls @ 100 mls/hr IVPB DAILY [facility] Last Admin: 04/25/18 11:52 Dose: 100 mls/hr Piperacillin Sod/Tazobactam (Sod 2.25 gm/ Sodium Chloride) 100 mls @ 100 mls/ hr IVPB Q6 [facility] PRN Reason: Protocol Last Admin: 04/25/18 11:39 Dose: 100 mls/hr Lactobacillus Acidophilus (Bacid Acidophilus) 1 cap PO BID [facility] Last Admin: 04/25/18 11:52 Dose: 1 cap Nystatin (Nystatin Oral Susp) 5 ml PO QID [facility] Last Admin: 04/25/18 11:38 Dose: 5 ml Pantoprazole Sodium (Protonix Ec Tab) 40 mg PO DAILY [facility] Last Admin: 04/25/18 11:38 Dose: 40 mg Raltegravir (Isentress) 400 mg PO 1000,1800 [facility] Last Admin: 04/25/18 11:38 Dose: 400 mg Sertraline HCl (Zoloft) 100 mg PO DAILY [facility] Last Admin: 04/25/18 11:39 Dose: 100 mg Trimethoprim/Sulfamethoxazole (Bactrim Ds Tab) 1 tab PO Q12 [facility] PRN Reason: Protocol Last Admin: 04/25/18 11:36 Dose: 1 tab - Labs Labs: 04/24/18 05:45 04/24/18 05:45 PT 11.8 Seconds (9.8-13.1) 04/21/18 05:35 INR 1.1 (0.9-1.2) 04/21/18 05:35 - Constitutional Appears: Chronically Ill - Head Exam Head Exam: NORMAL INSPECTION - Eye Exam Eye Exam: PERRL - ENT Exam ENT Exam: Normal Exam - Neck Exam Neck Exam: Normal Inspection - Respiratory Exam Respiratory Exam: Clear to Ausculation Bilateral - Cardiovascular Exam Cardiovascular Exam: REGULAR RHYTHM - GI/Abdominal Exam GI & Abdominal Exam: Soft, Normal Bowel Sounds - Exam Additional comments: suprapubic catheter - Extremities Exam Extremities Exam: Normal Inspection - Back Exam Back Exam: NORMAL INSPECTION - Neurological Exam Neurological Exam: Alert, Oriented x3 Additional comments: No focal motor/sensory deficit. - Psychiatric Exam Psychiatric exam: Anxious - Skin Skin Exam: Warm Assessment and Plan (1) Pneumonia Status: Acute (2) HIV (human immunodeficiency virus infection) Status: Chronic - Assessment and Plan (Free Text) Plan: Difluca, Zosyn, Bactrim, CT Chest with contrast in am, if no improvement of PNA for FOB Bx on Friday
[2018-04-26 07:48] LABS: BASO # 0.1 K/uL (0.0-0.2); BASO % 0.9 % (0.0-2.0); EOS # 0.1 K/uL (0.0-0.7); EOS % 1.8 % (0.0-4.0); HEMOGLOBIN 10.2 g/dL (12.0-18.0); LYMPH # 2.1 K/uL (1.0-4.3); LYMPH % 30.9 % (20.0-40.0); MEAN CELL VOLUME 93.2 fl (80.0-94.0); MEAN CORPUSCULAR HEMOGLOBIN 31.1 pg (27.0-31.0); MEAN CORPUSCULAR HGB CONC 33.3 g/dL (33.0-37.0); MEAN PLATELET VOLUME 7.1 fl (7.2-11.7); MONO # 0.8 K/uL (0.0-0.8); MONO % 11.8 % (0.0-10.0); NEUT # 3.7 K/uL (1.8-7.0); NEUT % 54.6 % (50.0-75.0); RBC 3.29 Mil/uL (4.40-5.90); RED CELL DISTRIBUTION WIDTH 17.7 % (11.5-14.5); WHITE BLOOD COUNT 6.7 K/uL (4.8-10.8)
[2018-04-26 08:15] LABS: ALB/GLOB RATIO 0.8 (1.0-2.1); ALBUMIN 3.1 g/dL (3.5-5.0); ALT/SGPT 37 U/L (21-72); AST/SGOT 64 U/L (17-59); BLOOD UREA NITROGEN 18 mg/dl (9-20); CALCIUM 8.8 mg/dL (8.4-10.2); GFR AFRICAN-AMERICAN > 60; GFR NON-AFRICAN AMERICAN 55
[2018-04-26 08:18] LABS: PARTIAL THROMBOPLASTIN TIME 29.6 Seconds (25.6-37.1); PROTHROMBIN TIME 11.4 Seconds (9.8-13.1)
[2018-04-26] MEDS: Lactobacillus Acidophilus 500 MU Cap PO SCH ×2 (10:29→17:54)
[2018-04-26] MEDS: Nystatin 100,000 Units/ml Oral Susp 5 ml UD PO SCH ×3 (10:30→22:44)
[2018-04-26] MEDS: Pantoprazole 40 mg EC Tab PO SCH (10:32)
[2018-04-26] MEDS: Emtricitabine-Tenofovir 200 mg-300 mg Tab PO SCH (10:33)
--- NOTE | 2018-04-26 13:01 | CP.PCM.PN ---
Subjective - Date & Time of Evaluation Date of Evaluation: 04/26/18 Time of Evaluation: 12:55 - Subjective Subjective: I D NOTE I AM AWAY BUT HAVE NOTED MILD RENAL CHANGES HAD DISCUSSED c SHRUB PLANTER WHEN SHE CALLED ME EARLIER IN WEEK AND ADJUSTED DOSES OF DIFLUCAN AND ZOSYN TODAY GFR AND CREATININE UNCHANGED ,HAVE D/SAMM TRUVADA AND ORDERED EPZICOM(ZIAGEN/EPIVIR) PATIENT'S [id number] IS NEGATIVE RENEWED ISENTRESS Objective - Vital Signs/Intake and Output Vital Signs (last 24 hours): Temp Pulse Resp BP Pulse Ox 97.4 F L 82 20 130/80 99 04/26/18 08:17 04/26/18 10:29 04/26/18 08:17 04/26/18 10:29 04/26/18 08:17 - Medications Medications: Current Medications Abacavir Sulfate (Ziagen) 600 mg PO DAILY [facility] PRN Reason: Protocol Carvedilol (Coreg) 6.25 mg PO DAILY COUNTS [facility]CLUDE 234 BEDS AT [facility] Last Admin: 04/26/18 10:29 Dose: 6.25 mg FLUCONAZOLE IN DEXTROSE (Fluconazole-Dext 200 Mg/100 Ml) 200 mg in 100 mls @ 100 mls/hr IVPB DAILY [facility] Last Admin: 04/25/18 11:52 Dose: 100 mls/hr Piperacillin Sod/Tazobactam (Sod 2.25 gm/ Sodium Chloride) 100 mls @ 100 mls/ hr IVPB Q6 [facility] PRN Reason: Protocol Last Admin: 04/26/18 10:33 Dose: 100 mls/hr Lactobacillus Acidophilus (Bacid Acidophilus) 1 cap PO BID [facility] Last Admin: 04/26/18 10:29 Dose: 1 cap Lamivudine (Epivir) 300 mg PO DAILY [facility] PRN Reason: Protocol Nystatin (Nystatin Oral Susp) 5 ml PO QID [facility] Last Admin: 04/26/18 10:30 Dose: 5 ml Pantoprazole Sodium (Protonix Ec Tab) 40 mg PO DAILY [facility] Last Admin: 04/26/18 10:32 Dose: 40 mg Sertraline HCl (Zoloft) 100 mg PO DAILY [facility] Last Admin: 04/26/18 10:33 Dose: 100 mg Trimethoprim/Sulfamethoxazole (Bactrim Ds Tab) 1 tab PO Q12 [facility] PRN Reason: Protocol - Labs Labs: 04/26/18 05:30 04/26/18 05:30 PT 11.4 Seconds (9.8-13.1) 04/26/18 05:30 INR 1.0 (0.9-1.2) 04/26/18 05:30 APTT 29.6 Seconds (25.6-37.1) 04/26/18 05:30
[2018-04-26] MEDS ORDERED: Iohexol 300 100 ML IJ ONE (13:07)
[2018-04-26] MEDS ORDERED: Sodium Chloride 0.9% 50 ML IV ONE (13:07)
--- NOTE | 2018-04-26 14:43 | CT ---
PROCEDURE: CT Chest with contrast HISTORY: PNA , HIV COMPARISON: CT chest dated 04/20/2018. TECHNIQUE: Contiguous axial images were obtained through the chest with intravenous contrast enhancement. Sagittal and coronal reconstructions were performed. IV contrast: 90 mL Omnipaque 300 Radiation dose (DLP): 189.9 mGy-cm. This CT exam was performed using one or more of the following dose reduction techniques: Automated exposure control, adjustment of the mA and/or kV according to patient size, and/or use of iterative reconstruction technique. FINDINGS: LUNGS: Grossly stable bilateral reticulonodular opacities. Stable lingular pleural-based masslike consolidation. Left lower lobe calcified granuloma redemonstrated. MEDIASTINUM: Unremarkable thoracic aorta. No aneurysm or dissection. Normal sized heart. Main pulmonary artery unremarkable. No vascular congestion. No lymphadenopathy. PLEURA: Resolution of small effusions. No pneumothorax. BONES: No fracture. No destructive lesion. UPPER ABDOMEN: Grossly unremarkable. OTHER FINDINGS: None. IMPRESSION: Grossly stable appearance and extensive bilateral reticulonodular opacities as well as lingular pleural-based masslike consolidation. No significant interval change.
--- NOTE | 2018-04-26 14:59 | CP.PCM.PN ---
Subjective - Date & Time of Evaluation Date of Evaluation: 04/26/18 - Subjective Subjective: F/U PNA no AD, no SOB,no RODRIGUEZ, no cough Objective - Vital Signs/Intake and Output Vital Signs (last 24 hours): Temp Pulse Resp BP Pulse Ox 97.4 F L 82 20 130/80 99 04/26/18 08:17 04/26/18 10:29 04/26/18 08:17 04/26/18 10:29 04/26/18 08:17 - Medications Medications: Current Medications Abacavir Sulfate (Ziagen) 600 mg PO DAILY [facility] PRN Reason: Protocol Carvedilol (Coreg) 6.25 mg PO DAILY [facility] Last Admin: 04/26/18 10:29 Dose: 6.25 mg FLUCONAZOLE IN DEXTROSE (Fluconazole-Dext 200 Mg/100 Ml) 200 mg in 100 mls @ 100 mls/hr IVPB DAILY [facility] Last Admin: 04/25/18 11:52 Dose: 100 mls/hr Piperacillin Sod/Tazobactam (Sod 2.25 gm/ Sodium Chloride) 100 mls @ 100 mls/ hr IVPB Q6 [facility] PRN Reason: Protocol Last Admin: 04/26/18 10:33 Dose: 100 mls/hr Lactobacillus Acidophilus (Bacid Acidophilus) 1 cap PO BID [facility] Last Admin: 04/26/18 10:29 Dose: 1 cap Lamivudine (Epivir) 300 mg PO DAILY [facility] PRN Reason: Protocol Nystatin (Nystatin Oral Susp) 5 ml PO QID [facility] Last Admin: 04/26/18 10:30 Dose: 5 ml Pantoprazole Sodium (Protonix Ec Tab) 40 mg PO DAILY [facility] Last Admin: 04/26/18 10:32 Dose: 40 mg Raltegravir (Isentress) 400 mg PO BID [facility] PRN Reason: Protocol Sertraline HCl (Zoloft) 100 mg PO DAILY [facility] Last Admin: 04/26/18 10:33 Dose: 100 mg Trimethoprim/Sulfamethoxazole (Bactrim Ds Tab) 1 tab PO Q12 [facility] PRN Reason: Protocol - Labs Labs: 04/26/18 05:30 04/26/18 05:30 PT 11.4 Seconds (9.8-13.1) 04/26/18 05:30 INR 1.0 (0.9-1.2) 04/26/18 05:30 APTT 29.6 Seconds (25.6-37.1) 04/26/18 05:30 - Constitutional Appears: Chronically Ill - Head Exam Head Exam: NORMAL INSPECTION - Eye Exam Eye Exam: PERRL - ENT Exam ENT Exam: Normal Exam - Neck Exam Neck Exam: Normal Inspection - Respiratory Exam Respiratory Exam: Clear to Ausculation Bilateral - Cardiovascular Exam Cardiovascular Exam: REGULAR RHYTHM - GI/Abdominal Exam GI & Abdominal Exam: Soft, Normal Bowel Sounds - Exam Additional comments: Suprapubic catheter - Extremities Exam Extremities Exam: Normal Inspection - Back Exam Back Exam: NORMAL INSPECTION - Neurological Exam Neurological Exam: Alert, Oriented x3 Additional comments: No focal motor/sensory deficit. - Psychiatric Exam Psychiatric exam: Anxious - Skin Skin Exam: Warm Assessment and Plan (1) Pneumonia Status: Acute (2) HIV (human immunodeficiency virus infection) Status: Chronic - Assessment and Plan (Free Text) Plan: CT Chest 7-8 , no change from CT Chest 7-8 , extensive B/L reticulonodular opacities, Lingular Pleural base masslike consolidation, Patient is off Eliquis, f/u FOB- Bx
[2018-04-26] MEDS: FLUCONAZOLE IN DEXTROSE 200 MG/100 ML PIGGYBACK IVPB SCH (17:50)
[2018-04-26] MEDS: Tmp-Smz 800 mg-160 mg DS Tab PO SCH ×2 (17:54→22:53)
[2018-04-27 07:06] LABS: ALB/GLOB RATIO 0.8 (1.0-2.1); ALBUMIN 3.3 g/dL (3.5-5.0); ALT/SGPT 40 U/L (21-72); AST/SGOT 34 U/L (17-59); BLOOD UREA NITROGEN 16 mg/dl (9-20); GFR AFRICAN-AMERICAN > 60; GFR NON-AFRICAN AMERICAN 55
[2018-04-27] MEDS: Lactobacillus Acidophilus 500 MU Cap PO SCH ×3 (09:58→16:32)
[2018-04-27] MEDS: Tmp-Smz 800 mg-160 mg DS Tab PO SCH ×2 (09:59→21:24)
[2018-04-27] MEDS: FLUCONAZOLE IN DEXTROSE 200 MG/100 ML PIGGYBACK IVPB SCH (09:59)
[2018-04-27] MEDS: Pantoprazole 40 mg EC Tab PO SCH (10:00)
[2018-04-27] MEDS: Nystatin 100,000 Units/ml Oral Susp 5 ml UD PO SCH ×5 (10:00→21:24)
[2018-04-27] MEDS ORDERED: Lidocaine 2% Jelly (5 ml) TOP ONE (12:17)
[2018-04-27] MEDS ORDERED: EPINEPHrine 1 mg/ml (1:1000) Inj ONE (12:18)
[2018-04-27] MEDS ORDERED: Lidocaine 2% PF (10 ml) Amp ONE (12:18)
--- NOTE | 2018-04-27 12:36 | CP.PCM.PN ---
Subjective - Date & Time of Evaluation Date of Evaluation: 04/27/18 Time of Evaluation: 12:00 - Subjective Subjective: F/U PNA No cough , no SOB , no RODRIGUEZ Objective - Vital Signs/Intake and Output Vital Signs (last 24 hours): Temp Pulse Resp BP Pulse Ox 98.4 F 73 20 136/88 100 04/27/18 08:00 04/27/18 09:59 04/27/18 08:00 04/27/18 09:59 04/27/18 08:00 Intake and Output: 04/27/18 04/27/18 06:59 18:59 Intake Total 500 Output Total 1200 Balance -700 - Medications Medications: Current Medications Abacavir Sulfate (Ziagen) 600 mg PO DAILY [facility] PRN Reason: Protocol Last Admin: 04/27/18 10:00 Dose: 600 mg Carvedilol (Coreg) 6.25 mg PO DAILY [facility] Last Admin: 04/27/18 09:59 Dose: 6.25 mg FLUCONAZOLE IN DEXTROSE (Fluconazole-Dext 200 Mg/100 Ml) 200 mg in 100 mls @ 100 mls/hr IVPB DAILY [facility] Last Admin: 04/27/18 09:59 Dose: 100 mls/hr Piperacillin Sod/Tazobactam (Sod 2.25 gm/ Sodium Chloride) 100 mls @ 100 mls/ hr IVPB Q6 [facility] PRN Reason: Protocol Last Admin: 04/27/18 10:00 Dose: 100 mls/hr Lactobacillus Acidophilus (Bacid Acidophilus) 1 cap PO BID [facility] Last Admin: 04/27/18 10:27 Dose: Not Given Lamivudine (Epivir) 300 mg PO DAILY [facility] PRN Reason: Protocol Last Admin: 04/27/18 09:59 Dose: 300 mg Nystatin (Nystatin Oral Susp) 5 ml PO QID [facility] Last Admin: 04/27/18 10:27 Dose: Not Given Pantoprazole Sodium (Protonix Ec Tab) 40 mg PO DAILY [facility] Last Admin: 04/27/18 10:00 Dose: 40 mg Raltegravir (Isentress) 400 mg PO BID [facility] PRN Reason: Protocol Last Admin: 04/27/18 10:00 Dose: 400 mg Sertraline HCl (Zoloft) 100 mg PO DAILY [facility] Last Admin: 04/27/18 10:00 Dose: 100 mg Trimethoprim/Sulfamethoxazole (Bactrim Ds Tab) 1 tab PO Q12 [facility] PRN Reason: Protocol Last Admin: 04/27/18 09:59 Dose: 1 tab - Labs Labs: 04/26/18 05:30 04/27/18 05:40 PT 11.4 Seconds (9.8-13.1) 04/26/18 05:30 INR 1.0 (0.9-1.2) 04/26/18 05:30 APTT 29.6 Seconds (25.6-37.1) 04/26/18 05:30 - Constitutional Appears: Chronically Ill - Head Exam Head Exam: NORMAL INSPECTION - Eye Exam Eye Exam: PERRL - ENT Exam ENT Exam: Normal Exam - Neck Exam Neck Exam: Normal Inspection - Respiratory Exam Respiratory Exam: Clear to Ausculation Bilateral - Cardiovascular Exam Cardiovascular Exam: REGULAR RHYTHM - GI/Abdominal Exam GI & Abdominal Exam: Soft, Normal Bowel Sounds - Exam Additional comments: suprapubic catheter - Extremities Exam Extremities Exam: Normal Inspection - Neurological Exam Neurological Exam: Alert, CN II-XII Intact, Oriented x3. absent: Motor Sensory Deficit - Psychiatric Exam Psychiatric exam: Anxious - Skin Skin Exam: Warm Assessment and Plan (1) Pneumonia Status: Acute (2) HIV (human immunodeficiency virus infection) Status: Chronic - Assessment and Plan (Free Text) Plan: FOB Bx today, Chest CT reviewed by IR , we both agree Lingular infiltrate appears infectious , not neoplasm, continue current treatment
[2018-04-27] MEDS ORDERED: Lidocaine 2% Jelly (30 ml) ONE (13:07)
[2018-04-27] MEDS ORDERED: Lactated Ringer's 500 ML IV ONE (13:20)
[2018-04-27] MEDS ORDERED: Etomidate 20 mg/10ml Inj IV ONE (13:22)
[2018-04-27] MEDS ORDERED: Propofol 10 mg/ml Inj (20 ML) ONE (13:24)
[2018-04-27] MEDS ORDERED: Succinylcholine 200 mg/10 ml Inj IV ONE (13:31)
--- NOTE | 2018-04-27 15:07 | RAD ---
HISTORY: S/P Bronchoscopy COMPARISON: Chest CT from 04/26/2018. 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 Patchy opacities in the right lung also noted. PLEURA: No significant pleural effusion identified, no pneumothorax apparent.Biapical pleural parenchymal thickening noted. CARDIOVASCULAR: Normal. OSSEOUS STRUCTURES: The osseous structures demonstrate degenerative changes. VISUALIZED UPPER ABDOMEN: Upper abdomen is suboptimally evaluated. OTHER FINDINGS: None. IMPRESSION: Findings as above.
[2018-04-27] MEDS ORDERED: Lactated Ringer's 500 ML IV SCH (15:15)
--- NOTE | 2018-04-27 16:24 | RAD ---
PROCEDURE: Intraoperative Fluoroscopy. HISTORY: BRONCHOSCOPY (ZUNILDA RLL) FINDINGS: Fluoroscopic assistance was provided for bronchoscopy. Please refer to the operative report from [facility]. Total fluoroscopic time (continuous mode) utilized during the procedure (seconds) 350.2. Total exam DLP: 25.49 (mGy) Total exam DLP: (mGy)
--- NOTE | 2018-04-27 17:44 | CP.PCM.PN ---
Subjective - Date & Time of Evaluation Date of Evaluation: 04/27/18 Time of Evaluation: 17:38 - Subjective Subjective: I D NOTE GENOTYPING SHOWS NO SIGNIFICANT RESISTANCE. EPZICOM/ISENTRESS SHOULD BE FINE, OUTPATIENTMAY SWITCH TO TIVICAY OR TRIUMEQ OR SINGLE DOSE ISENTRESS AWAIT RESULTS FROM BRONCHOSCOPY WILL REPEAT BLOOD CULTURE URINE CULTURE POST SUPRAPUBIC CATHETER CHANGE IS NEGATIVE Objective - Vital Signs/Intake and Output Vital Signs (last 24 hours): Temp Pulse Resp BP Pulse Ox 97.6 F 80 20 125/84 98 04/27/18 17:00 04/27/18 17:00 04/27/18 17:00 04/27/18 17:00 04/27/18 17:00 Intake and Output: 04/27/18 04/27/18 06:59 18:59 Intake Total 500 500 Output Total 1200 200 Balance -700 300 - Medications Medications: Current Medications Abacavir Sulfate (Ziagen) 600 mg PO DAILY [facility] PRN Reason: Protocol Last Admin: 04/27/18 10:00 Dose: 600 mg Carvedilol (Coreg) 6.25 mg PO DAILY [facility] Last Admin: 04/27/18 09:59 Dose: 6.25 mg FLUCONAZOLE IN DEXTROSE (Fluconazole-Dext 200 Mg/100 Ml) 200 mg in 100 mls @ 100 mls/hr IVPB DAILY [facility] Last Admin: 04/27/18 09:59 Dose: 100 mls/hr Piperacillin Sod/Tazobactam (Sod 2.25 gm/ Sodium Chloride) 100 mls @ 100 mls/ hr IVPB Q6 [facility] PRN Reason: Protocol Last Admin: 04/27/18 16:33 Dose: 100 mls/hr Lactated Ringer's (Lactated Ringer's 500ml) 500 mls @ 100 mls/hr IV .Q5H [facility] Lactobacillus Acidophilus (Bacid Acidophilus) 1 cap PO BID [facility] Last Admin: 04/27/18 16:32 Dose: Not Given Lamivudine (Epivir) 300 mg PO DAILY [facility] PRN Reason: Protocol Last Admin: 04/27/18 09:59 Dose: 300 mg Nystatin (Nystatin Oral Susp) 5 ml PO QID [facility] Last Admin: 04/27/18 17:02 Dose: Not Given Pantoprazole Sodium (Protonix Ec Tab) 40 mg PO DAILY [facility] Last Admin: 04/27/18 10:00 Dose: 40 mg Raltegravir (Isentress) 400 mg PO BID [facility] PRN Reason: Protocol Last Admin: 04/27/18 16:32 Dose: Not Given Sertraline HCl (Zoloft) 100 mg PO DAILY [facility] Last Admin: 04/27/18 10:00 Dose: 100 mg Trimethoprim/Sulfamethoxazole (Bactrim Ds Tab) 1 tab PO Q12 [facility] PRN Reason: Protocol Last Admin: 04/27/18 09:59 Dose: 1 tab - Labs Labs: 04/26/18 05:30 04/27/18 05:40 PT 11.4 Seconds (9.8-13.1) 04/26/18 05:30 INR 1.0 (0.9-1.2) 04/26/18 05:30 APTT 29.6 Seconds (25.6-37.1) 04/26/18 05:30
[2018-04-27] MEDS ORDERED: Tmp-Smz 800 mg-160 mg DS Tab PO SCH (21:00)
[2018-04-28] MEDS: Lactobacillus Acidophilus 500 MU Cap PO SCH ×2 (09:39→16:29)
[2018-04-28] MEDS: FLUCONAZOLE IN DEXTROSE 200 MG/100 ML PIGGYBACK IVPB SCH (09:39)
[2018-04-28] MEDS: Tmp-Smz 800 mg-160 mg DS Tab PO SCH ×2 (09:40→21:23)
[2018-04-28] MEDS: Nystatin 100,000 Units/ml Oral Susp 5 ml UD PO SCH ×4 (09:40→21:23)
[2018-04-28] MEDS: Pantoprazole 40 mg EC Tab PO SCH (09:41)
--- NOTE | 2018-04-28 15:27 | CP.PCM.PN ---
Subjective - Date & Time of Evaluation Date of Evaluation: 04/28/18 Time of Evaluation: 11:00 - Subjective Subjective: F/U PNA, S/P Bronchoscopy NO SOB, no cough Objective - Vital Signs/Intake and Output Vital Signs (last 24 hours): Temp Pulse Resp BP Pulse Ox 98.5 F 80 19 126/82 98 04/28/18 09:00 04/28/18 09:40 04/28/18 09:00 04/28/18 09:40 04/28/18 09:00 Intake and Output: 04/28/18 04/28/18 06:59 18:59 Output Total 1400 Balance -1400 - Medications Medications: Current Medications Abacavir Sulfate (Ziagen) 600 mg PO DAILY [facility] PRN Reason: Protocol Last Admin: 04/28/18 09:41 Dose: 600 mg Carvedilol (Coreg) 6.25 mg PO DAILY [facility] Last Admin: 04/28/18 09:40 Dose: 6.25 mg FLUCONAZOLE IN DEXTROSE (Fluconazole-Dext 200 Mg/100 Ml) 200 mg in 100 mls @ 100 mls/hr IVPB DAILY [facility] Last Admin: 04/28/18 09:39 Dose: 100 mls/hr Piperacillin Sod/Tazobactam (Sod 2.25 gm/ Sodium Chloride) 100 mls @ 100 mls/ hr IVPB Q6 [facility] PRN Reason: Protocol Last Admin: 04/28/18 09:39 Dose: 100 mls/hr Lactated Ringer's (Lactated Ringer's 500ml) 500 mls @ 100 mls/hr IV .Q5H [facility] Lactobacillus Acidophilus (Bacid Acidophilus) 1 cap PO BID [facility] Last Admin: 04/28/18 09:39 Dose: 1 cap Lamivudine (Epivir) 300 mg PO DAILY [facility] PRN Reason: Protocol Last Admin: 04/28/18 09:40 Dose: 300 mg Nystatin (Nystatin Oral Susp) 5 ml PO QID [facility] Last Admin: 04/28/18 12:45 Dose: 5 ml Pantoprazole Sodium (Protonix Ec Tab) 40 mg PO DAILY [facility] Last Admin: 04/28/18 09:41 Dose: 40 mg Raltegravir (Isentress) 400 mg PO BID [facility] PRN Reason: Protocol Last Admin: 04/28/18 09:40 Dose: 400 mg Sertraline HCl (Zoloft) 100 mg PO DAILY [facility] Last Admin: 04/28/18 09:40 Dose: 100 mg Trimethoprim/Sulfamethoxazole (Bactrim Ds Tab) 1 tab PO Q12 [facility] PRN Reason: Protocol Last Admin: 04/28/18 09:40 Dose: 1 tab - Labs Labs: 04/26/18 05:30 04/27/18 05:40 PT 11.4 Seconds (9.8-13.1) 04/26/18 05:30 INR 1.0 (0.9-1.2) 04/26/18 05:30 APTT 29.6 Seconds (25.6-37.1) 04/26/18 05:30 - Constitutional Appears: Chronically Ill - Head Exam Head Exam: NORMAL INSPECTION - Eye Exam Eye Exam: PERRL - ENT Exam ENT Exam: Normal Exam - Neck Exam Neck Exam: Normal Inspection - Respiratory Exam Respiratory Exam: Clear to Ausculation Bilateral - Cardiovascular Exam Cardiovascular Exam: REGULAR RHYTHM - GI/Abdominal Exam GI & Abdominal Exam: Soft, Normal Bowel Sounds - Extremities Exam Extremities Exam: Normal Inspection - Back Exam Back Exam: NORMAL INSPECTION - Neurological Exam Neurological Exam: Alert, Oriented x3 Additional comments: No focal motor/sensory deficit, - Psychiatric Exam Psychiatric exam: Anxious - Skin Skin Exam: Warm Assessment and Plan (1) Pneumonia Status: Acute (2) HIV (human immunodeficiency virus infection) Status: Chronic - Assessment and Plan (Free Text) Plan: Continue Zosyn, Diflucan, Bactrim and rest of Tx.
[2018-04-29] MEDS: Tmp-Smz 800 mg-160 mg DS Tab PO SCH ×2 (08:49→20:46)
[2018-04-29] MEDS: FLUCONAZOLE IN DEXTROSE 200 MG/100 ML PIGGYBACK IVPB SCH (08:49)
[2018-04-29] MEDS: Lactobacillus Acidophilus 500 MU Cap PO SCH ×2 (08:49→16:47)
[2018-04-29] MEDS: Nystatin 100,000 Units/ml Oral Susp 5 ml UD PO SCH ×4 (08:50→21:04)
[2018-04-29] MEDS: Pantoprazole 40 mg EC Tab PO SCH (08:50)
[2018-04-29 09:46] LABS: HEMOGLOBIN 10.5 g/dL (12.0-18.0); MEAN CELL VOLUME 92.9 fl (80.0-94.0); MEAN CORPUSCULAR HEMOGLOBIN 31.1 pg (27.0-31.0); MEAN CORPUSCULAR HGB CONC 33.5 g/dL (33.0-37.0); RBC 3.37 Mil/uL (4.40-5.90); RED CELL DISTRIBUTION WIDTH 17.9 % (11.5-14.5); WHITE BLOOD COUNT 5.8 K/uL (4.8-10.8)
[2018-04-29 10:23] LABS: ALB/GLOB RATIO 0.8 (1.0-2.1); ALBUMIN 3.1 g/dL (3.5-5.0); ALT/SGPT 26 U/L (21-72); AST/SGOT 45 U/L (17-59); BLOOD UREA NITROGEN 14 mg/dl (9-20); CALCIUM 8.7 mg/dL (8.4-10.2); GFR AFRICAN-AMERICAN > 60; GFR NON-AFRICAN AMERICAN > 60
--- NOTE | 2018-04-29 17:53 | CP.PCM.PN ---
Subjective - Date & Time of Evaluation Date of Evaluation: 04/29/18 Time of Evaluation: 17:48 - Subjective Subjective: I D NOTE AWAIT RESULTS FROM BRONCHOSCOPY CULTURES F/U BLOOD & URINE CULTURES ARE NEGATIVE ECHOCARDIOGAM INITIALLY DONE IS NORMAL VIRAL LOAD IS HIGH CD4 IS DECREASED WILLDISCUSS F/U CHEST CT c AND CONSIDER STOPPING DIFLUCAN AND ZOSYN PENDING THESE RESULTS Objective - Vital Signs/Intake and Output Vital Signs (last 24 hours): Temp Pulse Resp BP Pulse Ox 97.5 F L 86 20 127/80 98 04/29/18 16:23 04/29/18 16:23 04/29/18 16:23 04/29/18 16:23 04/29/18 16:23 Intake and Output: 04/29/18 04/29/18 06:59 18:59 Output Total 900 Balance -900 - Medications Medications: Current Medications Abacavir Sulfate (Ziagen) 600 mg PO DAILY [facility] PRN Reason: Protocol Last Admin: 04/29/18 08:49 Dose: 600 mg Carvedilol (Coreg) 6.25 mg PO DAILY [facility] Last Admin: 04/29/18 08:50 Dose: 6.25 mg FLUCONAZOLE IN DEXTROSE (Fluconazole-Dext 200 Mg/100 Ml) 200 mg in 100 mls @ 100 mls/hr IVPB DAILY [facility] Last Admin: 04/29/18 08:49 Dose: 100 mls/hr Piperacillin Sod/Tazobactam (Sod 2.25 gm/ Sodium Chloride) 100 mls @ 100 mls/ hr IVPB Q6 [facility] PRN Reason: Protocol Last Admin: 04/29/18 16:45 Dose: 100 mls/hr Lactated Ringer's (Lactated Ringer's 500ml) 500 mls @ 100 mls/hr IV .Q5H [facility] Lactobacillus Acidophilus (Bacid Acidophilus) 1 cap PO BID [facility] Last Admin: 04/29/18 16:47 Dose: 1 cap Lamivudine (Epivir) 300 mg PO DAILY [facility] PRN Reason: Protocol Last Admin: 04/29/18 08:49 Dose: 300 mg Nystatin (Nystatin Oral Susp) 5 ml PO QID [facility] Last Admin: 04/29/18 16:45 Dose: 5 ml Pantoprazole Sodium (Protonix Ec Tab) 40 mg PO DAILY [facility] Last Admin: 04/29/18 08:50 Dose: 40 mg Raltegravir (Isentress) 400 mg PO BID [facility] PRN Reason: Protocol Last Admin: 04/29/18 16:46 Dose: 400 mg Sertraline HCl (Zoloft) 100 mg PO DAILY [facility] Last Admin: 04/29/18 08:50 Dose: 100 mg Trimethoprim/Sulfamethoxazole (Bactrim Ds Tab) 1 tab PO Q12 [facility] PRN Reason: Protocol Last Admin: 04/29/18 08:49 Dose: 1 tab - Labs Labs: 04/29/18 09:20 04/29/18 09:20 PT 11.4 Seconds (9.8-13.1) 04/26/18 05:30 INR 1.0 (0.9-1.2) 04/26/18 05:30 APTT 29.6 Seconds (25.6-37.1) 04/26/18 05:30
--- NOTE | 2018-04-29 18:02 | CP.PCM.PN ---
Subjective - Date & Time of Evaluation Date of Evaluation: 04/29/18 Time of Evaluation: 12:45 - Subjective Subjective: F/U PNA No SOB, no cough. Objective - Vital Signs/Intake and Output Vital Signs (last 24 hours): Temp Pulse Resp BP Pulse Ox 97.5 F L 86 20 127/80 98 04/29/18 16:23 04/29/18 16:23 04/29/18 16:23 04/29/18 16:23 04/29/18 16:23 Intake and Output: 04/29/18 04/29/18 06:59 18:59 Output Total 900 Balance -900 - Medications Medications: Current Medications Abacavir Sulfate (Ziagen) 600 mg PO DAILY [facility] PRN Reason: Protocol Last Admin: 04/29/18 08:49 Dose: 600 mg Carvedilol (Coreg) 6.25 mg PO DAILY [facility] Last Admin: 04/29/18 08:50 Dose: 6.25 mg FLUCONAZOLE IN DEXTROSE (Fluconazole-Dext 200 Mg/100 Ml) 200 mg in 100 mls @ 100 mls/hr IVPB DAILY [facility] Last Admin: 04/29/18 08:49 Dose: 100 mls/hr Piperacillin Sod/Tazobactam (Sod 2.25 gm/ Sodium Chloride) 100 mls @ 100 mls/ hr IVPB Q6 [facility] PRN Reason: Protocol Last Admin: 04/29/18 16:45 Dose: 100 mls/hr Lactated Ringer's (Lactated Ringer's 500ml) 500 mls @ 100 mls/hr IV .Q5H [facility] Lactobacillus Acidophilus (Bacid Acidophilus) 1 cap PO BID [facility] Last Admin: 04/29/18 16:47 Dose: 1 cap Lamivudine (Epivir) 300 mg PO DAILY [facility] PRN Reason: Protocol Last Admin: 04/29/18 08:49 Dose: 300 mg Nystatin (Nystatin Oral Susp) 5 ml PO QID [facility] Last Admin: 04/29/18 16:45 Dose: 5 ml Pantoprazole Sodium (Protonix Ec Tab) 40 mg PO DAILY [facility] Last Admin: 04/29/18 08:50 Dose: 40 mg Raltegravir (Isentress) 400 mg PO BID [facility] PRN Reason: Protocol Last Admin: 04/29/18 16:46 Dose: 400 mg Sertraline HCl (Zoloft) 100 mg PO DAILY [facility] Last Admin: 04/29/18 08:50 Dose: 100 mg Trimethoprim/Sulfamethoxazole (Bactrim Ds Tab) 1 tab PO Q12 [facility] PRN Reason: Protocol Last Admin: 04/29/18 08:49 Dose: 1 tab - Labs Labs: 04/29/18 09:20 04/29/18 09:20 PT 11.4 Seconds (9.8-13.1) 04/26/18 05:30 INR 1.0 (0.9-1.2) 04/26/18 05:30 APTT 29.6 Seconds (25.6-37.1) 04/26/18 05:30 - Constitutional Appears: Chronically Ill - Head Exam Head Exam: NORMAL INSPECTION - Eye Exam Eye Exam: PERRL - ENT Exam ENT Exam: Normal Exam - Neck Exam Neck Exam: Normal Inspection - Respiratory Exam Respiratory Exam: Clear to Ausculation Bilateral - Cardiovascular Exam Cardiovascular Exam: REGULAR RHYTHM - GI/Abdominal Exam GI & Abdominal Exam: Soft, Normal Bowel Sounds - Exam Additional comments: Suprapubic Cath - Extremities Exam Extremities Exam: Normal Inspection - Back Exam Back Exam: NORMAL INSPECTION - Neurological Exam Neurological Exam: Alert, Oriented x3 Additional comments: No focal motor/sensory deficit. - Psychiatric Exam Psychiatric exam: Anxious - Skin Skin Exam: Warm Assessment and Plan (1) Pneumonia Status: Acute (2) HIV (human immunodeficiency virus infection) Status: Chronic - Assessment and Plan (Free Text) Plan: F/U Bronchial wash C-S, bronchial Bx C-S, continue Zosyn, Diflucan, Bactrim.
[2018-04-30] MEDS: Lactobacillus Acidophilus 500 MU Cap PO SCH ×2 (09:30→16:09)
[2018-04-30] MEDS: Pantoprazole 40 mg EC Tab PO SCH (09:30)
[2018-04-30] MEDS: Tmp-Smz 800 mg-160 mg DS Tab PO SCH ×2 (09:30→21:25)
[2018-04-30] MEDS: Nystatin 100,000 Units/ml Oral Susp 5 ml UD PO SCH ×4 (09:31→21:25)
[2018-04-30] MEDS: FLUCONAZOLE IN DEXTROSE 200 MG/100 ML PIGGYBACK IVPB SCH (12:02)
[2018-05-01] MEDS: FLUCONAZOLE IN DEXTROSE 200 MG/100 ML PIGGYBACK IVPB SCH (08:31)
[2018-05-01] MEDS: Pantoprazole 40 mg EC Tab PO SCH (08:32)
[2018-05-01] MEDS: Lactobacillus Acidophilus 500 MU Cap PO SCH ×2 (08:32→16:47)
[2018-05-01] MEDS: Tmp-Smz 800 mg-160 mg DS Tab PO SCH (08:32)
[2018-05-01] MEDS: Nystatin 100,000 Units/ml Oral Susp 5 ml UD PO SCH ×4 (08:33→22:28)
--- NOTE | 2018-05-01 09:10 | CP.PCM.PN ---
Subjective - Date & Time of Evaluation Date of Evaluation: 04/30/18 Time of Evaluation: 11:40 - Subjective Subjective: NOTE FOR 04/30/18. F/U PNA No SOB, no cough. Objective - Vital Signs/Intake and Output Vital Signs (last 24 hours): Temp Pulse Resp BP Pulse Ox 99.2 F 82 20 127/88 98 05/01/18 08:26 05/01/18 08:32 05/01/18 08:26 05/01/18 08:32 05/01/18 08:26 Intake and Output: 05/01/18 05/01/18 06:59 18:59 Output Total 1350 Balance -1350 - Medications Medications: Current Medications Abacavir Sulfate (Ziagen) 600 mg PO DAILY [facility] PRN Reason: Protocol Last Admin: 05/01/18 08:32 Dose: 600 mg Carvedilol (Coreg) 6.25 mg PO DAILY [facility] Last Admin: 05/01/18 08:32 Dose: 6.25 mg FLUCONAZOLE IN DEXTROSE (Fluconazole-Dext 200 Mg/100 Ml) 200 mg in 100 mls @ 100 mls/hr IVPB DAILY [facility] Last Admin: 05/01/18 08:31 Dose: 100 mls/hr Piperacillin Sod/Tazobactam (Sod 2.25 gm/ Sodium Chloride) 100 mls @ 100 mls/ hr IVPB Q6 [facility] PRN Reason: Protocol Last Admin: 05/01/18 03:41 Dose: 100 mls/hr Lactobacillus Acidophilus (Bacid Acidophilus) 1 cap PO BID [facility] Last Admin: 05/01/18 08:32 Dose: 1 cap Lamivudine (Epivir) 300 mg PO DAILY [facility] PRN Reason: Protocol Last Admin: 05/01/18 08:32 Dose: 300 mg Nystatin (Nystatin Oral Susp) 5 ml PO QID [facility] Last Admin: 05/01/18 08:33 Dose: 5 ml Pantoprazole Sodium (Protonix Ec Tab) 40 mg PO DAILY [facility] Last Admin: 05/01/18 08:32 Dose: 40 mg Raltegravir (Isentress) 400 mg PO BID [facility] PRN Reason: Protocol Last Admin: 05/01/18 08:32 Dose: 400 mg Sertraline HCl (Zoloft) 100 mg PO DAILY [facility] Last Admin: 05/01/18 08:32 Dose: 100 mg Trimethoprim/Sulfamethoxazole (Bactrim Ds Tab) 1 tab PO Q12 [facility] PRN Reason: Protocol Last Admin: 05/01/18 08:32 Dose: 1 tab - Labs Labs: 04/29/18 09:20 04/29/18 09:20 PT 11.4 Seconds (9.8-13.1) 04/26/18 05:30 INR 1.0 (0.9-1.2) 04/26/18 05:30 APTT 29.6 Seconds (25.6-37.1) 04/26/18 05:30 - Constitutional Appears: Chronically Ill - Head Exam Head Exam: NORMAL INSPECTION - Eye Exam Eye Exam: PERRL - ENT Exam ENT Exam: Normal Exam - Neck Exam Neck Exam: Normal Inspection - Respiratory Exam Respiratory Exam: Clear to Ausculation Bilateral - Cardiovascular Exam Cardiovascular Exam: REGULAR RHYTHM - GI/Abdominal Exam GI & Abdominal Exam: Soft, Normal Bowel Sounds - Exam Additional comments: Suprapubic Cath - Extremities Exam Extremities Exam: Normal Inspection - Back Exam Back Exam: NORMAL INSPECTION - Neurological Exam Neurological Exam: Alert, Oriented x3 Additional comments: No focal motor/sensory deficit. - Psychiatric Exam Psychiatric exam: Anxious - Skin Skin Exam: Warm Assessment and Plan (1) Pneumonia Status: Acute (2) HIV (human immunodeficiency virus infection) Status: Chronic - Assessment and Plan (Free Text) Plan: U C-S: Yeast Species, bronchial wash: negative, bronchial Bx: Pneumonitis. Negative for granuloma or malignancy. Report will follow upon completion of special stains for acid fast bacilli fungi and pneumocystis. Continue Zosyn, Diflucan and Bactrim. F/U ID consult.
--- NOTE | 2018-05-01 14:24 | CP.PCM.PN ---
Subjective - Date & Time of Evaluation Date of Evaluation: 05/01/18 Time of Evaluation: 13:00 - Subjective Subjective: no AD, no SOB, no cough Objective - Vital Signs/Intake and Output Vital Signs (last 24 hours): Temp Pulse Resp BP Pulse Ox 99.2 F 82 20 127/88 98 05/01/18 08:26 05/01/18 08:32 05/01/18 08:26 05/01/18 08:32 05/01/18 08:26 Intake and Output: 05/01/18 05/01/18 06:59 18:59 Output Total 1350 Balance -1350 - Medications Medications: Current Medications Abacavir Sulfate (Ziagen) 600 mg PO DAILY [facility] PRN Reason: Protocol Last Admin: 05/01/18 08:32 Dose: 600 mg Carvedilol (Coreg) 6.25 mg PO DAILY [facility] Last Admin: 05/01/18 08:32 Dose: 6.25 mg FLUCONAZOLE IN DEXTROSE (Fluconazole-Dext 200 Mg/100 Ml) 200 mg in 100 mls @ 100 mls/hr IVPB DAILY [facility] Last Admin: 05/01/18 08:31 Dose: 100 mls/hr Piperacillin Sod/Tazobactam (Sod 2.25 gm/ Sodium Chloride) 100 mls @ 100 mls/ hr IVPB Q6 [facility] PRN Reason: Protocol Last Admin: 05/01/18 09:08 Dose: 100 mls/hr Lactobacillus Acidophilus (Bacid Acidophilus) 1 cap PO BID [facility] Last Admin: 05/01/18 08:32 Dose: 1 cap Lamivudine (Epivir) 300 mg PO DAILY [facility] PRN Reason: Protocol Last Admin: 05/01/18 08:32 Dose: 300 mg Nystatin (Nystatin Oral Susp) 5 ml PO QID [facility] Last Admin: 05/01/18 12:13 Dose: 5 ml Pantoprazole Sodium (Protonix Ec Tab) 40 mg PO DAILY [facility] Last Admin: 05/01/18 08:32 Dose: 40 mg Raltegravir (Isentress) 400 mg PO BID [facility] PRN Reason: Protocol Last Admin: 05/01/18 08:32 Dose: 400 mg Sertraline HCl (Zoloft) 100 mg PO DAILY [facility] Last Admin: 05/01/18 08:32 Dose: 100 mg - Labs Labs: 04/29/18 09:20 04/29/18 09:20 PT 11.4 Seconds (9.8-13.1) 04/26/18 05:30 INR 1.0 (0.9-1.2) 04/26/18 05:30 APTT 29.6 Seconds (25.6-37.1) 04/26/18 05:30 - Constitutional Appears: Chronically Ill - Head Exam Head Exam: NORMAL INSPECTION - Eye Exam Eye Exam: PERRL - ENT Exam ENT Exam: Normal Exam - Neck Exam Neck Exam: Normal Inspection - Respiratory Exam Respiratory Exam: Clear to Ausculation Bilateral - Cardiovascular Exam Cardiovascular Exam: REGULAR RHYTHM - GI/Abdominal Exam GI & Abdominal Exam: Soft, Normal Bowel Sounds - Exam Additional comments: suprapubic catheter - Extremities Exam Extremities Exam: Normal Inspection - Back Exam Back Exam: NORMAL INSPECTION - Neurological Exam Neurological Exam: Alert, Oriented x3 Additional comments: no focal motor/sensory deficit - Psychiatric Exam Psychiatric exam: Anxious - Skin Skin Exam: Warm Assessment and Plan (1) Pneumonia Status: Acute (2) HIV (human immunodeficiency virus infection) Status: Chronic - Assessment and Plan (Free Text) Plan: Lung Bx and C-S discussed with ID, DC IV Diflucan ,Diflucan po, Zosyn, f/u Bronchial washing C-S, continue HIV treatment
--- NOTE | 2018-05-01 18:06 | CP.PCM.PN ---
Subjective - Date & Time of Evaluation Date of Evaluation: 05/01/18 Time of Evaluation: 18:08 - Subjective Subjective: I D NOTE HAVE DISCONTINUE IV DIFLUCAN WILL ORDER F/U BLOOD CULTURES DISCUSSED c ,IF BRONCHIAL CULTURES ARE NEGATIVE EOULD DISCHARGE ON ARVs ALONG c bactrim zithromax prophylaxis & diflucan need to make appointment at [facility] Objective - Vital Signs/Intake and Output Vital Signs (last 24 hours): Temp Pulse Resp BP Pulse Ox 97.7 F 83 20 123/82 97 05/01/18 16:25 05/01/18 16:25 05/01/18 16:25 05/01/18 16:25 05/01/18 16:25 Intake and Output: 05/01/18 05/01/18 06:59 18:59 Output Total 1350 1100 Balance -1350 -1100 - Medications Medications: Current Medications Abacavir Sulfate (Ziagen) 600 mg PO DAILY [facility] PRN Reason: Protocol Last Admin: 05/01/18 08:32 Dose: 600 mg Carvedilol (Coreg) 6.25 mg PO DAILY [facility] Last Admin: 05/01/18 08:32 Dose: 6.25 mg Fluconazole (Diflucan) 100 mg PO DAILY [facility] PRN Reason: Protocol Piperacillin Sod/Tazobactam (Sod 2.25 gm/ Sodium Chloride) 100 mls @ 100 mls/ hr IVPB Q6 [facility] PRN Reason: Protocol Last Admin: 05/01/18 16:46 Dose: 100 mls/hr Lactobacillus Acidophilus (Bacid Acidophilus) 1 cap PO BID [facility] Last Admin: 05/01/18 16:47 Dose: 1 cap Lamivudine (Epivir) 300 mg PO DAILY [facility] PRN Reason: Protocol Last Admin: 05/01/18 08:32 Dose: 300 mg Nystatin (Nystatin Oral Susp) 5 ml PO QID [facility] Last Admin: 05/01/18 16:46 Dose: 5 ml Pantoprazole Sodium (Protonix Ec Tab) 40 mg PO DAILY [facility] Last Admin: 05/01/18 08:32 Dose: 40 mg Raltegravir (Isentress) 400 mg PO BID [facility] PRN Reason: Protocol Last Admin: 05/01/18 16:47 Dose: 400 mg Sertraline HCl (Zoloft) 100 mg PO DAILY [facility] Last Admin: 05/01/18 08:32 Dose: 100 mg - Labs Labs: 04/29/18 09:20 04/29/18 09:20 PT 11.4 Seconds (9.8-13.1) 04/26/18 05:30 INR 1.0 (0.9-1.2) 04/26/18 05:30 APTT 29.6 Seconds (25.6-37.1) 04/26/18 05:30
[2018-05-02] MEDS: Pantoprazole 40 mg EC Tab PO SCH (09:03)
[2018-05-02] MEDS: Nystatin 100,000 Units/ml Oral Susp 5 ml UD PO SCH ×4 (09:03→21:13)
[2018-05-02] MEDS: Lactobacillus Acidophilus 500 MU Cap PO SCH ×2 (09:08→16:25)
--- NOTE | 2018-05-02 14:06 | CP.PCM.PN ---
Subjective - Date & Time of Evaluation Date of Evaluation: 05/02/18 Time of Evaluation: 12:40 - Subjective Subjective: F/U PNA no SOB, no RODRIGUEZ, no cough Objective - Vital Signs/Intake and Output Vital Signs (last 24 hours): Temp Pulse Resp BP Pulse Ox 98.4 F 86 18 120/73 97 05/02/18 01:00 05/02/18 09:18 05/02/18 01:00 05/02/18 09:18 05/02/18 01:00 - Medications Medications: Current Medications Abacavir Sulfate (Ziagen) 600 mg PO DAILY [facility] PRN Reason: Protocol Last Admin: 05/02/18 09:03 Dose: 600 mg Carvedilol (Coreg) 6.25 mg PO DAILY [facility] Last Admin: 05/02/18 09:18 Dose: 6.25 mg Fluconazole (Diflucan) 100 mg PO DAILY [facility] PRN Reason: Protocol Last Admin: 05/02/18 09:03 Dose: 100 mg Piperacillin Sod/Tazobactam (Sod 2.25 gm/ Sodium Chloride) 100 mls @ 100 mls/ hr IVPB Q6 [facility] PRN Reason: Protocol Last Admin: 05/02/18 09:02 Dose: 100 mls/hr Lactobacillus Acidophilus (Bacid Acidophilus) 1 cap PO BID [facility] Last Admin: 05/02/18 09:08 Dose: 1 cap Lamivudine (Epivir) 300 mg PO DAILY [facility] PRN Reason: Protocol Last Admin: 05/02/18 09:02 Dose: 300 mg Nystatin (Nystatin Oral Susp) 5 ml PO QID [facility] Last Admin: 05/02/18 13:00 Dose: 5 ml Pantoprazole Sodium (Protonix Ec Tab) 40 mg PO DAILY [facility] Last Admin: 05/02/18 09:03 Dose: 40 mg Raltegravir (Isentress) 400 mg PO BID [facility] PRN Reason: Protocol Last Admin: 05/01/18 16:47 Dose: 400 mg Sertraline HCl (Zoloft) 100 mg PO DAILY [facility] Last Admin: 05/02/18 09:03 Dose: 100 mg - Labs Labs: 04/29/18 09:20 04/29/18 09:20 PT 11.4 Seconds (9.8-13.1) 04/26/18 05:30 INR 1.0 (0.9-1.2) 04/26/18 05:30 APTT 29.6 Seconds (25.6-37.1) 04/26/18 05:30 - Constitutional Appears: Chronically Ill - Head Exam Head Exam: NORMAL INSPECTION - Eye Exam Eye Exam: PERRL - ENT Exam ENT Exam: Normal Exam - Neck Exam Neck Exam: Normal Inspection - Respiratory Exam Respiratory Exam: Clear to Ausculation Bilateral - Cardiovascular Exam Cardiovascular Exam: REGULAR RHYTHM - GI/Abdominal Exam GI & Abdominal Exam: Soft, Normal Bowel Sounds - Exam Additional comments: Suprapubic Catheter - Extremities Exam Extremities Exam: Normal Inspection - Back Exam Back Exam: NORMAL INSPECTION - Neurological Exam Neurological Exam: Alert, Oriented x3 Additional comments: No focal motor/sensory deficit. - Psychiatric Exam Psychiatric exam: Anxious - Skin Skin Exam: Warm Assessment and Plan (1) Pneumonia Status: Acute (2) HIV (human immunodeficiency virus infection) Status: Chronic - Assessment and Plan (Free Text) Plan: dicussed with ID Diflucan IV DC , awating Lung Bx AFB and PCP , if negative and also Blood C-S negative , Patient can be discharged ARV , Bactrim, Zithromax prophylaxis,Diflucan
[2018-05-03] MEDS: Lactobacillus Acidophilus 500 MU Cap PO SCH ×2 (09:20→16:52)
[2018-05-03] MEDS: Nystatin 100,000 Units/ml Oral Susp 5 ml UD PO SCH ×4 (09:21→21:57)
[2018-05-03] MEDS: Pantoprazole 40 mg EC Tab PO SCH (09:22)
--- NOTE | 2018-05-04 08:49 | CP.PCM.PN ---
Subjective - Date & Time of Evaluation Date of Evaluation: 05/03/18 Time of Evaluation: 12:30 - Subjective Subjective: NOTE FOR no AD , no cough , no SOB Objective - Vital Signs/Intake and Output Vital Signs (last 24 hours): Temp Pulse Resp BP Pulse Ox 97.8 F 93 H 19 114/76 97 05/04/18 00:00 05/04/18 00:00 05/04/18 00:00 05/04/18 00:00 05/04/18 00:00 Intake and Output: 05/04/18 05/04/18 06:59 18:59 Output Total 950 Balance -950 - Medications Medications: Current Medications Abacavir Sulfate (Ziagen) 600 mg PO DAILY [facility] PRN Reason: Protocol Last Admin: 05/03/18 09:21 Dose: 600 mg Carvedilol (Coreg) 6.25 mg PO DAILY [facility] Last Admin: 05/03/18 09:21 Dose: 6.25 mg Fluconazole (Diflucan) 100 mg PO DAILY [facility] PRN Reason: Protocol Last Admin: 05/03/18 09:21 Dose: 100 mg Piperacillin Sod/Tazobactam (Sod 2.25 gm/ Sodium Chloride) 100 mls @ 100 mls/ hr IVPB Q6 [facility] PRN Reason: Protocol Last Admin: 05/04/18 03:17 Dose: 100 mls/hr Lactobacillus Acidophilus (Bacid Acidophilus) 1 cap PO BID [facility] Last Admin: 05/03/18 16:52 Dose: 1 cap Lamivudine (Epivir) 300 mg PO DAILY [facility] PRN Reason: Protocol Last Admin: 05/03/18 09:21 Dose: 300 mg Nystatin (Nystatin Oral Susp) 5 ml PO QID [facility] Last Admin: 05/03/18 21:57 Dose: 5 ml Pantoprazole Sodium (Protonix Ec Tab) 40 mg PO DAILY [facility] Last Admin: 05/03/18 09:22 Dose: 40 mg Raltegravir (Isentress) 400 mg PO BID [facility] PRN Reason: Protocol Last Admin: 05/03/18 16:53 Dose: 400 mg Sertraline HCl (Zoloft) 100 mg PO DAILY [facility] Last Admin: 05/03/18 09:20 Dose: 100 mg - Labs Labs: 04/29/18 09:20 04/29/18 09:20 PT 11.4 Seconds (9.8-13.1) 04/26/18 05:30 INR 1.0 (0.9-1.2) 04/26/18 05:30 APTT 29.6 Seconds (25.6-37.1) 04/26/18 05:30 - Constitutional Appears: Chronically Ill - Head Exam Head Exam: NORMAL INSPECTION - Eye Exam Eye Exam: PERRL - ENT Exam ENT Exam: Normal Exam - Neck Exam Neck Exam: Normal Inspection - Respiratory Exam Respiratory Exam: Clear to Ausculation Bilateral - Cardiovascular Exam Cardiovascular Exam: REGULAR RHYTHM - GI/Abdominal Exam GI & Abdominal Exam: Soft, Normal Bowel Sounds - Exam Additional comments: suprapubic catheter - Extremities Exam Extremities Exam: Normal Inspection - Back Exam Back Exam: NORMAL INSPECTION - Neurological Exam Neurological Exam: Alert, Oriented x3. absent: Motor Sensory Deficit - Psychiatric Exam Psychiatric exam: Anxious - Skin Skin Exam: Warm Assessment and Plan (1) Pneumonia Status: Acute (2) HIV (human immunodeficiency virus infection) Status: Chronic - Assessment and Plan (Free Text) Plan: f/u final Path report for AFB ,PCP , fungus, continue rest of treatment
[2018-05-04] MEDS: Nystatin 100,000 Units/ml Oral Susp 5 ml UD PO SCH ×4 (10:02→21:09)
[2018-05-04] MEDS: Lactobacillus Acidophilus 500 MU Cap PO SCH ×2 (10:03→16:01)
[2018-05-04] MEDS: Pantoprazole 40 mg EC Tab PO SCH (10:05)
--- NOTE | 2018-05-04 12:59 | PQF ---
PROVIDER RESPONSE TEXT: Fungiemia (maggie auris) REVIEWER QUERY TEXT: Documentation Clarification Would you please clarify if there is an associated diagnosis to go along with the documentation of po sitive blood cultures or no additional diagnosis . Your help is requested in clarifying the following clinical documentation ( + blood cultures) , if yo u can please further specify in the medical record and discharge summary. The patient's Clinical Indicators include: Patient presents with fever, chills, weakness and dry cough. CD4 count is 183 and started on medicati ons. Being treated for Pneumonia. Blood CS grew Maggie Auris and Urine CS grew Maggie. Patient has a suprapubic catheter. WBC 10.8 on admission TEMP 101.2, 98.2, 97.4 HR 118, 98, 112, 81, 112, 91, 86 BP: 152/102, 102/63, 104/69, 127/77, 115/69, 120/71 Treated with Diflucan, Bactrim, Clindamycin, Zosyn Query created by: Vi Kahn on 04/21/2018 9:59 AM PROVIDER RESPONSE TEXT: Probably has a causal effect between the uti and suprapubic catheter Catheter was removed to prevent chronic infection and should be changed monthly REVIEWER QUERY TEXT: Cause and Effect Relationship Please clarify in documentation the relationship, if any, between the SUPRAPUBIC CATHETER and the YEA ST UTI. Such as: -- Conditions are due to or associated ( UTI 2* suprapubic catheter) -- Unrelated to each other -- Other, please specify The patient's Clinical Indicators include: Patient presents with a suprapubic catheter and being admitted for pneumonia. ER MD has documented la rge hematuria and WBC indicative of UTI. Patient has a suprapubic catheter present on admission. Docu mentation of yeast UTI. UA: cloudy, blood, leukocytes, RBC, WBC, bacteria WBC 10.8 . ESR 105, URINE CS: Yeast species, BLOOD CS: Maggie Auris. Treated with DIflucan. Query created by: Vi Khan on 04/21/2018 12:48 PM Electronically signed by: Mark Anthony Vital MD 05/04/2018 12:56 PM
--- NOTE | 2018-05-04 15:53 | CP.PCM.PN ---
Subjective - Date & Time of Evaluation Date of Evaluation: 05/04/18 Time of Evaluation: 13:30 - Subjective Subjective: F/U PNA Objective - Vital Signs/Intake and Output Vital Signs (last 24 hours): Temp Pulse Resp BP Pulse Ox 97.6 F 93 H 18 114/81 98 05/04/18 15:47 05/04/18 15:47 05/04/18 15:47 05/04/18 15:47 05/04/18 15:47 Intake and Output: 05/04/18 05/04/18 06:59 18:59 Output Total 950 Balance -950 - Medications Medications: Current Medications Abacavir Sulfate (Ziagen) 600 mg PO DAILY [facility] PRN Reason: Protocol Last Admin: 05/04/18 10:04 Dose: 600 mg Carvedilol (Coreg) 6.25 mg PO DAILY [facility] Last Admin: 05/04/18 10:04 Dose: 6.25 mg Fluconazole (Diflucan) 100 mg PO DAILY [facility] PRN Reason: Protocol Last Admin: 05/04/18 10:05 Dose: 100 mg Piperacillin Sod/Tazobactam (Sod 2.25 gm/ Sodium Chloride) 100 mls @ 100 mls/ hr IVPB Q6 [facility] PRN Reason: Protocol Last Admin: 05/04/18 10:03 Dose: 100 mls/hr Lactobacillus Acidophilus (Bacid Acidophilus) 1 cap PO BID [facility] Last Admin: 05/04/18 10:03 Dose: 1 cap Lamivudine (Epivir) 300 mg PO DAILY [facility] PRN Reason: Protocol Last Admin: 05/04/18 10:05 Dose: 300 mg Nystatin (Nystatin Oral Susp) 5 ml PO QID [facility] Last Admin: 05/04/18 10:02 Dose: 5 ml Pantoprazole Sodium (Protonix Ec Tab) 40 mg PO DAILY [facility] Last Admin: 05/04/18 10:05 Dose: 40 mg Raltegravir (Isentress) 400 mg PO BID [facility] PRN Reason: Protocol Last Admin: 05/04/18 10:04 Dose: 400 mg Sertraline HCl (Zoloft) 100 mg PO DAILY [facility] Last Admin: 05/04/18 10:04 Dose: 100 mg - Labs Labs: 04/29/18 09:20 04/29/18 09:20 PT 11.4 Seconds (9.8-13.1) 04/26/18 05:30 INR 1.0 (0.9-1.2) 04/26/18 05:30 APTT 29.6 Seconds (25.6-37.1) 04/26/18 05:30 - Constitutional Appears: Chronically Ill - Head Exam Head Exam: NORMAL INSPECTION - Eye Exam Eye Exam: PERRL - ENT Exam ENT Exam: Normal Exam - Neck Exam Neck Exam: Normal Inspection - Respiratory Exam Respiratory Exam: Clear to Ausculation Bilateral - Cardiovascular Exam Cardiovascular Exam: REGULAR RHYTHM - GI/Abdominal Exam GI & Abdominal Exam: Soft, Normal Bowel Sounds - Exam Additional comments: Suprapubic Catheter - Extremities Exam Extremities Exam: Normal Inspection - Back Exam Back Exam: NORMAL INSPECTION - Neurological Exam Neurological Exam: Alert, Oriented x3. absent: Motor Sensory Deficit - Psychiatric Exam Psychiatric exam: Anxious - Skin Skin Exam: Warm Assessment and Plan (1) Pneumonia Status: Acute (2) HIV (human immunodeficiency virus infection) Status: Chronic
--- NOTE | 2018-05-04 19:43 | CP.PCM.PN ---
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 patient on zosyn,prior to discharge have ordered vancomycin could switch to po amoxil Objective - Vital Signs/Intake and Output Vital Signs (last 24 hours): Temp Pulse Resp BP Pulse Ox 97.6 F 93 H 18 114/81 98 05/04/18 15:47 05/04/18 15:47 05/04/18 15:47 05/04/18 15:47 05/04/18 15:47 - Medications Medications: Current Medications Abacavir Sulfate (Ziagen) 600 mg PO DAILY [facility] PRN Reason: Protocol Last Admin: 05/04/18 10:04 Dose: 600 mg Carvedilol (Coreg) 6.25 mg PO DAILY [facility] Last Admin: 05/04/18 10:04 Dose: 6.25 mg Fluconazole (Diflucan) 100 mg PO DAILY [facility] PRN Reason: Protocol Last Admin: 05/04/18 10:05 Dose: 100 mg Vancomycin HCl 500 mg/ Sodium (Chloride) 100 mls @ 100 mls/hr IVPB Q12 [facility] PRN Reason: Protocol Lactobacillus Acidophilus (Bacid Acidophilus) 1 cap PO BID [facility] Last Admin: 05/04/18 16:01 Dose: 1 cap Lamivudine (Epivir) 300 mg PO DAILY [facility] PRN Reason: Protocol Last Admin: 05/04/18 10:05 Dose: 300 mg Nystatin (Nystatin Oral Susp) 5 ml PO QID [facility] Last Admin: 05/04/18 16:02 Dose: 5 ml Pantoprazole Sodium (Protonix Ec Tab) 40 mg PO DAILY [facility] Last Admin: 05/04/18 10:05 Dose: 40 mg Raltegravir (Isentress) 400 mg PO BID [facility] PRN Reason: Protocol Last Admin: 05/04/18 16:01 Dose: 400 mg Sertraline HCl (Zoloft) 100 mg PO DAILY [facility] Last Admin: 05/04/18 10:04 Dose: 100 mg - Labs Labs: 04/29/18 09:20 04/29/18 09:20 PT 11.4 Seconds (9.8-13.1) 04/26/18 05:30 INR 1.0 (0.9-1.2) 04/26/18 05:30 APTT 29.6 Seconds (25.6-37.1) 04/26/18 05:30
[2018-05-05] MEDS ORDERED: Sodium Chloride 3% for Inhalation 4 ML VIAL.NEB IH ONE (05:19)
[2018-05-05] MEDS: Nystatin 100,000 Units/ml Oral Susp 5 ml UD PO SCH ×4 (08:27→21:41)
[2018-05-05] MEDS: Lactobacillus Acidophilus 500 MU Cap PO SCH ×2 (08:27→17:01)
[2018-05-05] MEDS: Pantoprazole 40 mg EC Tab PO SCH (08:30)
--- NOTE | 2018-05-05 15:19 | CP.PCM.PN ---
Subjective - Date & Time of Evaluation Date of Evaluation: 05/05/18 - Subjective Subjective: F/U PNA N/C, no cough, no SOB Objective - Vital Signs/Intake and Output Vital Signs (last 24 hours): Temp Pulse Resp BP Pulse Ox 96.9 F L 84 20 155/91 H 97 05/05/18 08:21 05/05/18 08:21 05/05/18 08:21 05/05/18 08:21 05/05/18 08:21 - Medications Medications: Current Medications Abacavir Sulfate (Ziagen) 600 mg PO DAILY [facility] PRN Reason: Protocol Last Admin: 05/05/18 08:30 Dose: 600 mg Carvedilol (Coreg) 6.25 mg PO DAILY [facility] Last Admin: 05/05/18 08:30 Dose: 6.25 mg Fluconazole (Diflucan) 100 mg PO DAILY [facility] PRN Reason: Protocol Last Admin: 05/05/18 08:30 Dose: 100 mg Vancomycin HCl 500 mg/ Sodium (Chloride) 100 mls @ 100 mls/hr IVPB Q12 [facility] PRN Reason: Protocol Last Admin: 05/05/18 08:29 Dose: 100 mls/hr Lactobacillus Acidophilus (Bacid Acidophilus) 1 cap PO BID [facility] Last Admin: 05/05/18 08:27 Dose: 1 cap Lamivudine (Epivir) 300 mg PO DAILY [facility] PRN Reason: Protocol Last Admin: 05/05/18 08:30 Dose: 300 mg Nystatin (Nystatin Oral Susp) 5 ml PO QID [facility] Last Admin: 05/05/18 13:23 Dose: 5 ml Pantoprazole Sodium (Protonix Ec Tab) 40 mg PO DAILY [facility] Last Admin: 05/05/18 08:30 Dose: 40 mg Raltegravir (Isentress) 400 mg PO BID [facility] PRN Reason: Protocol Last Admin: 05/05/18 08:30 Dose: 400 mg Sertraline HCl (Zoloft) 100 mg PO DAILY [facility] Last Admin: 05/05/18 08:30 Dose: 100 mg - Labs Labs: 04/29/18 09:20 04/29/18 09:20 PT 11.4 Seconds (9.8-13.1) 04/26/18 05:30 INR 1.0 (0.9-1.2) 04/26/18 05:30 APTT 29.6 Seconds (25.6-37.1) 04/26/18 05:30 - Constitutional Appears: Chronically Ill - Head Exam Head Exam: NORMAL INSPECTION - Eye Exam Eye Exam: PERRL - ENT Exam ENT Exam: Normal Exam - Neck Exam Neck Exam: Normal Inspection - Respiratory Exam Respiratory Exam: Clear to Ausculation Bilateral - Cardiovascular Exam Cardiovascular Exam: REGULAR RHYTHM - GI/Abdominal Exam GI & Abdominal Exam: Soft, Normal Bowel Sounds - Exam Additional comments: Suprapubic catheter - Extremities Exam Extremities Exam: Normal Inspection - Back Exam Back Exam: NORMAL INSPECTION - Neurological Exam Neurological Exam: Alert, Oriented x3. absent: Motor Sensory Deficit - Psychiatric Exam Psychiatric exam: Anxious - Skin Skin Exam: Warm Assessment and Plan (1) Pneumonia Status: Acute (2) HIV (human immunodeficiency virus infection) Status: Chronic - Assessment and Plan (Free Text) Plan: continue Diflucan, Vanco , ARV's , awaiting final Pathology stains for AFB , Fungi , Pneumocystis
[2018-05-06 06:45] LABS: HEMOGLOBIN 10.1 g/dL (12.0-18.0); MEAN CELL VOLUME 93.1 fl (80.0-94.0); MEAN CORPUSCULAR HEMOGLOBIN 31.7 pg (27.0-31.0); MEAN CORPUSCULAR HGB CONC 34.1 g/dL (33.0-37.0); RBC 3.18 Mil/uL (4.40-5.90); RED CELL DISTRIBUTION WIDTH 18.6 % (11.5-14.5); WHITE BLOOD COUNT 5.4 K/uL (4.8-10.8)
[2018-05-06 07:28] LABS: ALB/GLOB RATIO 0.8 (1.0-2.1); ALBUMIN 3.3 g/dL (3.5-5.0); ALT/SGPT 30 U/L (21-72); AST/SGOT 50 U/L (17-59); BLOOD UREA NITROGEN 18 mg/dl (9-20); CALCIUM 9.4 mg/dL (8.4-10.2); GFR AFRICAN-AMERICAN > 60; GFR NON-AFRICAN AMERICAN > 60
[2018-05-06] MEDS: Pantoprazole 40 mg EC Tab PO SCH (10:09)
[2018-05-06] MEDS: Nystatin 100,000 Units/ml Oral Susp 5 ml UD PO SCH ×4 (10:10→21:07)
[2018-05-06] MEDS: Lactobacillus Acidophilus 500 MU Cap PO SCH ×2 (10:10→16:37)
--- NOTE | 2018-05-06 18:36 | CP.PCM.PN ---
Subjective - Date & Time of Evaluation Date of Evaluation: 05/06/18 Time of Evaluation: 10:20 - Subjective Subjective: F/U PNA No SOB, no cough. Objective - Vital Signs/Intake and Output Vital Signs (last 24 hours): Temp Pulse Resp BP Pulse Ox 97.6 F 88 20 124/85 97 05/06/18 16:52 05/06/18 16:52 05/06/18 16:52 05/06/18 16:52 05/06/18 16:52 Intake and Output: 05/06/18 05/06/18 06:59 18:59 Output Total 1000 Balance -1000 - Medications Medications: Current Medications Abacavir Sulfate (Ziagen) 600 mg PO DAILY [facility] PRN Reason: Protocol Last Admin: 05/06/18 10:11 Dose: 600 mg Carvedilol (Coreg) 6.25 mg PO DAILY [facility] Last Admin: 05/06/18 10:10 Dose: 6.25 mg Fluconazole (Diflucan) 100 mg PO DAILY [facility] PRN Reason: Protocol Last Admin: 05/06/18 10:11 Dose: 100 mg Vancomycin HCl 500 mg/ Sodium (Chloride) 100 mls @ 100 mls/hr IVPB Q12 [facility] PRN Reason: Protocol Last Admin: 05/06/18 10:09 Dose: 100 mls/hr Lactobacillus Acidophilus (Bacid Acidophilus) 1 cap PO BID [facility] Last Admin: 05/06/18 16:37 Dose: 1 cap Lamivudine (Epivir) 300 mg PO DAILY [facility] PRN Reason: Protocol Last Admin: 05/06/18 10:11 Dose: 300 mg Nystatin (Nystatin Oral Susp) 5 ml PO QID [facility] Last Admin: 05/06/18 16:37 Dose: 5 ml Pantoprazole Sodium (Protonix Ec Tab) 40 mg PO DAILY [facility] Last Admin: 05/06/18 10:09 Dose: 40 mg Raltegravir (Isentress) 400 mg PO BID [facility] PRN Reason: Protocol Last Admin: 05/06/18 16:37 Dose: 400 mg Sertraline HCl (Zoloft) 100 mg PO DAILY [facility] Last Admin: 05/06/18 10:09 Dose: 100 mg - Labs Labs: 05/06/18 05:50 05/06/18 05:50 PT 11.4 Seconds (9.8-13.1) 04/26/18 05:30 INR 1.0 (0.9-1.2) 04/26/18 05:30 APTT 29.6 Seconds (25.6-37.1) 04/26/18 05:30 - Constitutional Appears: Chronically Ill - Head Exam Head Exam: NORMAL INSPECTION - Eye Exam Eye Exam: PERRL - ENT Exam ENT Exam: Normal Exam - Neck Exam Neck Exam: Normal Inspection - Respiratory Exam Respiratory Exam: Clear to Ausculation Bilateral - Cardiovascular Exam Cardiovascular Exam: REGULAR RHYTHM - GI/Abdominal Exam GI & Abdominal Exam: Soft, Normal Bowel Sounds - Exam Additional comments: Suprapubic cath - Extremities Exam Extremities Exam: Normal Inspection - Back Exam Back Exam: NORMAL INSPECTION - Neurological Exam Neurological Exam: Alert, Oriented x3. absent: Motor Sensory Deficit - Psychiatric Exam Psychiatric exam: Anxious - Skin Skin Exam: Warm Assessment and Plan (1) Pneumonia Status: Acute (2) HIV (human immunodeficiency virus infection) Status: Chronic - Assessment and Plan (Free Text) Plan: Continue Vanco, Diflucan and rest of Tx.
[2018-05-07] MEDS: Pantoprazole 40 mg EC Tab PO SCH (09:43)
[2018-05-07] MEDS: Nystatin 100,000 Units/ml Oral Susp 5 ml UD PO SCH ×4 (09:43→22:16)
[2018-05-07] MEDS: Lactobacillus Acidophilus 500 MU Cap PO SCH ×2 (10:02→16:08)
--- NOTE | 2018-05-07 14:25 | CP.PCM.PN ---
Subjective - Date & Time of Evaluation Date of Evaluation: 05/07/18 Time of Evaluation: 12:45 - Subjective Subjective: F/U PNA no SOB, no RODRIGUEZ, no cough, no Chest congestion Objective - Vital Signs/Intake and Output Vital Signs (last 24 hours): Temp Pulse Resp BP Pulse Ox 97.2 F L 78 20 148/89 98 05/07/18 09:00 05/07/18 09:42 05/07/18 09:00 05/07/18 09:42 05/07/18 09:00 - Medications Medications: Current Medications Abacavir Sulfate (Ziagen) 600 mg PO DAILY [facility] PRN Reason: Protocol Last Admin: 05/07/18 09:54 Dose: 600 mg Carvedilol (Coreg) 6.25 mg PO DAILY [facility] Last Admin: 05/07/18 09:42 Dose: 6.25 mg Vancomycin HCl 500 mg/ Sodium (Chloride) 100 mls @ 100 mls/hr IVPB Q12 [facility] PRN Reason: Protocol Last Admin: 05/07/18 09:52 Dose: 100 mls/hr Lactobacillus Acidophilus (Bacid Acidophilus) 1 cap PO BID [facility] Last Admin: 05/07/18 10:02 Dose: 1 cap Lamivudine (Epivir) 300 mg PO DAILY [facility] PRN Reason: Protocol Last Admin: 05/07/18 09:43 Dose: 300 mg Nystatin (Nystatin Oral Susp) 5 ml PO QID [facility] Last Admin: 05/07/18 13:00 Dose: 5 ml Pantoprazole Sodium (Protonix Ec Tab) 40 mg PO DAILY [facility] Last Admin: 05/07/18 09:43 Dose: 40 mg Raltegravir (Isentress) 400 mg PO BID [facility] PRN Reason: Protocol Last Admin: 05/07/18 09:42 Dose: 400 mg Sertraline HCl (Zoloft) 100 mg PO DAILY [facility] Last Admin: 05/07/18 09:54 Dose: 100 mg - Labs Labs: 05/06/18 05:50 05/06/18 05:50 PT 11.4 Seconds (9.8-13.1) 04/26/18 05:30 INR 1.0 (0.9-1.2) 04/26/18 05:30 APTT 29.6 Seconds (25.6-37.1) 04/26/18 05:30 - Constitutional Appears: Chronically Ill - Head Exam Head Exam: NORMAL INSPECTION - Eye Exam Eye Exam: PERRL - ENT Exam ENT Exam: Normal Exam - Neck Exam Neck Exam: Normal Inspection - Respiratory Exam Respiratory Exam: Clear to Ausculation Bilateral - Cardiovascular Exam Cardiovascular Exam: REGULAR RHYTHM - GI/Abdominal Exam GI & Abdominal Exam: Soft, Normal Bowel Sounds - Exam Additional comments: Suprapubic Catheter - Extremities Exam Extremities Exam: Normal Inspection - Back Exam Back Exam: NORMAL INSPECTION - Neurological Exam Neurological Exam: Alert, Oriented x3. absent: Motor Sensory Deficit - Psychiatric Exam Psychiatric exam: Anxious - Skin Skin Exam: Warm Assessment and Plan (1) Pneumonia Status: Acute (2) HIV (human immunodeficiency virus infection) Status: Chronic - Assessment and Plan (Free Text) Plan: awaiting final Path smear report for AFB, Pneumocystis, Fungi, continue ART and Atb
[2018-05-08 06:14] LABS: HEMOGLOBIN 10.5 g/dL (12.0-18.0); MEAN CELL VOLUME 94.7 fl (80.0-94.0); MEAN CORPUSCULAR HEMOGLOBIN 31.8 pg (27.0-31.0); MEAN CORPUSCULAR HGB CONC 33.5 g/dL (33.0-37.0); RBC 3.3 Mil/uL (4.40-5.90); RED CELL DISTRIBUTION WIDTH 18.7 % (11.5-14.5); WHITE BLOOD COUNT 5.5 K/uL (4.8-10.8)
[2018-05-08 06:39] LABS: BLOOD UREA NITROGEN 24 mg/dl (9-20); CALCIUM 9.4 mg/dL (8.4-10.2); GFR AFRICAN-AMERICAN > 60; GFR NON-AFRICAN AMERICAN > 60
[2018-05-08 07:56] VITALS: O2SAT 97
[2018-05-08] MEDS: Nystatin 100,000 Units/ml Oral Susp 5 ml UD PO SCH ×3 (09:26→16:24)
[2018-05-08] MEDS: Pantoprazole 40 mg EC Tab PO SCH (09:26)
[2018-05-08] MEDS: Lactobacillus Acidophilus 500 MU Cap PO SCH ×2 (09:27→16:23)
--- NOTE | 2018-05-08 11:19 | CP.PCM.PCO ---
Assessment/Plan - Assessment/Plan Assessment (Free Text): Pt stable, pathology reports and cultures received and reviewed with Dr. Vital and Dr. Dickinson. Pt is cleared for d/c to [facility] by both physicians. Pt stable, will require contact isolation for history of Maggie Auris. Pt to resume meds as per med rec.
[2018-05-08 15:54] VITALS: BP 129/81; PULSE 82; RESP 18; TEMP 97.9
--- NOTE | 2018-05-08 18:07 | CP.PCM.DIS ---
Provider - Provider Date of Admission: 04/15/18 01:18 Attending physician: Antonio Dickinson MD Primary care physician: Alex Flores Diagnosis - Discharge Diagnosis (1) Pneumonia Status: Acute Priority: High (2) HIV (human immunodeficiency virus infection) Status: Chronic Priority: High Hospital Course - Lab Results Lab Results: Micro Results 05/05/18 06:30 Sputum Induced Gram Stain - Final 05/05/18 06:30 Sputum Induced Sputum Culture - Final NORMAL ORAL CIERA 04/27/18 16:45 Bronchial Washings Fungal Culture - Preliminary NO FUNGUS GROWTH IN 1 WEEK. 04/28/18 05:40 Blood Blood Culture - Final NO GROWTH AFTER 5 DAYS 04/27/18 16:45 Other: Please Indicate Gram Stain - Final 04/27/18 16:45 Other: Please Indicate Body Fluid Culture - Final Streptococcus Viridans 04/24/18 19:39 Urine,Suprapubic Urine Culture - Final No Growth (<1,000 CFU/ML) 04/21/18 05:35 Blood Blood Culture - Final NO GROWTH AFTER 5 DAYS 04/21/18 05:35 Blood Gram Stain - Final TEST NOT PERFORMED 04/20/18 05:55 Blood Blood Culture - Final NO GROWTH AFTER 5 DAYS 04/21/18 12:00 Stool Stool Culture - Final NO SALMONELLA, SHIGELLA OR CAMPYLOBACTER ISOLATED. 04/21/18 12:00 Urine,Suprapubic Urine Culture - Final Yeast Species 04/17/18 09:14 Blood Blood Culture - Final NO GROWTH AFTER 5 DAYS 04/17/18 09:14 Blood Gram Stain - Final TEST NOT PERFORMED 04/17/18 09:14 Blood Blood Culture - Final NO GROWTH AFTER 5 DAYS 04/17/18 09:14 Blood Gram Stain - Final TEST NOT PERFORMED 04/15/18 00:05 Urine Urine Culture - Final Yeast Species 04/15/18 00:05 Blood Blood Culture - Final Maggie Species 04/15/18 00:05 Blood Gram Stain - Final 04/15/18 00:20 Blood S.aureus & Coag-Neg Staph PNA FISH - Final 04/15/18 00:20 Blood Blood Culture - Final Maggie Species 04/15/18 00:20 Blood Gram Stain - Final 04/17/18 15:41 Urine,Suprapubic Urine Culture - Final Yeast Species Most Recent Lab Values WBC 5.5 K/uL (4.8-10.8) 05/08/18 05:50 RBC 3.30 Mil/uL (4.40-5.90) L 05/08/18 05:50 Hgb 10.5 g/dL (12.0-18.0) L 05/08/18 05:50 Hct 31.3 % (35.0-51.0) L 05/08/18 05:50 MCV 94.7 fl (80.0-94.0) H 05/08/18 05:50 MCH 31.8 pg (27.0-31.0) H 05/08/18 05:50 MCHC 33.5 g/dL (33.0-37.0) 05/08/18 05:50 RDW 18.7 % (11.5-14.5) H 05/08/18 05:50 Plt Count 382 K/uL (130-400) 05/08/18 05:50 MPV 7.1 fl (7.2-11.7) L 04/26/18 05:30 Neut % (Auto) 54.6 % (50.0-75.0) 04/26/18 05:30 Lymph % (Auto) 30.9 % (20.0-40.0) 04/26/18 05:30 Appling % (Auto) 11.8 % (0.0-10.0) H 04/26/18 05:30 Eos % (Auto) 1.8 % (0.0-4.0) 04/26/18 05:30 Baso % (Auto) 0.9 % (0.0-2.0) 04/26/18 05:30 Neut # (Auto) 3.7 K/uL (1.8-7.0) 04/26/18 05:30 Lymph # (Auto) 2.1 K/uL (1.0-4.3) 04/26/18 05:30 Appling # (Auto) 0.8 K/uL (0.0-0.8) 04/26/18 05:30 Eos # (Auto) 0.1 K/uL (0.0-0.7) 04/26/18 05:30 Baso # (Auto) 0.1 K/uL (0.0-0.2) 04/26/18 05:30 ESR 105 mm/hr (0-20) H 04/16/18 05:45 PT 11.4 Seconds (9.8-13.1) 04/26/18 05:30 INR 1.0 (0.9-1.2) 04/26/18 05:30 APTT 29.6 Seconds (25.6-37.1) 04/26/18 05:30 Sodium 135 mmol/l (132-148) 05/08/18 05:50 Potassium 4.1 MMOL/L (3.6-5.0) 05/08/18 05:50 Chloride 99 mmol/L (98-107) 05/08/18 05:50 Carbon Dioxide 26 mmol/L (22-30) 05/08/18 05:50 Anion Gap 14 (10-20) 05/08/18 05:50 BUN 24 mg/dl (9-20) H 05/08/18 05:50 Creatinine 0.8 mg/dl (0.8-1.5) 05/08/18 05:50 Est GFR ( Amer) > 60 05/08/18 05:50 Est GFR (Non-Af Amer) > 60 05/08/18 05:50 POC Glucose (mg/dL) 125 mg/dL (65-110) H 04/21/18 16:45 Random Glucose 87 mg/dL (75-110) 05/08/18 05:50 Lactic Acid 1.1 MMOL/L (0.7-2.1) 04/15/18 00:05 Calcium 9.4 mg/dL (8.4-10.2) 05/08/18 05:50 Total Bilirubin 0.3 mg/dl (0.2-1.3) 05/06/18 05:50 AST 50 U/L (17-59) 05/06/18 05:50 ALT 30 U/L (21-72) 05/06/18 05:50 Alkaline Phosphatase 115 U/L (38-126) 05/06/18 05:50 C-Reactive Protein 73.50 mg/L (0.0-9.9) H 04/15/18 07:49 Total Protein 7.3 G/DL (6.3-8.2) 05/06/18 05:50 Albumin 3.3 g/dL (3.5-5.0) L 05/06/18 05:50 Globulin 4.0 gm/dL (2.2-3.9) H 05/06/18 05:50 Albumin/Globulin Ratio 0.8 (1.0-2.1) L 05/06/18 05:50 Triglycerides 99 mg/DL (0-149) 04/15/18 07:49 Cholesterol 127 mg/dL (0-199) 04/15/18 07:49 LDL Cholesterol Direct 76 mg/dL (0-129) 04/15/18 07:49 HDL Cholesterol 19 MG/DL (30-70) L 04/15/18 07:49 Procalcitonin 0.12 NG/ML (0.19-0.49) L 04/16/18 05:45 Thyroxine (T4) 3.73 ug/dl (5.5-11.0) L 04/15/18 07:49 TSH 3rd Generation 3.42 mIU/ML (0.46-4.68) 04/15/18 07:49 Urine Color Yellow (YELLOW) 04/15/18 00:05 Urine Clarity Cloudy (Clear) 04/15/18 00:05 Urine pH 7.0 (5.0-8.0) 04/15/18 00:05 Ur Specific Moriarty 1.019 (1.003-1.030) 04/15/18 00:05 Urine Protein 100 mg/dL (NEGATIVE) 04/15/18 00:05 Urine Glucose (UA) Neg mg/dL (Normal) 04/15/18 00:05 Urine Ketones Negative mg/dL (NEGATIVE) 04/15/18 00:05 Urine Blood Large (NEGATIVE) 04/15/18 00:05 Urine Nitrate Negative (NEGATIVE) 04/15/18 00:05 Urine Bilirubin Negative (NEGATIVE) 04/15/18 00:05 Urine Urobilinogen 0.2-1.0 mg/dL (0.2-1.0) 04/15/18 00:05 Ur Leukocyte Esterase Mod Karen/uL (Negative) 04/15/18 00:05 Urine RBC (Auto) 1234 /hpf (0-3) H 04/15/18 00:05 Urine Microscopic WBC 72 /hpf (0-5) H 04/15/18 00:05 Calcium Oxalate Crystal Few /hpf (<OCC) H 04/15/18 00:05 Urine Bacteria Occ (<OCC) H 04/15/18 00:05 Absolute Lymphs (Flow) 1481 Cells/mcL (850-3900) 04/15/18 11:58 % CD4 Cells 12 Percent (30-61) L 04/15/18 11:58 Absolute CD4 Count 184 Cells/mcL (490-1740) L 04/15/18 11:58 T-Help/Suppress Ratio 0.20 Ratio (0.86-5.00) L 04/15/18 11:58 % CD8 Cells 63 Percent (12-42) H 04/15/18 11:58 Absolute CD8 Count 933 Cells/mcL (180-1170) 04/15/18 11:58 HLA-B*5701 Negative 04/17/18 10:07 C. difficile Ag & Toxin Negative (NEGATIVE) 04/21/18 12:00 Cryptococcus Ag Negative (NEGATIVE) 04/17/18 10:07 Hepatitis A IgM Ab Negative (NEGATIVE) 04/15/18 01:18 Hep Bs Antigen Negative (NEGATIVE) 04/15/18 01:18 Hep B Core IgM Ab Negative (NEGATIVE) 04/15/18 01:18 Hepatitis C Antibody Negative (NEGATIVE) 04/15/18 01:18 HIV-1 Ab Rapid Screen Ab reactive (NON REAC) H 04/15/18 15:20 HIV-1 RNA Qnt (RT-PCR) 2.06 (Not Detected) H 04/17/18 10:07 HIV-1 Genotyping Detected H 04/17/18 10:12 Influenza Typ A,B (EIA) Negative for flu a/b (NEGATIVE) 04/15/18 00:30 Ur L.pneumophila Ag Negative (NEGATIVE) 04/15/18 10:00 Ur Strep pneumoniae Ag Not detected 04/15/18 10:25 Discharge Exam - Head Exam Head Exam: NORMAL INSPECTION Discharge Plan - Discharge Medications Prescriptions: Clindamycin [Cleocin] 300 mg PO Q12 #10 cap - Follow Up Plan Condition: FAIR Disposition: REHAB FACILITY/REHAB UNIT Instructions: Pneumonia, Adult (DC), Urinary Retention (DC) Referrals: Ryan Lockett MD [Staff Provider] - Alex Flores MD [Primary Care Provider] - Antonio Dickinson MD [Staff Provider] -
--- NOTE | 2018-05-13 22:11 | BRONCH ---
PROCEDURE DATE: 04/27/2018 PREOPERATIVE DIAGNOSES: 1. Bilateral lung infiltrates. 2. Acquired immunodeficiency syndrome. PROCEDURE: Bronchoscopy. DESCRIPTION OF PROCEDURE: Bronchoscopy was done in the endoscopy room. The patient was intubated by anesthesiologist. Through special swivel adapter, the bronchoscope was introduced through the ET tube and advanced to the distal part of the trachea. The mucosa showing mild hyperemia, vessel engorgement. The micheal was sharp and in the midline. Then, the bronchoscope was introduced in the right main stem bronchi and advanced to the right upper lobe, then withdrawn and advanced through the bronchus intermedius into the right middle lobe, then withdrawn and advanced into the right lower lobe. In all the lobes, the mucosa in all the segments showing mild hyperemia, vessel engorgement, no endobronchial lesion or extrinsic compression. Then, the bronchoscope was withdrawn and advanced to the left main stem bronchi into the left upper lobe and then withdrawn and advanced into the left lower lobe. In both lobes, the mucosa showing mild hyperemia, vessel engorgement, no endobronchial lesion or extrinsic compression. At that time under fluoroscopic guidance, the bronchoscope was advanced into the lingular segment, and transbronchial biopsies were taken. There was minimal bleeding that subsided spontaneously. FINAL DIAGNOSES: 1. Bilateral lung infiltrates. 2. Acquired immunodeficiency syndrome. COMPLICATIONS: None. At the end of the procedure, the patient was in a stable condition. The bronchial biopsies and washings were forwarded to the Lab and Pathology. Antonio Dickinson MD
--- NOTE | 2018-05-14 13:52 | PQF ---
PROVIDER RESPONSE TEXT: Bacterial PNA- streptococcus viridans as per bronchial washings REVIEWER QUERY TEXT: Pneumonia Specificity Pneumonia is documented in the Medical Record. AFTER WORKUP specify the type of pneumonia and the ca usative organism (includes probable or suspected) Such as: Type: -- Aspiration pneumonia (please also specify the aspirate) -- Bacterial (please document suspected or probable organism) -- Bronchopneumonia (please document suspected or probable organism) -- Interstitial pneumonia -- Organizing pneumonia / BOOP -- Pneumonia with influenza, radha flu, or H1N1 flu -- PCP -- Tuberculosis, pulmonary -- Viral -- Other, please specify The patient's Clinical Indicators include: Patient recently diagnosed with "HIV and Pneumonia" at a local hospital presents with temp of 102 at home, RODRIGUEZ, chills, dry cough and weakness. WBC 10.8. Sputum CS pending. Treated with Clindamycin IV a nd Bactrim PO. CT CHEST: Nonspecific bilateral patchy interstitial lung disease -with a reticular nodular component . There are small cystic emphysematous changes seen peripherally. There are left traction bronchiect asis changes that blend with coalescing left lung consolidation and also blend with left pleural re action. These latter findings are in the left mid to lower lung zone. Mixed pathologies are suspect -for example chronic interstitial lung disease, bronchopneumonia. Underlying neoplasm not excluded. Query created by: Vi Khan on 04/16/2018 8:53 AM Electronically signed by: Antonio Dickinson MD 05/14/2018 1:49 PM
== END 2018-05-08 18:11 | DRG 975 ==
LOC: H.ER 23:13 → H.ERHOLD 04-15 01:18 → H.MEDSURG1 04-15 03:19
PROVIDERS: ADMIT Internal Medicine Pulmonary Disease; ATTEND Internal Medicine Pulmonary Disease
PROC: 0BBG8ZX Excision of Left Upper Lung Lobe, Via Natural or Artificial Opening Endoscopic, Diagnostic (ICD-10-PCS; principal; 2018-04-27 12:30)
DX: B20 Human immunodeficiency virus [HIV] disease (principal); J15.4 Pneumonia due to other streptococci; T83.518A Infection and inflammatory reaction due to other urinary catheter, initial encounter; B37.49 Other urogenital candidiasis; J47.0 Bronchiectasis with acute lower respiratory infection; J84.9 Interstitial pulmonary disease, unspecified; J90 Pleural effusion, not elsewhere classified; N13.30 Unspecified hydronephrosis; R64 Cachexia; B49 Unspecified mycosis; E86.0 Dehydration; I10 Essential (primary) hypertension; N28.1 Cyst of kidney, acquired; N40.0 Benign prostatic hyperplasia without lower urinary tract symptoms; F32.9 Major depressive disorder, single episode, unspecified; F41.9 Anxiety disorder, unspecified; R00.0 Tachycardia, unspecified; F45.9 Somatoform disorder, unspecified; M62.81 Muscle weakness (generalized); Z79.02 Long term (current) use of antithrombotics/antiplatelets; Z87.01 Personal history of pneumonia (recurrent); Z87.440 Personal history of urinary (tract) infections; Z87.891 Personal history of nicotine dependence; Z79.899 Other long term (current) drug therapy

== ENCOUNTER 2018-08-26 13:04 | Inpatient (IN) | payer MEDICARE ==
[2018-08-26 13:09] VITALS: BMI 19.4
[2018-08-26] MEDS ORDERED: Sodium Chloride 0.9% 1,000 ML IV STA ×2 (13:32→15:26)
[2018-08-26 14:01] LABS: VENOUS BLOOD GAS BASE EXCESS 1.2 mmol/L (0.0-2.0); VENOUS BLOOD GAS PCO2 44 mmHg (40-60); VENOUS BLOOD GAS PO2 23 mm/Hg (30-55); VENOUS BLOOD PH 7.39 (7.32-7.43)
[2018-08-26 14:06] LABS: INR 1.1
[2018-08-26 14:09] LABS: BASO % 0.4 % (0.0-2.0); EOS % 0.2 % (0.0-4.0); HEMOGLOBIN 11.7 g/dL (12.0-18.0); LYMPH # 1.8 K/uL (1.0-4.3); LYMPH % 14.8 % (20.0-40.0); MEAN CELL VOLUME 87.6 fl (80.0-94.0); MEAN CORPUSCULAR HEMOGLOBIN 28.7 pg (27.0-31.0); MEAN CORPUSCULAR HGB CONC 32.7 g/dL (33.0-37.0); MEAN PLATELET VOLUME 7.2 fl (7.2-11.7); MONO # 1.8 K/uL (0.0-0.8); MONO % 14.6 % (0.0-10.0); NEUT # 8.5 K/uL (1.8-7.0); NRBC % 0.1 % (0.0-0.0); PARTIAL THROMBOPLASTIN TIME 34.5 Seconds (25.6-37.1); RBC 4.08 Mil/uL (4.40-5.90); RED CELL DISTRIBUTION WIDTH 15.3 % (11.5-14.5); WHITE BLOOD COUNT 12.2 K/uL (4.8-10.8)
[2018-08-26 14:12] LABS: ALB/GLOB RATIO 0.9 (1.0-2.1); ALT/SGPT 16 U/L (21-72); AST/SGOT 27 U/L (17-59); BLOOD UREA NITROGEN 20 mg/dl (9-20); CALCIUM 9.2 mg/dL (8.4-10.2); GFR NON-AFRICAN AMERICAN > 60
[2018-08-26 14:22] LABS: B-TYPE NATRIURETIC PEPTIDE 4420 pg/ml (0-900)
--- NOTE | 2018-08-26 14:52 | ED PDOC ---
Syncope/Near Syncope/Dizziness Time Seen by Provider: 08/26/18 13:30 Chief Complaint (Nursing): Dizziness/Lightheaded Chief Complaint (Provider): Dizziness/Lightheaded History Per: Patient History/Exam Limitations: no limitations Onset/Duration Of Symptoms: Days Current Symptoms Are (Timing): Still Present Additional Complaint(s): Sebas Martínez is a 68 year old male with a past medical history of hypertension, COPD, and anxiety who was brought to the ED by EMS for evaluation after a near syncopal episode while in the street. Dr. Doyle was called prior to arrival and he requested that patient receive workup and be admitted to hospitalist. Patient states that for the past 2 days he has felt dizzy and unsteady on his feet while walking. While on the street the symptoms increased in severity so he sat down and called ambulance. He was admitted two months ago for pneumonia and prostate problems causing a UTI. Patient denies any chest pain, shortness of breath, or syncope. PMD: Dr. Doyle Past Medical History Reviewed: Historical Data, Nursing Documentation, Vital Signs Vital Signs: Last Vital Signs Temp 98.2 F 08/26/18 13:09 Pulse 119 H 08/26/18 13:09 Resp 20 08/26/18 13:09 BP 123/92 H 08/26/18 13:09 Pulse Ox 98 08/26/18 13:09 - Medical History PMH: Anxiety, COPD, Depression, HIV, HTN, Pneumonia Denies: Chronic Kidney Disease - Surgical History Surgical History: No Surg Hx - Family History Family History: States: Unknown Family Hx - Social History Current smoker - smoking cessation education provided: No Alcohol: None Drugs: Denies - Home Medications Home Medications: Ambulatory Orders Medication Instructions Recorded RX: Carvedilol [Coreg] 6.25 mg PO Q12 04/15/18 RX: Clopidogrel [Plavix] 75 mg PO DAILY 04/15/18 RX: Losartan [Cozaar] 100 mg PO DAILY 04/15/18 RX: Pantoprazole [Protonix EC Tab] 40 mg PO DAILY 04/15/18 RX: Sertraline [Zoloft] 100 mg PO DAILY 04/15/18 RX: Lactobacillus Acidophilus 1 cap PO BID cap 05/08/18 [Bacid Acidophilus] Abacavir/Dolutegravir/Lamivudi 1 tab PO DAILY 08/26/18 [Triumeq 600-50-300 mg Tablet] Tamsulosin [Flomax] 0.4 mg PO HS 08/26/18 - Allergies Allergies/Adverse Reactions: Allergies Allergy/AdvReac Type Severity Reaction Status Date / Time No Known Allergies Allergy Verified 08/26/18 13:09 Review of Systems ROS Statement: Except As Marked, All Systems Reviewed And Found Negative Cardiovascular: Negative for: Chest Pain Respiratory: Negative for: Shortness of Breath Neurological: Positive for: Dizziness, Other (near syncope) Physical Exam - Reviewed Nursing Documentation Reviewed: Yes Vital Signs Reviewed: Yes - Physical Exam Appears: Positive for: Well (appearing), Non-toxic, No Acute Distress Head Exam: Positive for: ATRAUMATIC, NORMAL INSPECTION, NORMOCEPHALIC Skin: Positive for: Normal Color, Warm, DRY Eye Exam: Positive for: EOMI, Normal appearance, PERRL ENT: Positive for: Normal ENT Inspection Neck: Positive for: Normal, Painless ROM Cardiovascular/Chest: Positive for: Regular Rate, Rhythm. Negative for: Murmur Respiratory: Positive for: Normal Breath Sounds. Negative for: Respiratory Distress Gastrointestinal/Abdominal: Positive for: Normal Exam, Soft. Negative for: Tenderness Back: Positive for: Normal Inspection. Negative for: L CVA Tenderness, R CVA Tenderness Extremity: Positive for: Normal ROM. Negative for: Deformity, Swelling Neurologic/Psych: Positive for: Alert, web content executive II-XII (intact), Oriented. Negative for: Motor/Sensory Deficits - Laboratory Results Result Diagrams: 08/26/18 13:57 08/26/18 13:57 - ECG O2 Sat by Pulse Oximetry: 98 (RA) Pulse Ox Interpretation: Normal Medical Decision Making Medical Decision Making: Time: 13:57 A/P: workup for near syncopal episode --EKG, labs, brain CT --Will contact hospitalist and Dr. 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 Provider Scribe Attestation: All medical record entries made by the Scribe were at my direction and personally dictated by me. I have reviewed the chart and agree that the record accurately reflects my personal performance of the history, physical exam, medical decision making, and the department course for this patient. I have also personally directed, reviewed, and agree with the discharge instructions and disposition. 1500 EKG shows Wellen's pattern but no ST elevation. Labs show troponin of 0.03. Spoke with Hospitalist, Dr. Hernandez and pt to be admitted. CT brain pending. ASA given. Spoke with PMD, Dr. Doyle who states that the pt is HIV positive. Unsure of viral load/CD4 count. Infectious disease consult placed. Disposition - Clinical Impression Clinical Impression: Dizziness - Disposition Disposition Time: 15:00 Condition: FAIR
--- NOTE | 2018-08-26 15:30 | CT ---
Date of service: 08/26/2018 PROCEDURE: CT HEAD WITHOUT CONTRAST. HISTORY: dizziness COMPARISON: 04/17/2018 TECHNIQUE: Axial computed tomography images were obtained through the head/brain without intravenous contrast. Radiation dose: Total exam DLP = 823.89 mGy-cm. This CT exam was performed using one or more of the following dose reduction techniques: Automated exposure control, adjustment of the mA and/or kV according to patient size, and/or use of iterative reconstruction technique. FINDINGS: HEMORRHAGE: No intracranial hemorrhage. BRAIN: No mass effect or edema. Generalized cerebral atrophy and mild chronic appearing microangiopathic changes in the deep white matter are noted. VENTRICLES: Unremarkable. No hydrocephalus. CALVARIUM: Unremarkable. PARANASAL SINUSES: Unremarkable as visualized. No significant inflammatory changes. MASTOID AIR CELLS: Unremarkable as visualized. No inflammatory changes. OTHER FINDINGS: Vertebrobasilar atherosclerotic vascular calcifications-similar. IMPRESSION: No interval intracranial hemorrhage or mass effect. Chronic appearing mild microvascular ischemic changes deep white matter. Generalized cerebral atrophy. Findings similar. No interval pathology noted.
--- NOTE | 2018-08-26 16:42 | CP.PCM.HP ---
<Jong Encarnacion - Last Filed: 08/26/18 18:34> History of Present Illness - History of Present Illness History of Present Illness: CC: Lightheadedness and unsteady gait 68 Y/O Male with PMHx of HTN, Prostate problems, anxiety, HIV, h/o admission on April for PNA. Patient presents to the ED brought by EMS after a near syncopal episode in the street, patient reports he has been feeling lightheaded and weak on his legs since yesterday in the evening, he went to bed and when he woke up felt well and went to the market and approximately at 10 AM he was feeling lightheaded again and with an unsteady gait and felt to the floor while "helped himself to the floor", he denies LOC before, duirng or after the episode, denies hitting his head. Patient also denies feeling chest pain, MEDEIROS, abdominal pain, SOB, nausea, palpitations, or other symtoms at time of the episode. Patient reports he was hospitalized for several days in April due to PNA and upon discharge he required PT due to weakness and unsteady gait, patient states he recovered after that. Patient denies chest pain, dizziness, MEDEIROS, palpitations, nausea, fever, chills or other acute symptoms at time of this encounter. ROS: 12 point systems reviewed and found unremarkable except as per HPI PMD: Dr Doyle PMHx: HTN, HIV, anxiety, PNA in april, Prostate problems FMHx: Denied Allergies: NKA SxHx: Prostate Bx SocialHx: Denies ETOH/Rec drug use, Former smoker quit 5 years ago. ED Course: VS: BP 140/80, HR 90, T97, RR [address]: No acute intracranial hemorrhage, no interval pathology. EKG: Inferior GA age undetermined TroponinI:first set negative Present on Admission - Present on Admission Any Indicators Present on Admission: No History of DVT/PE: No History of Uncontrolled Diabetes: No Urinary Catheter: No Decubitus Ulcer Present: No Past Patient History - Past Medical History & Family History Past Medical History?: Yes - Past Social History Alcohol: None Drugs: Denies - CARDIAC Hx Hypertension: Yes - PULMONARY Hx Chronic Obstructive Pulmonary Disease (COPD): Yes Hx Pneumonia: Yes - NEUROLOGICAL Hx Neurological Disorder: No - HEENT Hx HEENT Problems: No - RENAL Hx Chronic Kidney Disease: No - ENDOCRINE/METABOLIC Hx Endocrine Disorders: No - HEMATOLOGICAL/ONCOLOGICAL Hx Human Immunodeficiency Virus (HIV): Yes - INTEGUMENTARY Hx Dermatological Problems: No - MUSCULOSKELETAL/RHEUMATOLOGICAL Hx Musculoskeletal Disorders: Yes (generalized muscle weakness) Hx Falls: No - GENITOURINARY/GYNECOLOGICAL Hx Genitourinary Disorders: Yes (urinary retention) Hx Prostate Problems: Yes (Enlargement) Hx Urinary Tract Infection: Yes Other/Comment: Suprapubic cathether - PSYCHIATRIC Hx Anxiety: Yes Hx Depression: Yes - SURGICAL HISTORY Hx Surgeries: Yes - ANESTHESIA Hx Anesthesia: Yes Hx Anesthesia Reactions: No Meds Allergies/Adverse Reactions: Allergies Allergy/AdvReac Type Severity Reaction Status Date / Time No Known Allergies Allergy Verified 08/26/18 13:09 Physical Exam - Constitutional Appears: No Acute Distress - Head Exam Head Exam: ATRAUMATIC, NORMOCEPHALIC - Eye Exam Eye Exam: EOMI, PERRL - ENT Exam ENT Exam: Mucous Membranes Moist - Respiratory Exam Respiratory Exam: Clear to Auscultation Bilateral. absent: Wheezes - Cardiovascular Exam Cardiovascular Exam: RRR, +S1, +S2 - GI/Abdominal Exam GI & Abdominal Exam: Normal Bowel Sounds, Soft. absent: Mass, Tenderness - Extremities Exam Extremities exam: Negative for: pedal edema - Neurological Exam Neurological exam: Alert, CN II-XII Intact, Oriented x3 Additional comments: NO nystagmus, no motor deficit noted - Psychiatric Exam Psychiatric exam: Normal Affect, Normal Mood - Skin Skin Exam: Normal Color, Warm Results - Vital Signs Recent Vital Signs: Last Vital Signs Temp 97 F L 08/26/18 15:10 Pulse 98 H 08/26/18 16:18 Resp 19 08/26/18 16:18 BP 140/87 08/26/18 16:18 Pulse Ox 98 08/26/18 16:18 - Labs Result Diagrams: 08/26/18 13:57 08/26/18 13:57 Labs: Laboratory Results - last 24 hr 08/26/18 08/26/18 08/26/18 13:55 13:57 13:57 WBC 12.2 H D RBC 4.08 L Hgb 11.7 L Hct 35.7 MCV 87.6 D MCH 28.7 MCHC 32.7 L RDW 15.3 H Plt Count 356 MPV 7.2 Neut % (Auto) 70.0 Lymph % (Auto) 14.8 L Braxton % (Auto) 14.6 H Eos % (Auto) 0.2 Baso % (Auto) 0.4 Neut # (Auto) 8.5 H Lymph # (Auto) 1.8 Braxton # (Auto) 1.8 H Eos # (Auto) 0.0 Baso # (Auto) 0.0 PT INR APTT pO2 23 L VBG pH 7.39 VBG pCO2 44 VBG HCO3 24.3 VBG Total CO2 28.0 VBG O2 Sat (Calc) 46.8 VBG Base Excess 1.2 VBG Potassium 4.0 Sodium 132.0 135 Chloride 100.0 101 Glucose 98 Lactate 2.4 H FiO2 21.0 Potassium 4.3 Carbon Dioxide 24 Anion Gap 14 BUN 20 Creatinine 1.1 Est GFR ( Amer) > 60 Est GFR (Non-Af Amer) > 60 Random Glucose 98 Calcium 9.2 Total Bilirubin 0.8 AST 27 ALT 16 L D Alkaline Phosphatase 111 Troponin I 0.0310 NT-Pro-B Natriuret Pep 4420 H Total Protein 8.3 H Albumin 4.0 Globulin 4.2 H Albumin/Globulin Ratio 0.9 L Venous Blood Potassium 4.0 08/26/18 13:57 WBC RBC Hgb Hct MCV MCH MCHC RDW Plt Count MPV Neut % (Auto) Lymph % (Auto) Braxton % (Auto) Eos % (Auto) Baso % (Auto) Neut # (Auto) Lymph # (Auto) Braxton # (Auto) Eos # (Auto) Baso # (Auto) PT 13.0 INR 1.1 APTT 34.5 pO2 VBG pH VBG pCO2 VBG HCO3 VBG Total CO2 VBG O2 Sat (Calc) VBG Base Excess VBG Potassium Sodium Chloride Glucose Lactate FiO2 Potassium Carbon Dioxide Anion Gap BUN Creatinine Est GFR ( Amer) Est GFR (Non-Af Amer) Random Glucose Calcium Total Bilirubin AST ALT Alkaline Phosphatase Troponin I NT-Pro-B Natriuret Pep Total Protein Albumin Globulin Albumin/Globulin Ratio Venous Blood Potassium Assessment & Plan - Assessment and Plan (Free Text) Assessment: 68 Y/O Male with PMHx of HTN, Prostate problems, anxiety, HIV, h/o admission on April for PNA, who presented to the ED brought by EMS after a near syncopal episode in the street without LOC, admitted to telemetry for observation and evaluation of near syncopal episode. Plan: 1. Near syncopal episode -Telemetry -EKG shows inferior infarct age undeteremine -CT of Head: No acute interval changes -Serial Troponin I, x 2, fisrt set WNL, pending second -Orthostatic VS and BP once -CPK stat, pending results -UA stat, pending results -HbA1C, f/u in AM -Lipid Panel 2.CAD --EKG shows inferior infarct age undetermined -Lipid panel -HbA1C -c/w Plavix --C/w Coreg 3.HTN -Stable -Monitor BP -c/w Losartan 4.HIV -C/w Trumeq PO QD 5.BPH -Hold Flomax 6.Anxiety disorder -Zoloft: Hold for now DVT prophylaxis Lovenox 40 SC QD Code status Full code <Yousif Hernandez - Last Filed: 08/27/18 04:22> Results - Vital Signs Recent Vital Signs: Last Vital Signs Temp 99.9 F H 08/27/18 01:09 Pulse 103 H 08/27/18 01:09 Resp 18 08/27/18 01:09 BP 129/72 08/27/18 01:09 Pulse Ox 95 08/27/18 01:09 - Labs Result Diagrams: 08/26/18 13:57 08/26/18 13:57 Labs: Laboratory Results - last 24 hr 08/26/18 08/26/18 08/26/18 13:55 13:57 13:57 WBC 12.2 H D RBC 4.08 L Hgb 11.7 L Hct 35.7 MCV 87.6 D MCH 28.7 MCHC 32.7 L RDW 15.3 H Plt Count 356 MPV 7.2 Neut % (Auto) 70.0 Lymph % (Auto) 14.8 L Braxton % (Auto) 14.6 H Eos % (Auto) 0.2 Baso % (Auto) 0.4 Neut # (Auto) 8.5 H Lymph # (Auto) 1.8 Braxton # (Auto) 1.8 H Eos # (Auto) 0.0 Baso # (Auto) 0.0 PT INR APTT D-Dimer, Quantitative pO2 23 L VBG pH 7.39 VBG pCO2 44 VBG HCO3 24.3 VBG Total CO2 28.0 VBG O2 Sat (Calc) 46.8 VBG Base Excess 1.2 VBG Potassium 4.0 Sodium 132.0 135 Chloride 100.0 101 Glucose 98 Lactate 2.4 H FiO2 21.0 Potassium 4.3 Carbon Dioxide 24 Anion Gap 14 BUN 20 Creatinine 1.1 Est GFR ( Amer) > 60 Est GFR (Non-Af Amer) > 60 Random Glucose 98 Calcium 9.2 Total Bilirubin 0.8 AST 27 ALT 16 L D Alkaline Phosphatase 111 Total Creatine Kinase Troponin I 0.0310 NT-Pro-B Natriuret Pep 4420 H Total Protein 8.3 H Albumin 4.0 Globulin 4.2 H Albumin/Globulin Ratio 0.9 L Venous Blood Potassium 4.0 08/26/18 08/26/18 08/26/18 13:57 17:40 17:40 WBC RBC Hgb Hct MCV MCH MCHC RDW Plt Count MPV Neut % (Auto) Lymph % (Auto) Braxton % (Auto) Eos % (Auto) Baso % (Auto) Neut # (Auto) Lymph # (Auto) Braxton # (Auto) Eos # (Auto) Baso # (Auto) PT 13.0 INR 1.1 APTT 34.5 D-Dimer, Quantitative pO2 VBG pH VBG pCO2 VBG HCO3 VBG Total CO2 VBG O2 Sat (Calc) VBG Base Excess VBG Potassium Sodium Chloride Glucose Lactate FiO2 Potassium Carbon Dioxide Anion Gap BUN Creatinine Est GFR ( Amer) Est GFR (Non-Af Amer) Random Glucose Calcium Total Bilirubin AST ALT Alkaline Phosphatase Total Creatine Kinase 104 Troponin I 0.0870 NT-Pro-B Natriuret Pep Total Protein Albumin Globulin Albumin/Globulin Ratio Venous Blood Potassium 08/26/18 21:29 WBC RBC Hgb Hct MCV MCH MCHC RDW Plt Count MPV Neut % (Auto) Lymph % (Auto) Braxton % (Auto) Eos % (Auto) Baso % (Auto) Neut # (Auto) Lymph # (Auto) Braxton # (Auto) Eos # (Auto) Baso # (Auto) PT INR APTT D-Dimer, Quantitative 442 H pO2 VBG pH VBG pCO2 VBG HCO3 VBG Total CO2 VBG O2 Sat (Calc) VBG Base Excess VBG Potassium Sodium Chloride Glucose Lactate FiO2 Potassium Carbon Dioxide Anion Gap BUN Creatinine Est GFR ( Amer) Est GFR (Non-Af Amer) Random Glucose Calcium Total Bilirubin AST ALT Alkaline Phosphatase Total Creatine Kinase Troponin I NT-Pro-B Natriuret Pep Total Protein Albumin Globulin Albumin/Globulin Ratio Venous Blood Potassium Attending/Attestation - Attestation I have personally seen and examined this patient.: Yes I have fully participated in the care of the patient.: Yes I have reviewed all pertinent clinical information: Yes Notes (Text): Patient seen and examined with the resident, agree with above Near syncopal episode, found on the floor by bystanders. No LOC no palpitations, chest pain prior to or after episode Will get orthostatics. No arrhythmias on ekg noted Cardiology for their expert opinion
--- NOTE | 2018-08-26 20:29 | CARD ---
APPROVED REPORT Date of service: 08/26/2018 EKG Measurement Heart [id number] <Conclusion> Sinus tachycardia Inferior infarct, age undetermined ST and T wave changes in anterior leads, consider acute injury vs infarct Abnormal ECG
[2018-08-27 05:47] LABS: HEMOGLOBIN 10.8 g/dL (12.0-18.0); MEAN CELL VOLUME 86.3 fl (80.0-94.0); MEAN CORPUSCULAR HEMOGLOBIN 28.9 pg (27.0-31.0); MEAN CORPUSCULAR HGB CONC 33.4 g/dL (33.0-37.0); RBC 3.74 Mil/uL (4.40-5.90); RED CELL DISTRIBUTION WIDTH 15.4 % (11.5-14.5); WHITE BLOOD COUNT 9.7 K/uL (4.8-10.8)
[2018-08-27 05:53] LABS: BLOOD UREA NITROGEN 19 mg/dl (9-20); GFR NON-AFRICAN AMERICAN > 60; HDL CHOLESTEROL 28 MG/DL (30-70)
[2018-08-27 06:04] LABS: LDL CHOLESTEROL 93 mg/dL (0-129)
[2018-08-27] MEDS ORDERED: ABACAVIR PO SCH (09:00)
[2018-08-27] MEDS ORDERED: DOLUTEGRAVIR PO SCH (09:00)
[2018-08-27] MEDS ORDERED: Pantoprazole 40 mg EC Tab PO SCH ×2 (09:00)
[2018-08-27] MEDS ORDERED: Enoxaparin 40 mg Syringe SC SCH (09:00)
[2018-08-27] MEDS ORDERED: LAMIVUDI PO SCH (09:00)
--- NOTE | 2018-08-27 09:18 | RAD ---
Date of service: 08/26/2018 PROCEDURE: CHEST RADIOGRAPH, 1 VIEW HISTORY: routine exam COMPARISON: 04/27/2018 FINDINGS: LUNGS: Clear. PLEURA: No pneumothorax or pleural fluid seen. CARDIOVASCULAR: Normal. OSSEOUS STRUCTURES: No significant abnormalities. VISUALIZED UPPER ABDOMEN: Normal. OTHER FINDINGS: None. IMPRESSION: No active disease.
--- NOTE | 2018-08-27 09:57 | CP.PCM.PN ---
Objective - Vital Signs/Intake and Output Vital Signs (last 24 hours): Temp Pulse Resp BP Pulse Ox 97.9 F 82 18 131/77 97 08/27/18 08:00 08/27/18 08:00 08/27/18 08:00 08/27/18 08:00 08/27/18 08:00 - Medications Medications: Current Medications Carvedilol (Coreg) 6.25 mg PO Q12 [facility] Last Admin: 08/26/18 21:36 Dose: 6.25 mg Clopidogrel Bisulfate (Plavix) 75 mg PO DAILY [facility] Enoxaparin Sodium (Lovenox) 40 mg SC DAILY [facility]; Protocol Home Med (Abacavir/Dolutegravir/Lamivudi [Triumeq 600-50-300 Mg Tablet]) 1 tab PO DAILY [facility] Lactobacillus Acidophilus (Bacid Acidophilus) 1 cap PO BID [facility] Losartan Potassium (Cozaar) 100 mg PO DAILY [facility] Pantoprazole Sodium (Protonix Ec Tab) 40 mg PO DAILY [facility] - Labs Labs: 08/27/18 05:10 08/27/18 05:10 PT 13.0 Seconds (9.8-13.1) 08/26/18 13:57 INR 1.1 08/26/18 13:57 APTT 34.5 Seconds (25.6-37.1) 08/26/18 13:57
[2018-08-27] MEDS: Lactobacillus Acidophilus 500 MU Cap PO SCH ×2 (10:11→16:13)
--- NOTE | 2018-08-27 10:11 | CP.PCM.CON ---
History of Present Illness - History of Present Illness History of Present Illness: Infectious Disease Consultation Note- asked to see this patient at the request of hospitalist . HPI- Patient is a 68 year old male with HTN, BPH and recently diagnosed HIV who was admitted with presyncopal episode pt. states he was here in 04/2018 for pneumonia and during that admission he was found to be HIV positive as well and he has been f/u wt the [facility] and is on Triumeq for His HIV. He states he was doing ok and noticed that in the past 2 ays his balance was not god and other day as he was walking back from grocery store he felt dizzy and fell and ambulance was called and he was brought to ED. He denies any cough or sob, denies any fever, denies any chills, denies any nausea or vomiting, denies any abd. pain, denies any dysurea, denies any diarrhea. denies any MEDEIROS. He states he feels much better now. Review of Systems - Review of Systems Review of Systems: ROS- as stated in HPI Past Patient History - Past Medical History & Family History Past Medical History?: Yes - Past Social History Alcohol: None Drugs: Denies - CARDIAC Hx Hypertension: Yes - PULMONARY Hx Chronic Obstructive Pulmonary Disease (COPD): Yes Hx Pneumonia: Yes - NEUROLOGICAL Hx Neurological Disorder: No - HEENT Hx HEENT Problems: No - RENAL Hx Chronic Kidney Disease: No - ENDOCRINE/METABOLIC Hx Endocrine Disorders: No - HEMATOLOGICAL/ONCOLOGICAL Hx Human Immunodeficiency Virus (HIV): Yes - INTEGUMENTARY Hx Dermatological Problems: No - MUSCULOSKELETAL/RHEUMATOLOGICAL Hx Falls: Yes - GENITOURINARY/GYNECOLOGICAL Hx Genitourinary Disorders: Yes (urinary retention) Hx Prostate Problems: Yes (Enlargement) Hx Urinary Tract Infection: Yes Other/Comment: Suprapubic cathether - PSYCHIATRIC Hx Anxiety: Yes Hx Depression: Yes - SURGICAL HISTORY Hx Surgeries: Yes - ANESTHESIA Hx Anesthesia: Yes Hx Anesthesia Reactions: No Meds Allergies/Adverse Reactions: Allergies Allergy/AdvReac Type Severity Reaction Status Date / Time No Known Allergies Allergy Verified 08/26/18 13:09 - Medications Medications: Current Medications Carvedilol (Coreg) 6.25 mg PO Q12 [facility] Last Admin: 08/26/18 21:36 Dose: 6.25 mg Clopidogrel Bisulfate (Plavix) 75 mg PO DAILY [facility] Enoxaparin Sodium (Lovenox) 40 mg SC DAILY [facility]; Protocol Home Med (Abacavir/Dolutegravir/Lamivudi [Triumeq 600-50-300 Mg Tablet]) 1 tab PO DAILY [facility] Lactobacillus Acidophilus (Bacid Acidophilus) 1 cap PO BID [facility] Losartan Potassium (Cozaar) 100 mg PO DAILY [facility] Pantoprazole Sodium (Protonix Ec Tab) 40 mg PO DAILY [facility] Physical Exam - Constitutional Appears: Non-toxic, No Acute Distress - Head Exam Head Exam: ATRAUMATIC - Eye Exam Eye Exam: EOMI - ENT Exam ENT Exam: Normal Exam - Neck Exam Neck exam: Positive for: Full Rom - Respiratory Exam Respiratory Exam: NORMAL BREATHING PATTERN Additional comments: no wheezing no crackles - Cardiovascular Exam Cardiovascular Exam: RRR, +S1, +S2 - GI/Abdominal Exam GI & Abdominal Exam: Normal Bowel Sounds, Soft Additional comments: NT, ND - Extremities Exam Extremities exam: Positive for: normal inspection - Neurological Exam Neurological exam: Alert, Oriented x3 Results - Vital Signs Recent Vital Signs: Last Vital Signs Temp 97.9 F 08/27/18 08:00 Pulse 82 08/27/18 08:00 Resp 18 08/27/18 08:00 BP 131/77 08/27/18 08:00 Pulse Ox 97 08/27/18 08:00 - Labs Result Diagrams: 08/27/18 05:10 08/27/18 05:10 Labs: Laboratory Results - last 24 hr 08/26/18 08/26/18 08/26/18 13:55 13:57 13:57 WBC 12.2 H D RBC 4.08 L Hgb 11.7 L Hct 35.7 MCV 87.6 D MCH 28.7 MCHC 32.7 L RDW 15.3 H Plt Count 356 MPV 7.2 Neut % (Auto) 70.0 Lymph % (Auto) 14.8 L [place] % (Auto) 14.6 H Eos % (Auto) 0.2 Baso % (Auto) 0.4 Neut # (Auto) 8.5 H Lymph # (Auto) 1.8 [place] # (Auto) 1.8 H Eos # (Auto) 0.0 Baso # (Auto) 0.0 PT INR APTT D-Dimer, Quantitative pO2 23 L VBG pH 7.39 VBG pCO2 44 VBG HCO3 24.3 VBG Total CO2 28.0 VBG O2 Sat (Calc) 46.8 VBG Base Excess 1.2 VBG Potassium 4.0 Sodium 132.0 135 Chloride 100.0 101 Glucose 98 Lactate 2.4 H FiO2 21.0 Potassium 4.3 Carbon Dioxide 24 Anion Gap 14 BUN 20 Creatinine 1.1 Est GFR ( Amer) > 60 Est GFR (Non-Af Amer) > 60 Random Glucose 98 Calcium 9.2 Total Bilirubin 0.8 AST 27 ALT 16 L D Alkaline Phosphatase 111 Total Creatine Kinase Troponin I 0.0310 NT-Pro-B Natriuret Pep 4420 H Total Protein 8.3 H Albumin 4.0 Globulin 4.2 H Albumin/Globulin Ratio 0.9 L Triglycerides Cholesterol LDL Cholesterol Direct HDL Cholesterol Venous Blood Potassium 4.0 08/26/18 08/26/18 08/26/18 13:57 17:40 17:40 WBC RBC Hgb Hct MCV MCH MCHC RDW Plt Count MPV Neut % (Auto) Lymph % (Auto) [place] % (Auto) Eos % (Auto) Baso % (Auto) Neut # (Auto) Lymph # (Auto) [place] # (Auto) Eos # (Auto) Baso # (Auto) PT 13.0 INR 1.1 APTT 34.5 D-Dimer, Quantitative pO2 VBG pH VBG pCO2 VBG HCO3 VBG Total CO2 VBG O2 Sat (Calc) VBG Base Excess VBG Potassium Sodium Chloride Glucose Lactate FiO2 Potassium Carbon Dioxide Anion Gap BUN Creatinine Est GFR ( Amer) Est GFR (Non-Af Amer) Random Glucose Calcium Total Bilirubin AST ALT Alkaline Phosphatase Total Creatine Kinase 104 Troponin I 0.0870 NT-Pro-B Natriuret Pep Total Protein Albumin Globulin Albumin/Globulin Ratio Triglycerides Cholesterol LDL Cholesterol Direct HDL Cholesterol Venous Blood Potassium 08/26/18 08/27/18 08/27/18 21:29 05:10 05:10 WBC 9.7 RBC 3.74 L Hgb 10.8 L Hct 32.3 L MCV 86.3 MCH 28.9 MCHC 33.4 RDW 15.4 H Plt Count 303 MPV Neut % (Auto) Lymph % (Auto) [place] % (Auto) Eos % (Auto) Baso % (Auto) Neut # (Auto) Lymph # (Auto) [place] # (Auto) Eos # (Auto) Baso # (Auto) PT INR APTT D-Dimer, Quantitative 442 H pO2 VBG pH VBG pCO2 VBG HCO3 VBG Total CO2 VBG O2 Sat (Calc) VBG Base Excess VBG Potassium Sodium 135 Chloride 103 Glucose Lactate FiO2 Potassium 4.0 Carbon Dioxide 24 Anion Gap 12 BUN 19 Creatinine 0.9 Est GFR ( Amer) > 60 Est GFR (Non-Af Amer) > 60 Random Glucose 93 Calcium 9.0 Total Bilirubin AST ALT Alkaline Phosphatase Total Creatine Kinase Troponin I NT-Pro-B Natriuret Pep Total Protein Albumin Globulin Albumin/Globulin Ratio Triglycerides 69 D Cholesterol 131 LDL Cholesterol Direct 93 HDL Cholesterol 28 L Venous Blood Potassium Laboratory Results - last 72 hr 08/26/18 08/26/18 08/26/18 13:55 13:57 13:57 WBC 12.2 H D RBC 4.08 L Hgb 11.7 L Hct 35.7 MCV 87.6 D MCH 28.7 MCHC 32.7 L RDW 15.3 H Plt Count 356 MPV 7.2 Neut % (Auto) 70.0 Lymph % (Auto) 14.8 L [place] % (Auto) 14.6 H Eos % (Auto) 0.2 Baso % (Auto) 0.4 Neut # (Auto) 8.5 H Lymph # (Auto) 1.8 [place] # (Auto) 1.8 H Eos # (Auto) 0.0 Baso # (Auto) 0.0 PT INR APTT D-Dimer, Quantitative pO2 23 L VBG pH 7.39 VBG pCO2 44 VBG HCO3 24.3 VBG Total CO2 28.0 VBG O2 Sat (Calc) 46.8 VBG Base Excess 1.2 VBG Potassium 4.0 Sodium 132.0 135 Chloride 100.0 101 Glucose 98 Lactate 2.4 H FiO2 21.0 Potassium 4.3 Carbon Dioxide 24 Anion Gap 14 BUN 20 Creatinine 1.1 Est GFR ( Amer) > 60 Est GFR (Non-Af Amer) > 60 Random Glucose 98 Hemoglobin A1c Calcium 9.2 Total Bilirubin 0.8 AST 27 ALT 16 L D Alkaline Phosphatase 111 Total Creatine Kinase Troponin I 0.0310 NT-Pro-B Natriuret Pep 4420 H Total Protein 8.3 H Albumin 4.0 Globulin 4.2 H Albumin/Globulin Ratio 0.9 L Triglycerides Cholesterol LDL Cholesterol Direct HDL Cholesterol Venous Blood Potassium 4.0 Urine Opiates Screen Urine Methadone Screen Ur Barbiturates Screen Ur Phencyclidine Scrn Ur Amphetamines Screen U Benzodiazepines Scrn U Oth Cocaine Metabols U Cannabinoids Screen Absolute Lymphs (Flow) % CD4 Cells Absolute CD4 Count T-Help/Suppress Ratio % CD8 Cells Absolute CD8 Count 08/26/18 08/26/18 08/26/18 13:57 17:40 17:40 WBC RBC Hgb Hct MCV MCH MCHC RDW Plt Count MPV Neut % (Auto) Lymph % (Auto) [place] % (Auto) Eos % (Auto) Baso % (Auto) Neut # (Auto) Lymph # (Auto) [place] # (Auto) Eos # (Auto) Baso # (Auto) PT 13.0 INR 1.1 APTT 34.5 D-Dimer, Quantitative pO2 VBG pH VBG pCO2 VBG HCO3 VBG Total CO2 VBG O2 Sat (Calc) VBG Base Excess VBG Potassium Sodium Chloride Glucose Lactate FiO2 Potassium Carbon Dioxide Anion Gap BUN Creatinine Est GFR ( Amer) Est GFR (Non-Af Amer) Random Glucose Hemoglobin A1c Calcium Total Bilirubin AST ALT Alkaline Phosphatase Total Creatine Kinase 104 Troponin I 0.0870 NT-Pro-B Natriuret Pep Total Protein Albumin Globulin Albumin/Globulin Ratio Triglycerides Cholesterol LDL Cholesterol Direct HDL Cholesterol Venous Blood Potassium Urine Opiates Screen Urine Methadone Screen Ur Barbiturates Screen Ur Phencyclidine Scrn Ur Amphetamines Screen U Benzodiazepines Scrn U Oth Cocaine Metabols U Cannabinoids Screen Absolute Lymphs (Flow) % CD4 Cells Absolute CD4 Count T-Help/Suppress Ratio % CD8 Cells Absolute CD8 Count 08/26/18 08/26/18 08/27/18 17:40 21:29 05:10 WBC 9.7 RBC 3.74 L Hgb 10.8 L Hct 32.3 L MCV 86.3 MCH 28.9 MCHC 33.4 RDW 15.4 H Plt Count 303 MPV Neut % (Auto) Lymph % (Auto) [place] % (Auto) Eos % (Auto) Baso % (Auto) Neut # (Auto) Lymph # (Auto) [place] # (Auto) Eos # (Auto) Baso # (Auto) PT INR APTT D-Dimer, Quantitative 442 H pO2 VBG pH VBG pCO2 VBG HCO3 VBG Total CO2 VBG O2 Sat (Calc) VBG Base Excess VBG Potassium Sodium Chloride Glucose Lactate FiO2 Potassium Carbon Dioxide Anion Gap BUN Creatinine Est GFR ( Amer) Est GFR (Non-Af Amer) Random Glucose Hemoglobin A1c Calcium Total Bilirubin AST ALT Alkaline Phosphatase Total Creatine Kinase Troponin I NT-Pro-B Natriuret Pep Total Protein Albumin Globulin Albumin/Globulin Ratio Triglycerides Cholesterol LDL Cholesterol Direct HDL Cholesterol Venous Blood Potassium Urine Opiates Screen Urine Methadone Screen Ur Barbiturates Screen Ur Phencyclidine Scrn Ur Amphetamines Screen U Benzodiazepines Scrn U Oth Cocaine Metabols U Cannabinoids Screen Absolute Lymphs (Flow) 1901 % CD4 Cells 16 L Absolute CD4 Count 312 L T-Help/Suppress Ratio 0.28 L % CD8 Cells 60 H Absolute CD8 Count 1134 08/27/18 08/27/18 08/27/18 05:10 05:10 16:35 WBC RBC Hgb Hct MCV MCH MCHC RDW Plt Count MPV Neut % (Auto) Lymph % (Auto) [place] % (Auto) Eos % (Auto) Baso % (Auto) Neut # (Auto) Lymph # (Auto) [place] # (Auto) Eos # (Auto) Baso # (Auto) PT INR APTT D-Dimer, Quantitative pO2 VBG pH VBG pCO2 VBG HCO3 VBG Total CO2 VBG O2 Sat (Calc) VBG Base Excess VBG Potassium Sodium 135 Chloride 103 Glucose Lactate FiO2 Potassium 4.0 Carbon Dioxide 24 Anion Gap 12 BUN 19 Creatinine 0.9 Est GFR ( Amer) > 60 Est GFR (Non-Af Amer) > 60 Random Glucose 93 Hemoglobin A1c 6.1 Calcium 9.0 Total Bilirubin AST ALT Alkaline Phosphatase Total Creatine Kinase Troponin I 0.0260 NT-Pro-B Natriuret Pep Total Protein Albumin Globulin Albumin/Globulin Ratio Triglycerides 69 D Cholesterol 131 LDL Cholesterol Direct 93 HDL Cholesterol 28 L Venous Blood Potassium Urine Opiates Screen Urine Methadone Screen Ur Barbiturates Screen Ur Phencyclidine Scrn Ur Amphetamines Screen U Benzodiazepines Scrn U Oth Cocaine Metabols U Cannabinoids Screen Absolute Lymphs (Flow) % CD4 Cells Absolute CD4 Count T-Help/Suppress Ratio % CD8 Cells Absolute CD8 Count 08/27/18 17:02 WBC RBC Hgb Hct MCV MCH MCHC RDW Plt Count MPV Neut % (Auto) Lymph % (Auto) [place] % (Auto) Eos % (Auto) Baso % (Auto) Neut # (Auto) Lymph # (Auto) [place] # (Auto) Eos # (Auto) Baso # (Auto) PT INR APTT D-Dimer, Quantitative pO2 VBG pH VBG pCO2 VBG HCO3 VBG Total CO2 VBG O2 Sat (Calc) VBG Base Excess VBG Potassium Sodium Chloride Glucose Lactate FiO2 Potassium Carbon Dioxide Anion Gap BUN Creatinine Est GFR ( Amer) Est GFR (Non-Af Amer) Random Glucose Hemoglobin A1c Calcium Total Bilirubin AST ALT Alkaline Phosphatase Total Creatine Kinase Troponin I NT-Pro-B Natriuret Pep Total Protein Albumin Globulin Albumin/Globulin Ratio Triglycerides Cholesterol LDL Cholesterol Direct HDL Cholesterol Venous Blood Potassium Urine Opiates Screen Negative Urine Methadone Screen Negative Ur Barbiturates Screen Negative Ur Phencyclidine Scrn Negative Ur Amphetamines Screen Negative U Benzodiazepines Scrn Negative U Oth Cocaine Metabols Negative U Cannabinoids Screen Negative Absolute Lymphs (Flow) % CD4 Cells Absolute CD4 Count T-Help/Suppress Ratio % CD8 Cells Absolute CD8 Count Assessment & Plan (1) Dizziness Status: Acute (2) HIV (human immunodeficiency virus infection) Status: Chronic Priority: High (3) BPH (benign prostatic hyperplasia) Status: Chronic - Assessment and Plan (Free Text) Assessment: A/p- 68 year old male wih HIV, HTN, BPH admitted with dizziness and presyncope. afebrile had minimal leukocytosis which has resolved. cxr- reported negative chect Ct report r/o malignancy as per radiologits' report. latest Cd4-312 plan- advise to continue with his current HAARt regimen. advised to check UA rule out any UTI as possible source of his dizziness. advise to check cardiac work up for presyncope. advisse pulmonary evaluation of the chest Ct report. advise to hold off on any antibiotic since pt. is afebrile and no sign of sepsi s at this time pending urinalysis. All labs and imaging and chart notes reviewed. All above also d/w patient and he verbalizes full understanding of all above and agrees with above plan of care. Thank you for allowing me to take part in the care of this patient.
[2018-08-27] MEDS ORDERED: Sodium Chloride 0.9% 50 ML IV ONE (12:24)
[2018-08-27] MEDS ORDERED: Iodixanol 320 MG/ML 100 ML BOTTLE IV ONE (12:24)
--- NOTE | 2018-08-27 15:37 | US ---
Date of service: 08/27/2018 PROCEDURE: Duplex ultrasound of the carotid and vertebral arteries. HISTORY: syncope COMPARISON: None available. TECHNIQUE: Grayscale and duplex Doppler evaluation of the cervical carotid and vertebral arteries were performed. The common carotid, carotid bifurcations and cervical ICA and proximal ECA were evaluated. The vertebral arteries were evaluated for gross patency and direction. FINDINGS: RIGHT CAROTID ARTERIES: Common Carotid Artery: Maximal flow velocity of 71.6 cm/s. Carotid Bifurcation: Intimal thickening is present Internal Carotid Artery:Heterogeneous plaque formation. Maximal flow velocity of 114.6 cm/s. External Carotid Artery (proximal branches): Maximal flow velocity of 92.5 cm/s. ICA/CCA Ratio: 1.6 LEFT CAROTID ARTERIES: Common Carotid Artery: Maximal flow velocity of 88.2 cm/s. Carotid Bifurcation: Intimal thickening is present Internal Carotid Artery:Heterogeneous plaque formation. Maximal flow velocity of 77.7 cm/s. External Carotid Artery (proximal branches): Maximal flow velocity of 96.0 cm/s. ICA/CCA Ratio: 0.9 VERTEBRAL ARTERIES: Right Vertebral Artery: Patent. Antegrade flow. Left Vertebral Artery: Patent. Antegrade flow. OTHER FINDINGS: Atherosclerotic calcification present. IMPRESSION: Right ICA degree of stenosis: Less than 50% Left ICA degree of stenosis: Less than 50% Reference Internal Carotid Artery (ICA) Peak Systolic Velocity (PSV) for above: 1. Less than 50% stenosis less than 125 cm/s peak systolic velocity 2. 50-69% stenosis 125-230cm/s peak systolic velocity 3. Greater than 70% but less than near occlusion greater than 230 cm/s peak systolic velocity
[2018-08-27 15:49] VITALS: BP 120/76; PULSE 77; RESP 16; TEMP 97.9; O2SAT 99
--- NOTE | 2018-08-27 16:20 | CT ---
Date of service: 08/27/2018 PROCEDURE: CT Chest with contrast (Pulmonary Angiogram) HISTORY: r/o PE COMPARISON: 04/26/2018 CT chest TECHNIQUE: Axial computed tomography images were obtained of the chest in the pulmonary arterial phase of enhancement. Coronal and sagittal reformatted images were created and reviewed. Intravenous contrast dose: 90 mL Visipaque 320 Radiation dose: Total exam DLP = 291.5 mGy-cm. This CT exam was performed using one or more of the following dose reduction techniques: Automated exposure control, adjustment of the mA and/or kV according to patient size, and/or use of iterative reconstruction technique. FINDINGS: PULMONARY ARTERIES: Unremarkable. No pulmonary embolism. AORTA: No acute findings. No thoracic aortic aneurysm. Minimal calcified atheromatous plaque in the thoracic aorta. LUNGS: Incomplete interval resolution of ill-defined bilateral pulmonary opacities since prior examination. There is mild residual multifocal opacities in left upper lobe including lingular segment, in right upper lobe and in right middle lobe. No new infiltrate. Decreased extent of masslike consolidation in lingula. Calcified granuloma in left lower lobe. PLEURAL SPACES: Unremarkable. No effusion or pneumothorax. HEART: Unremarkable. No cardiomegaly. No significant pericardial effusion. LYMPH NODES: No lymphadenopathy. BONES, CHEST WALL: Unremarkable. No fracture or destructive lesion OTHER FINDINGS: Unremarkable. IMPRESSION: No evidence of pulmonary embolism. Incomplete clearing of bilateral nonspecific opacities compared to CT of 04/26/2018. decreased extent of focal mass-like consolidation in the lingula. Followup to clearing to exclude neoplasm is advised. Old granulomatous disease.
--- NOTE | 2018-08-27 17:32 | CP.PCM.DIS ---
Provider - Provider Date of Admission: 08/26/18 15:21 Attending physician: Yousif Hernandez Time Spent in preparation of Discharge (in minutes): 33 Diagnosis - Discharge Diagnosis (1) CAD (coronary artery disease) Status: Chronic (2) Near syncope Status: Resolved (3) HIV (human immunodeficiency virus infection) Status: Chronic (4) HTN (hypertension) Status: Chronic Hospital Course - Lab Results Lab Results: Most Recent Lab Values WBC 9.7 K/uL (4.8-10.8) 08/27/18 05:10 RBC 3.74 Mil/uL (4.40-5.90) L 08/27/18 05:10 Hgb 10.8 g/dL (12.0-18.0) L 08/27/18 05:10 Hct 32.3 % (35.0-51.0) L 08/27/18 05:10 MCV 86.3 fl (80.0-94.0) 08/27/18 05:10 MCH 28.9 pg (27.0-31.0) 08/27/18 05:10 MCHC 33.4 g/dL (33.0-37.0) 08/27/18 05:10 RDW 15.4 % (11.5-14.5) H 08/27/18 05:10 Plt Count 303 K/uL (130-400) 08/27/18 05:10 MPV 7.2 fl (7.2-11.7) 08/26/18 13:57 Neut % (Auto) 70.0 % (50.0-75.0) 08/26/18 13:57 Lymph % (Auto) 14.8 % (20.0-40.0) L 08/26/18 13:57 [place] % (Auto) 14.6 % (0.0-10.0) H 08/26/18 13:57 Eos % (Auto) 0.2 % (0.0-4.0) 08/26/18 13:57 Baso % (Auto) 0.4 % (0.0-2.0) 08/26/18 13:57 Neut # (Auto) 8.5 K/uL (1.8-7.0) H 08/26/18 13:57 Lymph # (Auto) 1.8 K/uL (1.0-4.3) 08/26/18 13:57 [place] # (Auto) 1.8 K/uL (0.0-0.8) H 08/26/18 13:57 Eos # (Auto) 0.0 K/uL (0.0-0.7) 08/26/18 13:57 Baso # (Auto) 0.0 K/uL (0.0-0.2) 08/26/18 13:57 PT 13.0 Seconds (9.8-13.1) 08/26/18 13:57 INR 1.1 08/26/18 13:57 APTT 34.5 Seconds (25.6-37.1) 08/26/18 13:57 D-Dimer, Quantitative 442 ng/mlDDU (0-230) H 08/26/18 21:29 pO2 23 mm/Hg (30-55) L 08/26/18 13:55 VBG pH 7.39 (7.32-7.43) 08/26/18 13:55 VBG pCO2 44 mmHg (40-60) 08/26/18 13:55 VBG HCO3 24.3 mmol/L 08/26/18 13:55 VBG Total CO2 28.0 mmol/L (22-28) 08/26/18 13:55 VBG O2 Sat (Calc) 46.8 % (40-65) 08/26/18 13:55 VBG Base Excess 1.2 mmol/L (0.0-2.0) 08/26/18 13:55 VBG Potassium 4.0 mmol/L (3.6-5.2) 08/26/18 13:55 Sodium 132.0 mmol/L (132-148) 08/26/18 13:55 Chloride 100.0 mmol/L (98-107) 08/26/18 13:55 Glucose 98 mg/dL (75-110) 08/26/18 13:55 Lactate 2.4 mmol/L (0.7-2.1) H 08/26/18 13:55 FiO2 21.0 % 08/26/18 13:55 Sodium 135 mmol/l (132-148) 08/27/18 05:10 Potassium 4.0 MMOL/L (3.6-5.0) 08/27/18 05:10 Chloride 103 mmol/L (98-107) 08/27/18 05:10 Carbon Dioxide 24 mmol/L (22-30) 08/27/18 05:10 Anion Gap 12 (10-20) 08/27/18 05:10 BUN 19 mg/dl (9-20) 08/27/18 05:10 Creatinine 0.9 mg/dl (0.8-1.5) 08/27/18 05:10 Est GFR ( Amer) > 60 08/27/18 05:10 Est GFR (Non-Af Amer) > 60 08/27/18 05:10 Random Glucose 93 mg/dL (75-110) 08/27/18 05:10 Hemoglobin A1c 6.1 % (4.2-6.5) 08/27/18 05:10 Calcium 9.0 mg/dL (8.4-10.2) 08/27/18 05:10 Total Bilirubin 0.8 mg/dl (0.2-1.3) 08/26/18 13:57 AST 27 U/L (17-59) 08/26/18 13:57 ALT 16 U/L (21-72) L D 08/26/18 13:57 Alkaline Phosphatase 111 U/L (38-126) 08/26/18 13:57 Total Creatine Kinase 104 U/L (55-170) 08/26/18 17:40 Troponin I 0.0260 ng/mL (0.00-0.120) 08/27/18 16:35 NT-Pro-B Natriuret Pep 4420 pg/ml (0-900) H 08/26/18 13:57 Total Protein 8.3 G/DL (6.3-8.2) H 08/26/18 13:57 Albumin 4.0 g/dL (3.5-5.0) 08/26/18 13:57 Globulin 4.2 gm/dL (2.2-3.9) H 08/26/18 13:57 Albumin/Globulin Ratio 0.9 (1.0-2.1) L 08/26/18 13:57 Triglycerides 69 mg/DL (0-149) D 08/27/18 05:10 Cholesterol 131 mg/dL (0-199) 08/27/18 05:10 LDL Cholesterol Direct 93 mg/dL (0-129) 08/27/18 05:10 HDL Cholesterol 28 MG/DL (30-70) L 08/27/18 05:10 Venous Blood Potassium 4.0 mmol/L (3.6-5.2) 08/26/18 13:55 - Hospital Course Hospital Course: 68 Y/O Male with PMHx of HTN, BPH, Anxiety, HIV, h/o admission on April for PNA, admitted to observation telemetry on 08/26/18 for a syncopal episode in the street without LOC. During his hospital stay a CT scan of head was done on admission showed no interval intracranial hemorrhage or mass effect and no interval pathology noted, EKG done showed inferior infarct age undetermined and previous visits EKG was also reviewed and compared, at the same time CE serial Troponin I x 3 done were all within normal range, CXR showed no active disease, Carotid doppler US reported less than 50 % stenosis of ICA, chest CT showed no evidence of PE. Patient was also evaluated by cardiology and Infectious disease specialists and recommendation were given and reviewed. Patient stayed in the hospital for observation overnight with no acute events and no reports of c/o dizziness, lightheadedness, headache, chest pain, SOB, abdominal pain, nausea, vomiting , fever or other event during the observation period. On discharge patient was hemodinamically stable and denied lightheadedness, MEDEIROS, dizziness, chest pain or other acute medical complain. On discharge process patient was instructed to follow up with his PMD Dr Doyle at the [facility] within a week, also ED return instruction were given to return to the ED if his symptoms recurs or if any other concerning symptoms presents. Everything was discussed with patient and patient verbalized understanding and plan. Discharge Exam - Head Exam Head Exam: ATRAUMATIC, NORMAL INSPECTION, NORMOCEPHALIC - Eye Exam Eye Exam: EOMI, PERRL - ENT Exam ENT Exam: Mucous Membranes Moist - Respiratory Exam Respiratory Exam: Clear to PA & Lateral. absent: Wheezes - Cardiovascular Exam Cardiovascular Exam: RRR, +S1, +S2 - GI/Abdominal Exam GI & Abdominal Exam: Normal Bowel Sounds. absent: Mass, Tenderness - Extremities Exam Extremities exam: full ROM - Back Exam Back exam: absent: CVA tenderness (L), CVA tenderness (R) - Neurological Exam Neurological exam: Alert, CN II-XII Intact, Oriented x3 - Psychiatric Exam Psychiatric exam: Normal Mood - Skin Skin Exam: Normal Color, Warm Discharge Plan - Follow Up Plan Condition: FAIR Disposition: HOME/ ROUTINE Instructions: Syncope (Fainting) (DC) Additional Instructions: Follow up with PMD within 1 week. ED return instructions: Return to the ED if your symptoms of lightheadedness recurs, or you have MEDEIROS, dizziness, palpitations or any other concerning symptoms. Referrals: [facility] [Outside]
[2018-08-27 18:18] LABS: BARBITURATES, UR NEGATIVE (NEGATIVE); BENZODIAZEPINES, UR NEGATIVE (NEGATIVE); OPIATES, UR NEGATIVE (NEGATIVE); PHENCYCLIDINE, UR NEGATIVE (NEGATIVE)
[2018-08-27 19:04] LABS: % CD4 (T HELPER CELL) 16 Percent (30-61); % CD8 (SUPPRESSOR T CELL) 60 Percent (12-42); ABSOLUTE CD4 CELLS 312 Cells/mcL (490-1740); ABSOLUTE CD8 CELLS 1134 Cells/mcL (180-1170); ABSOLUTE LYMPHOCYTES 1901 Cells/mcL (850-3900); HELPER/SUPPRESSOR RATIO 0.28 Ratio (0.86-5.00)
--- NOTE | 2018-08-27 21:13 | CON ---
DATE: 08/27/2018 CARDIOLOGY CONSULTATION REASON FOR CONSULTATION: Near syncope. HISTORY OF PRESENT ILLNESS: The patient is 68-year-old male who has a history of hypertension and HIV positive, was recently admitted in 03/2018 for pneumonia. The patient was discharged but lately he felt weak and was trying to go back on his feet. The patient while walking locally, he felt dizzy and collapsed on the sidewalk, reaching sidewalk with his left knee, sustained no visible injuries, and there was no head injury as the patient was trying to hold into stop sign pole before he collapsed to the floor. The patient denies any loss of consciousness and denies any similar episode in the past. The patient denies any retrosternal chest pain and does not recall experiencing palpitation prior to his fall. SOCIAL HISTORY: The patient is a former smoker. He lives with his cousin. 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 MEDICATIONS: Current medications are Protonix 40 mg p.o. once a day, Plavix 75 mg once a day, Lovenox 40 mg subcutaneous once a day, Cozaar 100 mg once a day, Coreg 6.25 mg twice a day. REVIEW OF SYSTEMS: No nausea or vomiting. The patient was reported to have low-grade fever while in the hospital. PHYSICAL EXAMINATION: GENERAL: The patient is an elderly male who does not appear to be in acute distress. VITAL SIGNS: Blood pressure 131/77, heart rate 82, temperature 97.9, earlier temperature was 99.9, respirations 18. HEENT: Pale conjunctivae. CHEST: Clear. HEART: S1 and S2 are regular. ABDOMEN: Soft. EXTREMITIES: No edema. LABORATORY DATA: Hemoglobin and hematocrit 10.8 and 32.3, white count and platelet count are within normal limit. PT, PTT, and INR are within normal limits. D-dimer is 442. SMA-7: Sodium 135, potassium 4, chloride 103, CO2 of 24, glucose 93, BUN 19, creatinine 0.9. ProBNP is 4420. Two sets of troponins are not in elevated range. Head CT scan without contrast, no interval intracranial hemorrhage or mass effect. Chronic appearing microvascular ischemic changes in white matter, generalized cerebral atrophy. Chest x-ray was unremarkable. EKG reveals sinus tachycardia with ischemic anterior T-wave changes, heart rate is 108. Echocardiographic study performed in 03/2018 during the last admission revealed normal ejection fraction. ASSESSMENT: 1. Syncopal episode. 2. Sinus tachycardia with anterior T-wave inversion in leads V1 through V3, rule out right ventricular overload and pulmonary embolism which is excluded. 3. Human immunodeficiency virus positive. 4. Systemic hypertension. RECOMMENDATIONS: Continue current Coreg 6.25 mg twice a day, Cozaar 100 mg once a day, Lovenox 40 mg subcutaneous once a day, Plavix 75 mg once a day. I ordered chest CT angio to rule out pulmonary embolism. I will request urine for drug screen. I will follow carotid Doppler study. Rj Cross MD
--- NOTE | 2018-09-02 19:11 | PQF ---
PROVIDER RESPONSE TEXT: asymptomatic REVIEWER QUERY TEXT: HIV Clarification and Associated Conditions HIV (Human immunodeficiency virus) is documented in the medical record. Please specify the type Such as: -- Acquired immune deficiency syndrome [AIDS] -- KBUU-[id number]-nbynent complex [ARC] -- Symptomatic -- Asymptomatic -- With current or previous HIV-related condition (please specify related condition) -- Exposure to HIV -- Inconclusive serologic evidence of HIV -- Other, please specify Also please include any associated conditions, if applicable. The patient's Clinical Indicators include: HIV Query created by: Becki Gallagher on 08/28/2018 10:31 AM Electronically signed by: Kristen Araujo MD 09/02/2018 7:08 PM
--- NOTE | 2018-09-02 19:11 | PQF ---
PROVIDER RESPONSE TEXT: vasovagal REVIEWER QUERY TEXT: Symptom Underlying Cause Please document the underlying diagnosis causing the patient?s documented symptom(s) of dizziness/syn cope or whether those are insignificant or unable to be further specified. The patient's Clinical Indicators include: Dizziness/syncope Query created by: Becki Gallagher on 08/28/2018 10:25 AM Electronically signed by: Kristen Araujo MD 09/02/2018 7:08 PM
== END 2018-08-27 19:00 | disposition home or self-care (01) | DRG 312 ==
LOC: H.ER 13:04 → H.ERHOLD 15:21 → H.TEL 17:33
PROVIDERS: ADMIT Hospitalist; ATTEND Hospitalist
DX: R55 Syncope and collapse (principal); I10 Essential (primary) hypertension; I25.10 Atherosclerotic heart disease of native coronary artery without angina pectoris; N40.0 Benign prostatic hyperplasia without lower urinary tract symptoms; F41.9 Anxiety disorder, unspecified; Z87.891 Personal history of nicotine dependence; R00.0 Tachycardia, unspecified; F32.9 Major depressive disorder, single episode, unspecified; J44.9 Chronic obstructive pulmonary disease, unspecified; Z21 Asymptomatic human immunodeficiency virus [HIV] infection status